=== PATIENT | female | born 1935 | race African-American/Black ===

== ENCOUNTER 2018-07-29 15:04 | Emergency (ER) | payer MEDICARE, OTHER ==
[~2018-07-29] VITALS: Ht 162.6 cm; Wt 72.6 kg
[2018-07-29 15:13] VITALS: BP 133/54
[2018-07-29] MEDS ORDERED: Sodium Chloride 500ML 500 ML IV ONE (15:40)
--- NOTE | 2018-07-29 17:04 | Diagnostic Imaging Report ---
Indication: Shortness of breath Technique: One view of the chest Comparison: none Findings: Right hemidiaphragm is elevated. The heart is borderline enlarged. There are degenerative changes of the thoracic spine. Impression: Border line cardiomegaly No acute process
[2018-07-29 17:05] LABS: BASOPHILS % (AUTO) 1.5 % (0.0-2.0); EOSINOPHILS % (AUTO) 2.5 % (0.0-3.0); HEMATOCRIT 42.1 % (37.0-47.0); HEMOGLOBIN 13.6 G/DL (12.0-16.0); LYMPHOCYTES % (AUTO) 21.3 % (20.0-45.0); MEAN CORPUSCULAR VOLUME 90 FL (80-99); MONOCYTES % (AUTO) 5.7 % (1.0-10.0); NEUTROPHILS % (AUTO) 69.1 % (45.0-75.0); PLATELET COUNT 237 K/UL (150-450); RED BLOOD COUNT 4.65 M/UL (4.20-5.40); RED CELL DISTRIBUTION WIDTH 14.7 % (11.6-14.8); WHITE BLOOD COUNT 5.2 K/UL (4.8-10.8)
[2018-07-29 17:25] LABS: ANION GAP 6 mmol/L (5-15); BLOOD UREA NITROGEN 21 mg/dL (7-18); CALCIUM 8.9 MG/DL (8.5-10.1); CARBON DIOXIDE 30 MMOL/L (21-32); CHLORIDE 107 MMOL/L (98-107); POTASSIUM 4.1 MMOL/L (3.5-5.1); SODIUM 143 MMOL/L (136-145)
[2018-07-29 17:32] LABS: ALANINE AMINOTRANSFERASE 27 U/L (12-78); ALBUMIN 2.9 G/DL (3.4-5.0); ALBUMIN/GLOBULIN RATIO 0.8 (1.0-2.7); ALKALINE PHOSPHATASE 65 U/L (46-116); ASPARTATE AMINO TRANSFERASE 21 U/L (15-37); BILIRUBIN,TOTAL 0.4 MG/DL (0.2-1.0); CKMB 0.5 NG/ML (0.0-3.6); CREATINE KINASE 50 U/L (26-308)
[2018-07-29 17:37] LABS: APPEARANCE,URINE CLEAR; BILIRUBIN, URINE NEGATIVE (NEGATIVE); GLUCOSE, URINE (UA) NEGATIVE (NEGATIVE); KETONES,URINE NEGATIVE (NEGATIVE); LEUKOCYTE ESTERASE ,URINE 1+ (NEGATIVE); NITRITE,URINE NEGATIVE (NEGATIVE); PH,URINE 6 (4.5-8.0); PROTEIN,URINE NEGATIVE (NEGATIVE); UROBILINOGEN,URINE 1 MG/DL (0.0-1.0)
[2018-07-29 17:39] LABS: COLOR,URINE YELLOW
--- NOTE | 2018-07-29 17:42 | Emergency Room Report ---
History of Present Illness General Chief Complaint: Syncope Source: Patient, Family Member Present Illness HPI 83-year-old female presents ED for evaluation. Patient brought in by EMS. grandson at bedside states that patient was at laundromat with him when she started to feel weak, became altered momentarily. Upon arrival patient is awake alert oriented 2 at baseline. History of dementia. Takes donepezil. Daughter states that patient has been having a slow mental decline over several months. States her PMD does not do anything for the patient. Upon arrival patient states she feels okay. Denies any dizziness or weakness. Denies chest pain or shortness of breath. Denies nausea or vomiting. No other aggravating relieving factors. Denies any other associated symptoms Allergies: Coded Allergies: ASPIRIN (Verified Allergy, Unknown, 07/29/18) Uncoded Allergies: PENICILLIN (Allergy, Unknown, 07/29/18) Patient History Past Medical History: DM, HTN Past Surgical History: none Pertinent Family History: none Social History: Denies: smoking, alcohol use, drug use Now: No Immunizations: UTD Reviewed Nursing Documentation: PMH: Agreed; PSxH: Agreed Nursing Documentation-PMH Past Medical History: No History, Except For Hx Hypertension: Yes Hx Diabetes: Yes Review of Systems All Other Systems: negative except mentioned in HPI Physical Exam Vital Signs Date Time Temp Pulse Resp B/P (MAP) Pulse Ox O2 Delivery O2 Flow Rate FiO2 07/29/18 15:07 98.1 75 14 121/59 99 Room Air 98.1 Sp02 EP Interpretation: reviewed, normal General Appearance: no apparent distress, alert, GCS 15, non-toxic Head: normocephalic, atraumatic Eyes: bilateral eye normal inspection, bilateral eye PERRL ENT: hearing grossly normal, normal pharynx, no angioedema, normal voice Neck: full range of motion, supple/symm/no masses Respiratory: chest non-tender, lungs clear, normal breath sounds, speaking full sentences Cardiovascular #1: regular rate, rhythm, no edema Cardiovascular #2: 2+ carotid (R), 2+ carotid (L), 2+ radial (R), 2+ radial (L) , 2+ dorsalis pedis (R), 2+ dorsalis pedis (L) Gastrointestinal: normal bowel sounds, non tender, soft, non-distended, no guarding, no rebound Rectal: deferred Genitourinary: normal inspection, no CVA tenderness Musculoskeletal: back normal, gait/station normal, normal range of motion, non- tender Neurologic: alert, oriented x3, responsive, motor strength/tone normal, sensory intact, speech normal Psychiatric: judgement/insight normal, memory normal, mood/affect normal, no suicidal/homicidal ideation Reflexes: 3+ bicep (R), 3+ bicep (L), 3+ tricep (R), 3+ tricep (L), 3+ knee (R) , 3+ knee (L) Skin: normal color, no rash, warm/dry, well hydrated Lymphatic: no adenopathy Medical Decision Making Diagnostic Impression: Primary Impression: Weakness ER Course Hospital Course 83 yo F presents with episode of weakness. no LOC Differential diagnoses include: arrythmia, dehydration, UTI Clinical course Patient placed on stretcher. on hospital monitor. After initial history and physical I ordered labs, EKG, chest Xray, IVFs labs reviewed- no leukocytosis, Hb/Hct stable, electrolytes ok, troponins negative, UA negative Chest x-ray- cardiomegaly EKG - NSR, no acute ischemic changes interpreted bym e Discussed findings with patient, family. Given negative workup and patient feeling better patient wishes to be discharged. Family agrees. I agree with assessment pending close outpatient follow-up. Family just moved here and is requesting PMD referral. I will provide PMD referrals I. I feel this is a highly complex case requiring extensive working including EKG/Rhythm strip, Xray/CT/US, Blood/urine lab work, repeat exams while in ED, and administration of strong opiates/narcotics for pain control, admission to hospital or close patient follow up. Diagnosis - weakness Stable and discharged to home. Followup with PMD. Return to ED if symptoms recur or worsen Labs Test 07/29/18 16:50 07/29/18 17:00 White Blood Count 5.2 K/UL (4.8-10.8) Red Blood Count 4.65 M/UL (4.20-5.40) Hemoglobin 13.6 G/DL (12.0-16.0) Hematocrit 42.1 % (37.0-47.0) Mean Corpuscular Volume 90 FL (80-99) Mean Corpuscular Hemoglobin 29.2 PG (27.0-31.0) Mean Corpuscular Hemoglobin Concent 32.3 G/DL (32.0-36.0) Red Cell Distribution Width 14.7 % (11.6-14.8) Platelet Count 237 K/UL (150-450) Mean Platelet Volume 5.6 FL (6.5-10.1) Neutrophils (%) (Auto) 69.1 % (45.0-75.0) Lymphocytes (%) (Auto) 21.3 % (20.0-45.0) Monocytes (%) (Auto) 5.7 % (1.0-10.0) Eosinophils (%) (Auto) 2.5 % (0.0-3.0) Basophils (%) (Auto) 1.5 % (0.0-2.0) Sodium Level 143 MMOL/L (136-145) Potassium Level 4.1 MMOL/L (3.5-5.1) Chloride Level 107 MMOL/L (98-107) Carbon Dioxide Level 30 MMOL/L (21-32) Anion Gap 6 mmol/L (5-15) Blood Urea Nitrogen 21 mg/dL (7-18) Creatinine 1.0 MG/DL (0.55-1.30) Estimat Glomerular Filtration Rate mL/min (>60) Glucose Level 103 MG/DL (74-106) Calcium Level 8.9 MG/DL (8.5-10.1) Total Bilirubin 0.4 MG/DL (0.2-1.0) Aspartate Amino Transf (AST/SGOT) 21 U/L (15-37) Alanine Aminotransferase (ALT/SGPT) 27 U/L (12-78) Alkaline Phosphatase 65 U/L (46-116) Total Creatine Kinase 50 U/L (26-308) Creatine Kinase MB 0.5 NG/ML (0.0-3.6) Creatine Kinase MB Relative Index 1.0 Troponin I 0.028 ng/mL (0.000-0.056) Pro-B-Type Natriuretic Peptide 689 pg/mL (0-125) Total Protein 6.5 G/DL (6.4-8.2) Albumin 2.9 G/DL (3.4-5.0) Globulin 3.6 g/dL Albumin/Globulin Ratio 0.8 (1.0-2.7) Urine Color Yellow Urine Appearance Clear Urine pH 6 (4.5-8.0) Urine Specific [place] 1.015 (1.005-1.035) Urine Protein Negative (NEGATIVE) Urine Glucose (UA) Negative (NEGATIVE) Urine Ketones Negative (NEGATIVE) Urine Blood Negative (NEGATIVE) Urine Nitrite Negative (NEGATIVE) Urine Bilirubin Negative (NEGATIVE) Urine Urobilinogen 1 MG/DL (0.0-1.0) Urine Leukocyte Esterase 1+ (NEGATIVE) Urine RBC 0-2 /HPF (0 - 2) Urine WBC 0-2 /HPF (0 - 2) Urine Squamous Epithelial Cells Few /LPF (NONE/OCC) Urine Bacteria Few /HPF (NONE) EKG Diagnostic Results Rate: normal Rhythm: NSR ST Segments: no acute changes ASA given to the pt in ED: No Rhythm Strip Diag. Results EP Interpretation: yes Rhythm: NSR, no PVC's, no ectopy Chest X-Ray Diagnostic Results Chest X-Ray Diagnostic Results : Chest X-Ray Ordered: Yes # of Views/Limited/Complete: 1 View Indication: Other - weakness EP Interpretation: Yes Interpretation: no consolidation, no effusion, no pneumothorax, no acute cardiopulmonary disease, other - cardiomegaly Impression: Other - cardiomegaly Electronically Signed by: Electronically signed by Ariel Lang MD Last Vital Signs Date Time Temp Pulse Resp B/P (MAP) Pulse Ox O2 Delivery O2 Flow Rate FiO2 07/29/18 15:13 98.1 68 14 133/54 99 Room Air 98.1 Status: improved Disposition: HOME, SELF-CARE Condition: Stable Ariel Lang MD Jul 29, 2018 17:42
[2018-07-29 18:44] VITALS: BP 130/50
--- NOTE | 2018-08-01 16:14 | Cardiology Report ---
APPROVED REPORT EKG Measurement Heart [id number] Atrial fibrillation Possible Anterior infarct, age undetermined Abnormal ECG
== END 2018-07-29 18:35 | disposition home or self-care (01) ==
LOC: EDBD 15:04 → EMR 17:25
DX: R53.1 Weakness (principal); R55 Syncope and collapse; E11.9 Type 2 diabetes mellitus without complications; I10 Essential (primary) hypertension; Z88.6 Allergy status to analgesic agent; Z88.0 Allergy status to penicillin
CPT/HCPCS: 36415; 71045; 80053; 81003; 82550; 82553; 83880; 84484; 85025; 93005; 99283

== ENCOUNTER 2018-10-16 02:26 | Inpatient (IN) | payer MEDICARE ==
[~2018-10-16] VITALS: Ht 160 cm; Wt 83.9 kg
[2018-10-16] MEDS ORDERED: MUCINEX COLD-F177 M1 PO (02:41)
[2018-10-16 02:45] VITALS: BP 123/61
[2018-10-16] MEDS ORDERED: Acetaminophen 500mg (ES) tab ORAL ONE (03:15)
[2018-10-16 03:19] LABS: EOSINOPHILS % (AUTO) 0.1 % (0.0-3.0); HEMATOCRIT 40.4 % (37.0-47.0); HEMOGLOBIN 12.9 G/DL (12.0-16.0); LYMPHOCYTES % (AUTO) 8.9 % (20.0-45.0); MEAN CORPUSCULAR VOLUME 89 FL (80-99); MONOCYTES % (AUTO) 7.4 % (1.0-10.0); NEUTROPHILS % (AUTO) 82.5 % (45.0-75.0); PLATELET COUNT 294 K/UL (150-450); RED BLOOD COUNT 4.56 M/UL (4.20-5.40); WHITE BLOOD COUNT 11.9 K/UL (4.8-10.8)
[2018-10-16 03:20] LABS: APPEARANCE,URINE SLIGHTLY CLOUDY; BILIRUBIN, URINE NEGATIVE (NEGATIVE); GLUCOSE, URINE (UA) NEGATIVE (NEGATIVE); KETONES,URINE NEGATIVE (NEGATIVE); LEUKOCYTE ESTERASE ,URINE 1+ (NEGATIVE); NITRITE,URINE NEGATIVE (NEGATIVE); PH,URINE 5 (4.5-8.0); PROTEIN,URINE 3+ (NEGATIVE); UROBILINOGEN,URINE 4 MG/DL (0.0-1.0)
[2018-10-16 03:23] LABS: COLOR,URINE YELLOW
[2018-10-16 03:31] LABS: ANION GAP 8 mmol/L (5-15); BLOOD UREA NITROGEN 13 mg/dL (7-18); CALCIUM 8.5 MG/DL (8.5-10.1); CARBON DIOXIDE 29 MMOL/L (21-32); CHLORIDE 102 MMOL/L (98-107); CREATININE 0.8 MG/DL (0.55-1.30); POTASSIUM 3.8 MMOL/L (3.5-5.1); SODIUM 139 MMOL/L (136-145)
[2018-10-16 03:35] LABS: ALANINE AMINOTRANSFERASE 24 U/L (12-78); ALBUMIN 2.6 G/DL (3.4-5.0); ALBUMIN/GLOBULIN RATIO 0.5 (1.0-2.7); ALKALINE PHOSPHATASE 80 U/L (46-116); ASPARTATE AMINO TRANSFERASE 17 U/L (15-37); BILIRUBIN,TOTAL 0.9 MG/DL (0.2-1.0)
[2018-10-16] MEDS ORDERED: Azithromycin 500 MG in NS 275 ML IV ONE (04:15)
[2018-10-16] MEDS ORDERED: Cefepime HCl 1 GM in D5W 55 ML IVPB ONE (04:15)
--- NOTE | 2018-10-16 04:46 | Diagnostic Imaging Report ---
EXAM: XR Chest, 1 View CLINICAL HISTORY: COUGH TECHNIQUE: Frontal view of the chest. COMPARISON: 07/29/18 FINDINGS: Lungs: Interval development of confluent opacity in the left perihilar region. Pleural space: Unremarkable. No pneumothorax. Heart: Enlarged cardiovascular silhouette accentuated by low lung volume. This appears unchanged. Mediastinum: Unremarkable. Bones/joints: Degenerative changes in the spine and both shoulders Vasculature: Mildly tortuous thoracic aorta, unchanged. Upper abdomen: Elevated right hemidiaphragm, unchanged. IMPRESSION: Developing infiltrate in the left perihilar region. Follow-up to clearing recommended to exclude underlying abnormality.
--- NOTE | 2018-10-16 05:29 | Emergency Room Report ---
History of Present Illness General Chief Complaint: Fever Source: Patient, Family Member Present Illness HPI 83-year-old female presents ED for evaluation. Patient brought in by daughter for fever, cough and lethargy for the past week. Temp 102 in triage. Complaining of productive cough. History of dementia but states that patient appears more confused than baseline. Patient states she feels okay. Denies chest pain or shortness of breath. Family states that patient does not have a PMD yet as they just moved here recently. No other aggravating relieving factors. Denies any other associated symptoms Allergies: Coded Allergies: ASPIRIN (Verified Allergy, Unknown, 07/29/18) Uncoded Allergies: PENICILLIN (Allergy, Unknown, 07/29/18) Patient History Past Medical History: DM, HTN Past Surgical History: none Pertinent Family History: none Social History: Denies: smoking, alcohol use, drug use Last Menstrual Period: 4 decades ago Now: No Immunizations: UTD Reviewed Nursing Documentation: PMH: Agreed; PSxH: Agreed Nursing Documentation-PMH Hx Hypertension: Yes Hx Diabetes: Yes Review of Systems All Other Systems: negative except mentioned in HPI Physical Exam Vital Signs Date Time Temp Pulse Resp B/P (MAP) Pulse Ox O2 Delivery O2 Flow Rate FiO2 10/16/18 02:36 102.0 90 18 125/58 97 Room Air Sp02 EP Interpretation: reviewed, normal General Appearance: no apparent distress, GCS 15, non-toxic, lethargic Head: normocephalic, atraumatic Eyes: bilateral eye normal inspection, bilateral eye PERRL ENT: hearing grossly normal, normal pharynx, no angioedema, normal voice Neck: full range of motion, supple/symm/no masses Respiratory: chest non-tender, decreased breath sounds, speaking full sentences Cardiovascular #1: regular rate, rhythm, no edema Cardiovascular #2: 2+ carotid (R), 2+ carotid (L), 2+ radial (R), 2+ radial (L) , 2+ dorsalis pedis (R), 2+ dorsalis pedis (L) Gastrointestinal: normal bowel sounds, non tender, soft, non-distended, no guarding, no rebound Rectal: deferred Genitourinary: normal inspection, no CVA tenderness Musculoskeletal: back normal, gait/station normal, normal range of motion, non- tender Neurologic: alert, responsive, motor strength/tone normal, sensory intact, speech normal Psychiatric: mood/affect normal, no suicidal/homicidal ideation, other - dementia Reflexes: 3+ bicep (R), 3+ bicep (L), 3+ tricep (R), 3+ tricep (L), 3+ knee (R) , 3+ knee (L) Skin: normal color, no rash, warm/dry, well hydrated Lymphatic: no adenopathy Medical Decision Making Diagnostic Impression: Primary Impression: Pneumonia Qualified Codes: J18.1 - Lobar pneumonia, unspecified organism Additional Impressions: UTI (urinary tract infection) Qualified Codes: N39.0 - Urinary tract infection, site not specified Weakness ER Course Hospital Course 83 yo F presents with cough, increased weakness, fever Differential diagnoses include: Pneumonia, CHF exacerbation, pneumothorax, fluid overload Clinical course Patient placed on stretcher. On senior ssis developer. After initial history and physical, I ordered labs, IV fluids, chest x-ray, blood cultures, UA. Labs - minimal leukocytosis noted, hemoglobin/hematocrit stable, electrolytes ok , lactate okay, UA + bacteria CXR - LLL infiltrate Given Tylenol for fever. Given IV fluids. Given broad-spectrum antibiotics. flu swab negative patient will be admitted to Dr Stoddard. I feel this is a highly complex case requiring extensive working including EKG/ Rhythm strip, Xray/CT/US, Blood/urine lab work, repeat exams while in ED, and administration of strong opiates/narcotics for pain control, admission to hospital or close patient follow up. Diagnosis - pneumonia, UTI, weakness transferred in serious condition Labs Test 10/16/18 02:50 10/16/18 03:00 Urine Color Yellow Urine Appearance Slightly cloudy Urine pH 5 (4.5-8.0) Urine Specific [place] 1.015 (1.005-1.035) Urine Protein 3+ (NEGATIVE) Urine Glucose (UA) Negative (NEGATIVE) Urine Ketones Negative (NEGATIVE) Urine Blood 5+ (NEGATIVE) Urine Nitrite Negative (NEGATIVE) Urine Bilirubin Negative (NEGATIVE) Urine Urobilinogen 4 MG/DL (0.0-1.0) Urine Leukocyte Esterase 1+ (NEGATIVE) Urine RBC 5-10 /HPF (0 - 2) Urine WBC 2-4 /HPF (0 - 2) Urine Squamous Epithelial Cells Few /LPF (NONE/OCC) Urine Bacteria Moderate /HPF (NONE) White Blood Count 11.9 K/UL (4.8-10.8) Red Blood Count 4.56 M/UL (4.20-5.40) Hemoglobin 12.9 G/DL (12.0-16.0) Hematocrit 40.4 % (37.0-47.0) Mean Corpuscular Volume 89 FL (80-99) Mean Corpuscular Hemoglobin 28.3 PG (27.0-31.0) Mean Corpuscular Hemoglobin Concent 31.9 G/DL (32.0-36.0) Red Cell Distribution Width 13.0 % (11.6-14.8) Platelet Count 294 K/UL (150-450) Mean Platelet Volume 6.3 FL (6.5-10.1) Neutrophils (%) (Auto) 82.5 % (45.0-75.0) Lymphocytes (%) (Auto) 8.9 % (20.0-45.0) Monocytes (%) (Auto) 7.4 % (1.0-10.0) Eosinophils (%) (Auto) 0.1 % (0.0-3.0) Basophils (%) (Auto) 1.0 % (0.0-2.0) Sodium Level 139 MMOL/L (136-145) Potassium Level 3.8 MMOL/L (3.5-5.1) Chloride Level 102 MMOL/L (98-107) Carbon Dioxide Level 29 MMOL/L (21-32) Anion Gap 8 mmol/L (5-15) Blood Urea Nitrogen 13 mg/dL (7-18) Creatinine 0.8 MG/DL (0.55-1.30) Estimat Glomerular Filtration Rate mL/min (>60) Glucose Level 190 MG/DL (74-106) Lactic Acid Level 1.60 mmol/L (0.4-2.0) Calcium Level 8.5 MG/DL (8.5-10.1) Total Bilirubin 0.9 MG/DL (0.2-1.0) Aspartate Amino Transf (AST/SGOT) 17 U/L (15-37) Alanine Aminotransferase (ALT/SGPT) 24 U/L (12-78) Alkaline Phosphatase 80 U/L (46-116) Total Protein 7.5 G/DL (6.4-8.2) Albumin 2.6 G/DL (3.4-5.0) Globulin 4.9 g/dL Albumin/Globulin Ratio 0.5 (1.0-2.7) Chest X-Ray Diagnostic Results Chest X-Ray Diagnostic Results : Chest X-Ray Ordered: Yes # of Views/Limited/Complete: 1 View Indication: Other - cough EP Interpretation: Yes Interpretation: no pneumothorax, other - LLL infiltrate Impression: Other - PNA Electronically Signed by: Electronically signed by Ariel Lang MD Last Vital Signs Date Time Temp Pulse Resp B/P (MAP) Pulse Ox O2 Delivery O2 Flow Rate FiO2 10/16/18 02:36 102.0 90 18 125/58 97 Room Air Status: improved Disposition: ADMITTED INPATIENT Condition: Serious Referrals: NOT CHOSEN IPA/,REFERRING (PCP) Ariel Lang MD Oct 16, 2018 05:29
[2018-10-16 06:49] VITALS: BP 123/45
[2018-10-16 08:00] VITALS: BP 142/57
[2018-10-16] MEDS ORDERED: METFORMIN HCL500 M1 ORAL (08:09)
[2018-10-16] MEDS ORDERED: MULTIVITAMINS1 EAC2 ORAL (08:09)
[2018-10-16] MEDS ORDERED: ASPIR 8181 MG ORAL (08:09)
[2018-10-16] MEDS ORDERED: NORVASC2.5 MG ORAL (08:09)
[2018-10-16] MEDS ORDERED: NEURONTIN300 MG ORAL (08:09)
[2018-10-16] MEDS ORDERED: TYLENOL EXTRA500 MG ORAL (08:09)
[2018-10-16] MEDS ORDERED: cefTRIAXone 1 GM in D5W 55 ML IVPB SCH (08:15)
[2018-10-16] MEDS ORDERED: Miralax 17gm pkt ORAL PRN ×2 (08:15→08:49)
[2018-10-16] MEDS ORDERED: metFORMIN 500mg tab ORAL SCH (09:00)
[2018-10-16] MEDS: Heparin 5000 units/ml inj SUBQ SCH ×2 (09:16→21:55)
[2018-10-16] MEDS ORDERED: ARICEPT5 MG ORAL (09:36)
[2018-10-16] MEDS ORDERED: LOVASTATIN40 MG ORAL (09:36)
[2018-10-16] MEDS ORDERED: LOSARTAN POTAS100 MG ORAL (09:36)
[2018-10-16] MEDS ORDERED: DITROPAN XL5 MG ORAL (09:36)
[2018-10-16] MEDS: Albuterol/Ipratropium 3ml neb HHN SCH ×4 (11:00→23:00)
[2018-10-16] MEDS ORDERED: Losartan 50mg tab ORAL SCH (11:00)
[2018-10-16] MEDS ORDERED: Donepezil 5mg Tab ORAL SCH (11:00)
[2018-10-16] MEDS ORDERED: Oxybutynin 5mg tab ORAL SCH (11:00)
--- NOTE | 2018-10-16 11:15 | History and Physical Report ---
DATE OF ADMISSION: 10/16/2018 CHIEF COMPLAINT AND REASON FOR HOSPITALIZATION: The patient is admitted with fever, pneumonia, possible UTI. HISTORY OF PRESENT ILLNESS: The patient is an 83-year-old lady who lives at home and has Alzheimer's dementia, hypertension, and diabetes. She presents with cough, weakness, fever, and possible UTI. She has generally been stable at home, walks with a cane, uses a wheelchair when she leaves the house. ALLERGIES: None known, but she has intolerance of GI with 325 of aspirin, can take 81 of aspirin. Allergy also includes penicillin for rash, not clear details. SURGERIES: Include appendectomy, hysterectomy, cataract of both eyes, left knee. HOME MEDICATIONS: Include the following. Tylenol, amlodipine, aspirin, donepezil, gabapentin, losartan, lovastatin, metformin, multivitamin, oxybutynin, and Mucinex for cough. HABITS: She was a smoker, quit about 30 years ago. No alcohol or drugs. SYSTEM REVIEW: HEAD, EYES, EARS, NOSE, THROAT: She has diminished hearing. I think she has had mild diminished vision. ENDOCRINE: History of diabetes. No known thyroid disease. PULMONARY: No chronic cough, asthma, or TB. CARDIAC: No angina, [place], or palpitations. There is history of hypertension and hyperlipidemia. GASTROINTESTINAL: No GI bleeding, ulcers, or abdominal pain. GENITOURINARY: She is on medications for urinary incontinence. Generally, she has had incontinence of urine recently. MUSCULOSKELETAL: History of osteoarthritis. She uses a cane. NEUROLOGIC: No CVA or syncope. There is history of memory impairment. PHYSICAL EXAMINATION: GENERAL: The patient is an alert lady, lying in bed. Family at the bedside. VITAL SIGNS: As follows. Temperature 98.1, pulse 79, respiratory rate 16, blood pressure 133/45. She had temperature of 102 in the emergency room. HEAD, EYES, EARS, NOSE, THROAT: Oral mucosa is moist. Sclerae are nonicteric. Ocular motions intact in all directions. NECK: No adenopathy. LUNGS: Few faint expiratory rhonchi. No distress. HEART: Regular rhythm. No murmur. ABDOMEN: Soft without organomegaly or masses. EXTREMITIES: No edema, cyanosis, or clubbing. There are degenerative changes in the knees. NEUROLOGIC: The patient is alert, disoriented, cannot give the month or the year. She seems to be talking to herself. Ocular motions intact in all directions. Smile symmetric. Tongue is midline. She moves all extremities. PERTINENT LABORATORY DATA: White count 11.9, hemoglobin 12.9. Electrolytes normal. Creatinine 0.8, glucose 190, lactic 1.6, albumin 2.6. Urinalysis shows 3+ protein, 5+ blood, 5-10 rbc, 2-4 white cells per high-powered field. A chest x-ray done in the emergency department shows developing infiltrate in the left perihilar . IMPRESSION: 1. Pneumonia. 2. Questionable UTI. 3. Proteinuria. 4. Diabetes. 5. Hypertension. 6. History of urinary incontinence. 7. History of Alzheimer's. PLAN: The patient will be placed on antibiotics for community-acquired pneumonia. We will give her supportive care and watch closely in view of her comorbidities. CODE STATUS: Full Code, but if she does not respond, the family would consider discontinuing life support per directives discussed before with the patient when she was mentally competent. Jed Stoddard M.D. DR: Josafat JOB#: [id number] CC:
[2018-10-16 11:56] VITALS: BP 134/50
[2018-10-16 12:01] VITALS: BP 132/50
[2018-10-16] MEDS: NovoLOG Insulin Flexpen SUBQ SCH ×3 (12:45→21:55)
[2018-10-16] MEDS: cefTRIAXone 1 GM in D5W 55 ML IVPB SCH (12:46)
[2018-10-16 16:15] VITALS: BP 133/95
[2018-10-16] MEDS: metFORMIN 500mg tab ORAL SCH (17:09)
[2018-10-16] MEDS: Atorvastatin 20mg tab ORAL SCH (21:54)
[2018-10-17] VITALS: BP 105/64
[2018-10-17] MEDS: Albuterol/Ipratropium 3ml neb HHN SCH ×6 (03:00→23:46)
[2018-10-17 04:00] VITALS: BP 123/55
[2018-10-17] MEDS: Azithromycin 250 MG in D5W 275 ML IV SCH (06:40)
[2018-10-17] MEDS: NovoLOG Insulin Flexpen SUBQ SCH ×4 (06:41→20:39)
[2018-10-17 07:29] LABS: ALANINE AMINOTRANSFERASE 66 U/L (12-78); ALBUMIN 2.1 G/DL (3.4-5.0); ALBUMIN/GLOBULIN RATIO 0.4 (1.0-2.7); ALKALINE PHOSPHATASE 97 U/L (46-116); ANION GAP 6 mmol/L (5-15); ASPARTATE AMINO TRANSFERASE 45 U/L (15-37); BILIRUBIN,TOTAL 0.6 MG/DL (0.2-1.0); BLOOD UREA NITROGEN 13 mg/dL (7-18); CALCIUM 8.5 MG/DL (8.5-10.1); CARBON DIOXIDE 32 MMOL/L (21-32); CHLORIDE 106 MMOL/L (98-107); CREATININE 0.8 MG/DL (0.55-1.30); POTASSIUM 3.7 MMOL/L (3.5-5.1); SODIUM 143 MMOL/L (136-145)
[2018-10-17 07:31] LABS: BASOPHILS % (AUTO) 1.2 % (0.0-2.0); HEMATOCRIT 34.9 % (37.0-47.0); LYMPHOCYTES % (AUTO) 10.4 % (20.0-45.0); MEAN CORPUSCULAR VOLUME 91 FL (80-99); MONOCYTES % (AUTO) 8.4 % (1.0-10.0); PLATELET COUNT 267 K/UL (150-450); RED BLOOD COUNT 3.85 M/UL (4.20-5.40); RED CELL DISTRIBUTION WIDTH 13.8 % (11.6-14.8); WHITE BLOOD COUNT 12.3 K/UL (4.8-10.8)
[2018-10-17 08:00] VITALS: BP 107/49
[2018-10-17] MEDS: Oxybutynin 5mg tab ORAL SCH (08:20)
[2018-10-17] MEDS: metFORMIN 500mg tab ORAL SCH ×2 (08:20→18:49)
[2018-10-17] MEDS: Donepezil 5mg Tab ORAL SCH (08:20)
[2018-10-17] MEDS: Heparin 5000 units/ml inj SUBQ SCH ×2 (08:21→20:35)
[2018-10-17] MEDS: Losartan 50mg tab ORAL SCH (08:22)
--- NOTE | 2018-10-17 11:44 | General Progress Note ---
Assessment/Plan Problem List: (1) Alzheimer disease ICD Codes: G30.9 - Alzheimer's disease, unspecified; F02.80 - Dementia in other diseases classified elsewhere without behavioral disturbance SNOMED: 60359543 (2) Diabetes ICD Codes: E11.9 - Type 2 diabetes mellitus without complications SNOMED: 92064704 (3) Pneumonia ICD Codes: J18.9 - Pneumonia, unspecified organism SNOMED: 776945596 Qualifiers: Qualified Codes: J18.1 - Lobar pneumonia, unspecified organism (4) Weakness ICD Codes: R53.1 - Weakness SNOMED: 25890707 Assessment/Plan continue antibiotics, hhn, mobilize Subjective Constitutional: Reports: weakness HEENT: Reports: no symptoms Cardiovascular: Reports: no symptoms Respiratory: Reports: cough Gastrointestinal/Abdominal: Reports: no symptoms Genitourinary: Reports: incontinence Neurologic/Psychiatric: Reports: pre-existing deficit Endocrine: Reports: no symptoms Hematologic/Lymphatic: Reports: no symptoms Allergies: Coded Allergies: ASPIRIN (Verified Allergy, Unknown, 07/29/18) HYDROMORPHONE (Verified Adverse Reaction, Severe, Hallucinations, 10/16/18) LORAZEPAM (Verified Adverse Reaction, Severe, Altered Mental Status, ) per Laureen matias, patient had afib MORPHINE (Verified Adverse Reaction, Severe, hallucinations, 10/16/18) Objective Last 24 Hour Vital Signs Date Time Temp Pulse Resp B/P (MAP) Pulse Ox O2 Delivery O2 Flow Rate FiO2 10/17/18 10:44 81 18 100 Nasal Cannula 1.0 10/17/18 10:44 28 10/17/18 10:36 87 18 98 Nasal Cannula 2.0 10/17/18 09:00 Nasal Cannula 2.0 10/17/18 08:22 107/49 10/17/18 08:22 80 107/49 10/17/18 08:00 97.8 80 20 107/49 (68) 100 10/17/18 07:37 86 18 100 Nasal Cannula 2.0 10/17/18 07:36 28 10/17/18 07:31 99 Nasal Cannula 2.0 10/17/18 07:30 Nasal Cannula 2.0 10/17/18 07:27 85 18 99 Nasal Cannula 2.0 10/17/18 04:00 97.2 87 18 123/55 (77) 96 10/17/18 03:31 Nasal Cannula 2.0 28 10/17/18 03:31 Nasal Cannula 2.0 28 10/17/18 00:00 96.5 65 16 105/64 (78) 98 10/16/18 23:40 Nasal Cannula 2.0 28 10/16/18 23:38 Nasal Cannula 2.0 28 10/16/18 21:00 Nasal Cannula 2.0 10/16/18 20:45 69 18 100 Nasal Cannula 2.0 28 10/16/18 20:38 Nasal Cannula 2.0 28 10/16/18 20:37 28 10/16/18 20:36 67 18 99 Nasal Cannula 2.0 28 10/16/18 18:46 98.4 10/16/18 16:45 100.8 10/16/18 16:15 101.6 10/16/18 16:15 100.0 91 20 133/95 (108) 97 10/16/18 14:48 81 18 99 Nasal Cannula 2.0 28 10/16/18 14:47 28 10/16/18 14:36 81 18 97 Nasal Cannula 2.0 28 10/16/18 13:00 Nasal Cannula 2.0 28 10/16/18 13:00 Nasal Cannula 2.0 28 10/16/18 12:14 126/56 10/16/18 12:01 99.7 90 20 132/50 (77) 100 10/16/18 11:56 99.7 90 20 134/50 (78) 90 Intake and Output 10/16/18 10/17/18 19:00 07:00 Intake Total 240 ml Balance 240 ml Intake Oral 240 ml # Voids 2 3 # Bowel Movements 1 Laboratory Tests 10/17/18 05:55: White Blood Count 12.3H, Red Blood Count 3.85L, Hemoglobin 11.0L, Hematocrit 34.9L, Mean Corpuscular Volume 91, Mean Corpuscular Hemoglobin 28.6, Mean Corpuscular Hemoglobin Concent 31.5L, Red Cell Distribution Width 13.8, Platelet Count 267, Mean Platelet Volume 5.8L, Neutrophils (%) (Auto) 79.0H, Lymphocytes (%) (Auto) 10.4L, Monocytes (%) (Auto) 8.4, Eosinophils (%) (Auto) 1.0, Basophils (%) (Auto) 1.2, Sodium Level 143, Potassium Level 3.7, Chloride Level 106, Carbon Dioxide Level 32, Anion Gap 6, Blood Urea Nitrogen 13, Creatinine 0.8, Estimat Glomerular Filtration Rate , Glucose Level 150H, Calcium Level 8.5, Total Bilirubin 0.6, Aspartate Amino Transf (AST/SGOT) 45H, Alanine Aminotransferase (ALT/SGPT) 66, Alkaline Phosphatase 97, Total Protein 6.8, Albumin 2.1L, Globulin 4.7, Albumin/Globulin Ratio 0.4L Height (Feet): 5 Height (Inches): 3.00 Weight (Pounds): 185 General Appearance: no apparent distress, alert EENT: PERRL/EOMI Neck: normal alignment Cardiovascular: normal rate, regular rhythm Respiratory/Chest: crackles/rales Neurologic: rail signal mechanic II-XII grossly normal, disoriented Jed Stoddard MD Oct 17, 2018 11:44
[2018-10-17] MEDS: cefTRIAXone 1 GM in D5W 55 ML IVPB SCH (12:02)
[2018-10-17 12:49] VITALS: BP 102/58
[2018-10-17 16:00] VITALS: BP 111/47
[2018-10-17 20:00] VITALS: BP 141/55
[2018-10-17] MEDS: Atorvastatin 20mg tab ORAL SCH (20:31)
[2018-10-18] VITALS: BP 125/53
[2018-10-18] MEDS: Albuterol/Ipratropium 3ml neb HHN SCH ×6 (03:33→23:08)
[2018-10-18 04:00] VITALS: BP 122/54
[2018-10-18] MEDS: Azithromycin 250 MG in D5W 275 ML IV SCH (05:31)
[2018-10-18] MEDS: NovoLOG Insulin Flexpen SUBQ SCH ×4 (05:38→20:42)
[2018-10-18 07:37] LABS: BASOPHILS % (AUTO) 1.5 % (0.0-2.0); EOSINOPHILS % (AUTO) 1.3 % (0.0-3.0); HEMATOCRIT 31.1 % (37.0-47.0); MEAN CORPUSCULAR VOLUME 91 FL (80-99); MONOCYTES % (AUTO) 9.4 % (1.0-10.0); NEUTROPHILS % (AUTO) 73.9 % (45.0-75.0); PLATELET COUNT 269 K/UL (150-450); RED BLOOD COUNT 3.43 M/UL (4.20-5.40); RED CELL DISTRIBUTION WIDTH 13.2 % (11.6-14.8); WHITE BLOOD COUNT 9.2 K/UL (4.8-10.8)
[2018-10-18 07:55] LABS: ANION GAP 6 mmol/L (5-15); BLOOD UREA NITROGEN 15 mg/dL (7-18); CALCIUM 8.2 MG/DL (8.5-10.1); CARBON DIOXIDE 30 MMOL/L (21-32); CHLORIDE 101 MMOL/L (98-107); CREATININE 0.9 MG/DL (0.55-1.30); POTASSIUM 3.7 MMOL/L (3.5-5.1); SODIUM 137 MMOL/L (136-145)
[2018-10-18 07:56] VITALS: BP 120/56
[2018-10-18] MEDS: Oxybutynin 5mg tab ORAL SCH ×2 (09:00→11:01)
[2018-10-18] MEDS: Donepezil 5mg Tab ORAL SCH (09:12)
[2018-10-18] MEDS: metFORMIN 500mg tab ORAL SCH ×2 (09:13→19:15)
[2018-10-18] MEDS: Losartan 50mg tab ORAL SCH (09:15)
[2018-10-18] MEDS: Heparin 5000 units/ml inj SUBQ SCH ×2 (09:17→20:41)
[2018-10-18] MEDS: cefTRIAXone 1 GM in D5W 55 ML IVPB SCH (12:18)
--- NOTE | 2018-10-18 14:42 | General Progress Note ---
Assessment/Plan Problem List: (1) Alzheimer disease ICD Codes: G30.9 - Alzheimer's disease, unspecified; F02.80 - Dementia in other diseases classified elsewhere without behavioral disturbance SNOMED: 79219243 (2) Diabetes ICD Codes: E11.9 - Type 2 diabetes mellitus without complications SNOMED: 61354839 (3) Pneumonia ICD Codes: J18.9 - Pneumonia, unspecified organism SNOMED: 753110758 Qualifiers: Qualified Codes: J18.1 - Lobar pneumonia, unspecified organism (4) Weakness ICD Codes: R53.1 - Weakness SNOMED: 02688896 Assessment/Plan continue antibiotics, hhn, mobilize, spiked to 101, repeat cxr Subjective Constitutional: Reports: weakness HEENT: Reports: no symptoms Cardiovascular: Reports: no symptoms Respiratory: Reports: cough Gastrointestinal/Abdominal: Reports: no symptoms Genitourinary: Reports: incontinence Neurologic/Psychiatric: Reports: pre-existing deficit Endocrine: Reports: no symptoms Allergies: Coded Allergies: ASPIRIN (Verified Allergy, Unknown, 07/29/18) HYDROMORPHONE (Verified Adverse Reaction, Severe, Hallucinations, 10/16/18) LORAZEPAM (Verified Adverse Reaction, Severe, Altered Mental Status, ) per Laureen matias, patient had afib MORPHINE (Verified Adverse Reaction, Severe, hallucinations, 10/16/18) Objective Last 24 Hour Vital Signs Date Time Temp Pulse Resp B/P (MAP) Pulse Ox O2 Delivery O2 Flow Rate FiO2 10/18/18 11:27 80 16 99 Nasal Cannula 2.0 10/18/18 11:14 75 14 97 Nasal Cannula 10/18/18 09:15 120/56 10/18/18 09:13 84 120/56 10/18/18 09:00 Room Air 10/18/18 08:05 84 16 99 Nasal Cannula 2.0 10/18/18 07:56 101.0 17 120/56 (77) 10/18/18 07:54 99 Nasal Cannula 2.0 10/18/18 07:54 86 16 99 Nasal Cannula 2.0 10/18/18 07:53 Nasal Cannula 2.0 10/18/18 04:00 99.5 93 20 122/54 (76) 99 10/18/18 03:45 95 18 99 Nasal Cannula 2.0 10/18/18 03:33 94 18 84 Room Air 21 10/18/18 00:04 99.5 10/18/18 00:00 85 18 98 Nasal Cannula 2.0 28 10/18/18 00:00 101.5 89 20 125/53 (77) 98 10/17/18 23:46 83 18 97 Nasal Cannula 2.0 28 10/17/18 21:00 Nasal Cannula 2.0 10/17/18 20:00 99.9 87 20 141/55 (83) 99 10/17/18 19:49 87 18 97 Nasal Cannula 2.0 28 10/17/18 19:39 Nasal Cannula 2.0 28 10/17/18 19:39 87 18 98 Nasal Cannula 2.0 28 10/17/18 19:39 98 Nasal Cannula 2.0 28 10/17/18 16:00 98.0 87 18 111/47 (68) 98 Intake and Output 10/17/18 10/18/18 19:00 07:00 Intake Total 960 ml 275 ml Balance 960 ml 275 ml Intake Oral 960 ml IV Total 275 ml # Voids 2 2 Laboratory Tests 10/18/18 06:51: White Blood Count 9.2, Red Blood Count 3.43L, Hemoglobin 10.0L, Hematocrit 31.1L , Mean Corpuscular Volume 91, Mean Corpuscular Hemoglobin 29.0, Mean Corpuscular Hemoglobin Concent 32.0, Red Cell Distribution Width 13.2, Platelet Count 269, Mean Platelet Volume 5.9L, Neutrophils (%) (Auto) 73.9, Lymphocytes ( %) (Auto) 14.0L, Monocytes (%) (Auto) 9.4, Eosinophils (%) (Auto) 1.3, Basophils (%) (Auto) 1.5, Sodium Level 137, Potassium Level 3.7, Chloride Level 101, Carbon Dioxide Level 30, Anion Gap 6, Blood Urea Nitrogen 15, Creatinine 0.9, Estimat Glomerular Filtration Rate , Glucose Level 240H, Calcium Level 8.2L Height (Feet): 5 Height (Inches): 3.00 Weight (Pounds): 185 General Appearance: no apparent distress, overweight EENT: normal ENT inspection Neck: normal alignment Cardiovascular: regular rhythm Respiratory/Chest: rhonchi - bilaterally Abdomen: non tender, soft Edema: no edema noted Arm (L), no edema noted Arm (R), no edema noted Leg (L), no edema noted Leg (R), no edema noted Pedal (L), no edema noted Pedal (R), no edema noted 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
--- NOTE | 2018-10-18 16:58 | Diagnostic Imaging Report ---
Indication: Cough, shortness of breath Technique: One view of the chest Comparison: 10/16/2018 Findings: Interim worsening of bilateral interstitial and airspace disease, left greater than right. There are probably small pleural effusions now present. There are degenerative changes of both shoulders. Impression: Over 2 days, interim worsening of bilateral left greater than right interstitial and airspace disease Suspect small pleural effusions, new or increased
[2018-10-18 20:20] VITALS: BP 127/69
[2018-10-18] MEDS: Atorvastatin 20mg tab ORAL SCH (20:37)
[2018-10-19] VITALS: BP 145/69
[2018-10-19] MEDS: Albuterol/Ipratropium 3ml neb HHN SCH ×6 (02:37→23:55)
[2018-10-19 04:00] VITALS: BP 113/52
[2018-10-19] MEDS: Azithromycin 250 MG in D5W 275 ML IV SCH (05:51)
[2018-10-19] MEDS: NovoLOG Insulin Flexpen SUBQ SCH ×5 (06:05→21:09)
[2018-10-19 08:00] VITALS: BP 121/54
[2018-10-19 08:30] LABS: EOSINOPHILS % (AUTO) 1.3 % (0.0-3.0); HEMATOCRIT 37.7 % (37.0-47.0); HEMOGLOBIN 12.1 G/DL (12.0-16.0); MEAN CORPUSCULAR VOLUME 90 FL (80-99); MONOCYTES % (AUTO) 9.4 % (1.0-10.0); NEUTROPHILS % (AUTO) 76.3 % (45.0-75.0); PLATELET COUNT 299 K/UL (150-450); RED BLOOD COUNT 4.17 M/UL (4.20-5.40); RED CELL DISTRIBUTION WIDTH 13.3 % (11.6-14.8); WHITE BLOOD COUNT 7.5 K/UL (4.8-10.8)
[2018-10-19 08:43] LABS: ANION GAP 6 mmol/L (5-15); BLOOD UREA NITROGEN 13 mg/dL (7-18); CALCIUM 8.7 MG/DL (8.5-10.1); CARBON DIOXIDE 25 MMOL/L (21-32); CHLORIDE 101 MMOL/L (98-107); CREATININE 0.7 MG/DL (0.55-1.30); POTASSIUM 4.2 MMOL/L (3.5-5.1); SODIUM 132 MMOL/L (136-145)
[2018-10-19] MEDS: Oxybutynin 5mg tab ORAL SCH (09:15)
[2018-10-19] MEDS: metFORMIN 500mg tab ORAL SCH ×2 (09:16→18:00)
[2018-10-19] MEDS: Losartan 50mg tab ORAL SCH (09:16)
[2018-10-19] MEDS: Donepezil 5mg Tab ORAL SCH (09:16)
[2018-10-19] MEDS: Heparin 5000 units/ml inj SUBQ SCH ×2 (09:18→20:58)
[2018-10-19 12:00] VITALS: BP 123/51
[2018-10-19] MEDS: cefTRIAXone 1 GM in D5W 55 ML IVPB SCH (13:10)
--- NOTE | 2018-10-19 13:14 | General Progress Note ---
Assessment/Plan Problem List: (1) Alzheimer disease ICD Codes: G30.9 - Alzheimer's disease, unspecified; F02.80 - Dementia in other diseases classified elsewhere without behavioral disturbance SNOMED: 94831396 (2) Diabetes ICD Codes: E11.9 - Type 2 diabetes mellitus without complications SNOMED: 90005080 (3) Pneumonia ICD Codes: J18.9 - Pneumonia, unspecified organism SNOMED: 985859180 Qualifiers: Qualified Codes: J18.1 - Lobar pneumonia, unspecified organism (4) Weakness ICD Codes: R53.1 - Weakness SNOMED: 88345568 Assessment/Plan continue antibiotics, hhn, mobilize, spiked to 101+100.1 , repeat cxr worse infiltrates Subjective Constitutional: Reports: weakness HEENT: Reports: no symptoms Cardiovascular: Reports: no symptoms Respiratory: Reports: cough Gastrointestinal/Abdominal: Reports: no symptoms Genitourinary: Reports: incontinence Neurologic/Psychiatric: Reports: pre-existing deficit Endocrine: Reports: no symptoms Allergies: Coded Allergies: ASPIRIN (Verified Allergy, Unknown, 07/29/18) HYDROMORPHONE (Verified Adverse Reaction, Severe, Hallucinations, 10/16/18) LORAZEPAM (Verified Adverse Reaction, Severe, Altered Mental Status, ) per Laureen matias, patient had afib MORPHINE (Verified Adverse Reaction, Severe, hallucinations, 10/16/18) Objective Last 24 Hour Vital Signs Date Time Temp Pulse Resp B/P (MAP) Pulse Ox O2 Delivery O2 Flow Rate FiO2 10/19/18 12:00 99.0 91 18 123/51 (75) 97 10/19/18 11:40 80 18 98 Nasal Cannula 2.0 28 10/19/18 11:33 77 20 95 Nasal Cannula 2.0 28 10/19/18 09:16 121/54 10/19/18 09:16 86 121/54 10/19/18 09:00 Nasal Cannula 2.0 10/19/18 08:00 100.1 86 18 121/54 (76) 100 10/19/18 07:58 78 20 98 Nasal Cannula 2.0 28 10/19/18 07:48 Nasal Cannula 2.0 10/19/18 07:48 90 Room Air 21 10/19/18 07:48 74 20 90 Room Air 21 10/19/18 04:00 97.7 95 18 113/52 (72) 96 10/19/18 02:45 92 20 99 Nasal Cannula 2.0 28 10/19/18 02:35 91 20 99 Nasal Cannula 2.0 10/19/18 00:00 100.3 95 19 145/69 (94) 97 10/18/18 23:21 97 20 99 Nasal Cannula 2.0 28 10/18/18 23:07 83 20 99 Nasal Cannula 2.0 10/18/18 21:00 Nasal Cannula 2.0 10/18/18 20:30 85 20 98 Nasal Cannula 2.0 28 10/18/18 20:20 99.4 86 18 127/69 (88) 95 10/18/18 20:16 85 20 97 Nasal Cannula 2.0 10/18/18 20:15 Nasal Cannula 2.0 28 10/18/18 20:15 97 Nasal Cannula 2.0 28 10/18/18 16:00 77 16 99 Nasal Cannula 2.0 28 10/18/18 15:50 79 16 98 Nasal Cannula 2.0 Intake and Output 10/18/18 10/19/18 19:00 07:00 Intake Total 375 ml 300 ml Balance 375 ml 300 ml Intake Oral 300 ml IV Total 55 ml Other 320 ml # Voids 2 # Bowel Movements 1 1 Laboratory Tests 10/19/18 08:13: White Blood Count 7.5, Red Blood Count 4.17L, Hemoglobin 12.1, Hematocrit 37.7, Mean Corpuscular Volume 90, Mean Corpuscular Hemoglobin 28.9, Mean Corpuscular Hemoglobin Concent 32.0, Red Cell Distribution Width 13.3, Platelet Count 299, Mean Platelet Volume 6.5, Neutrophils (%) (Auto) 76.3H, Lymphocytes (%) (Auto) 12.0L, Monocytes (%) (Auto) 9.4, Eosinophils (%) (Auto) 1.3, Basophils (%) (Auto ) 1.0, Sodium Level 132L, Potassium Level 4.2, Chloride Level 101, Carbon Dioxide Level 25, Anion Gap 6, Blood Urea Nitrogen 13, Creatinine 0.7, Estimat Glomerular Filtration Rate , Glucose Level 210H, Calcium Level 8.7 Height (Feet): 5 Height (Inches): 3.00 Weight (Pounds): 185 General Appearance: no apparent distress, obese EENT: normal ENT inspection Neck: normal alignment Cardiovascular: regular rhythm Respiratory/Chest: rhonchi - bilaterally Edema: no edema noted Arm (L), no edema noted Arm (R), no edema noted Leg (L), no edema noted Leg (R), no edema noted Pedal (L), no edema noted Pedal (R), no edema noted 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
[2018-10-19 15:57] VITALS: BP 123/58
[2018-10-19 20:00] VITALS: BP 123/52
[2018-10-19] MEDS: Atorvastatin 20mg tab ORAL SCH (20:57)
[2018-10-19] MEDS ORDERED: NS 275ml ONE (22:44)
[2018-10-20] VITALS: BP 125/60
[2018-10-20 04:00] VITALS: BP 140/60
[2018-10-20] MEDS: Albuterol/Ipratropium 3ml neb HHN SCH ×6 (04:04→23:11)
[2018-10-20] MEDS: Azithromycin 250 MG in D5W 275 ML IV SCH (06:16)
[2018-10-20] MEDS: NovoLOG Insulin Flexpen SUBQ SCH ×4 (06:31→20:52)
[2018-10-20 08:00] VITALS: BP 119/56
[2018-10-20] MEDS: Heparin 5000 units/ml inj SUBQ SCH ×2 (08:33→20:52)
[2018-10-20] MEDS: metFORMIN 500mg tab ORAL SCH ×2 (08:33→17:30)
[2018-10-20] MEDS: Oxybutynin 5mg tab ORAL SCH (08:33)
[2018-10-20] MEDS: Donepezil 5mg Tab ORAL SCH (08:33)
[2018-10-20] MEDS: Losartan 50mg tab ORAL SCH (08:34)
[2018-10-20] MEDS: cefTRIAXone 1 GM in D5W 55 ML IVPB SCH (11:44)
[2018-10-20 12:00] VITALS: BP 117/66
[2018-10-20 16:00] VITALS: BP 113/46
[2018-10-20] MEDS ORDERED: DOXYCYCLINE HY100 M2 PO (17:23)
--- NOTE | 2018-10-20 17:29 | General Progress Note ---
Assessment/Plan Problem List: (1) Alzheimer disease ICD Codes: G30.9 - Alzheimer's disease, unspecified; F02.80 - Dementia in other diseases classified elsewhere without behavioral disturbance SNOMED: 21984050 (2) Diabetes ICD Codes: E11.9 - Type 2 diabetes mellitus without complications SNOMED: 67767827 (3) Pneumonia ICD Codes: J18.9 - Pneumonia, unspecified organism SNOMED: 033478670 Qualifiers: Qualified Codes: J18.1 - Lobar pneumonia, unspecified organism (4) Weakness ICD Codes: R53.1 - Weakness SNOMED: 83550895 Assessment/Plan continue antibiotics, hhn, mobilize, spiked to 101+100.1 , repeat cxr worse infiltrates, desat to 88 off O2, family requests home oxygen Subjective Constitutional: Reports: weakness HEENT: Reports: no symptoms Cardiovascular: Reports: no symptoms Respiratory: Reports: cough, shortness of breath Gastrointestinal/Abdominal: Reports: no symptoms Genitourinary: Reports: incontinence Neurologic/Psychiatric: Reports: pre-existing deficit Endocrine: Reports: no symptoms Hematologic/Lymphatic: Reports: no symptoms Allergies: Coded Allergies: ASPIRIN (Verified Allergy, Unknown, 07/29/18) HYDROMORPHONE (Verified Adverse Reaction, Severe, Hallucinations, 10/16/18) LORAZEPAM (Verified Adverse Reaction, Severe, Altered Mental Status, ) per Laureen matias, patient had afib MORPHINE (Verified Adverse Reaction, Severe, hallucinations, 10/16/18) Objective Last 24 Hour Vital Signs Date Time Temp Pulse Resp B/P (MAP) Pulse Ox O2 Delivery O2 Flow Rate FiO2 10/20/18 16:40 88 14 99 Nasal Cannula 2.0 28 10/20/18 16:30 85 14 89 Nasal Cannula 2.0 28 10/20/18 16:00 98.5 86 17 113/46 (68) 100 10/20/18 12:00 98.1 85 16 117/66 (83) 100 10/20/18 11:08 88 12 100 Nasal Cannula 2.0 28 10/20/18 10:55 83 12 98 Nasal Cannula 2.0 28 10/20/18 09:00 Nasal Cannula 2.0 10/20/18 08:34 128/60 10/20/18 08:33 80 128/60 10/20/18 08:00 97.7 83 18 119/56 (77) 98 10/20/18 07:31 82 12 100 Nasal Cannula 2.0 28 10/20/18 07:22 82 12 97 Nasal Cannula 2.0 28 10/20/18 07:22 Nasal Cannula 2.0 28 10/20/18 07:22 97 Nasal Cannula 2.0 28 10/20/18 04:05 77 18 97 Nasal Cannula 2.0 28 10/20/18 04:00 99.4 94 18 140/60 (86) 98 10/20/18 03:55 76 18 96 Nasal Cannula 2.0 28 10/20/18 00:00 98.0 80 18 125/60 (81) 98 10/19/18 23:55 78 18 98 Nasal Cannula 2.0 28 10/19/18 23:45 74 18 95 Nasal Cannula 2.0 28 10/19/18 21:00 Nasal Cannula 2.0 10/19/18 20:00 98.2 86 18 123/52 (75) 97 10/19/18 20:00 80 18 97 Nasal Cannula 2.0 28 10/19/18 19:50 Nasal Cannula 2.0 28 10/19/18 19:50 96 Nasal Cannula 2.0 28 10/19/18 19:50 78 18 93 Nasal Cannula 2.0 28 Intake and Output 10/19/18 10/20/18 19:00 07:00 Intake Total 495 ml 400 ml Balance 495 ml 400 ml Intake Oral 440 ml 400 ml IV Total 55 ml # Voids 2 3 Height (Feet): 5 Height (Inches): 3.00 Weight (Pounds): 185 General Appearance: no apparent distress EENT: normal ENT inspection Neck: normal alignment Cardiovascular: normal rate, regular rhythm Respiratory/Chest: rhonchi - bilaterally Abdomen: soft, no organomegaly Edema: no edema noted Arm (L), no edema noted Arm (R), no edema noted Leg (L), no edema noted Leg (R), no edema noted Pedal (L), no edema noted Pedal (R), no edema noted Generalized Jed Stoddard MD Oct 20, 2018 17:29
[2018-10-20 20:00] VITALS: BP 127/71
[2018-10-20] MEDS: Atorvastatin 20mg tab ORAL SCH (20:48)
[2018-10-21 00:07] VITALS: BP 133/68
[2018-10-21] MEDS: Albuterol/Ipratropium 3ml neb HHN SCH ×2 (03:17→08:46)
[2018-10-21 04:40] VITALS: BP 134/78
[2018-10-21] MEDS: Azithromycin 250 MG in D5W 275 ML IV SCH (06:24)
[2018-10-21] MEDS: NovoLOG Insulin Flexpen SUBQ SCH ×4 (06:31→20:59)
[2018-10-21 08:00] VITALS: BP 135/82
[2018-10-21] MEDS: Heparin 5000 units/ml inj SUBQ SCH ×2 (09:00→20:53)
[2018-10-21] MEDS ORDERED: NS 275ml ONE (10:48)
[2018-10-21] MEDS: Losartan 50mg tab ORAL SCH (10:48)
[2018-10-21] MEDS: Oxybutynin 5mg tab ORAL SCH (10:49)
[2018-10-21] MEDS: metFORMIN 500mg tab ORAL SCH ×2 (10:49→18:00)
[2018-10-21] MEDS: Donepezil 5mg Tab ORAL SCH (10:49)
[2018-10-21 12:00] VITALS: BP 123/59
[2018-10-21] MEDS: cefTRIAXone 1 GM in D5W 55 ML IVPB SCH (13:58)
[2018-10-21 16:00] VITALS: BP 123/56
[2018-10-21 20:00] VITALS: BP 105/50
[2018-10-21] MEDS: Atorvastatin 20mg tab ORAL SCH (20:52)
--- NOTE | 2018-10-22 04:00 | Discharge Summary ---
DATE OF ADMISSION: 10/16/2018 DATE OF DISCHARGE: 10/21/2018 PERTINENT HISTORY: The patient is an 83-year-old lady has Alzheimer's, hypertension, and diabetes. She presents with cough, weakness, fever, and abnormal urinalysis. PERTINENT PHYSICAL FINDINGS: LUNGS: A few faint rhonchi. HEART: Regular rhythm. ABDOMEN: Soft without organomegaly. EXTREMITIES: No edema. NEUROLOGIC: She is alert and disoriented. No focal findings. COURSE IN THE HOSPITAL: The patient had pulmonary infiltrates consistent with community-acquired pneumonia and she was given Rocephin and azithromycin. Urine culture showed mixed gram positive organisms likely contaminant. The patient had mild bronchospasm, received HHN. She has fever spikes intermittently. Blood cultures were negative. Influenza was negative. She did desaturate off oxygen and family requested home oxygen. On the day of discharge, her vital signs are stable. Lungs showed faint rhonchi. Heart, regular rhythm. Abdomen, soft. Extremities, no edema and she was discharged home in improved condition. FINAL DIAGNOSES: 1. Community-acquired pneumonia. 2. Alzheimer's. 3. Adult onset diabetes. 4. Hypertension. 5. Urinary incontinence. 6. Abnormal UA with negative urine culture. 7. COPD with a history of prior cigarette smoking. 8. Gait disorder. DISCHARGE DISPOSITION: Home on a regular diet. MEDICATIONS: Per the discharge medication list which include her home medications plus doxycycline 100 mg b.i.d. for 10 days and hand-held nebulizer with albuterol 2.5 mg q.4 h. p.r.n. FOLLOWUP: Follow up with her primary doctor who is not on staff in this hospital. Jed Stoddard M.D. DR: EBONY JOB#: [id number] CC:
[2018-10-22] MEDS: NovoLOG Insulin Flexpen SUBQ SCH ×3 (06:00→16:42)
[2018-10-22] MEDS: Azithromycin 250 MG in D5W 275 ML IV SCH (06:13)
[2018-10-22 08:00] VITALS: BP 111/55
--- NOTE | 2018-10-22 08:05 | General Progress Note ---
Assessment/Plan Problem List: (1) Alzheimer disease ICD Codes: G30.9 - Alzheimer's disease, unspecified; F02.80 - Dementia in other diseases classified elsewhere without behavioral disturbance SNOMED: 84437597 (2) Diabetes ICD Codes: E11.9 - Type 2 diabetes mellitus without complications SNOMED: 21565858 (3) Pneumonia ICD Codes: J18.9 - Pneumonia, unspecified organism SNOMED: 491169814 Qualifiers: Qualified Codes: J18.1 - Lobar pneumonia, unspecified organism (4) Weakness ICD Codes: R53.1 - Weakness SNOMED: 30944665 Assessment/Plan continue antibiotics, hhn, mobilize, spiked to 101+100.1 , repeat cxr worse infiltrates, desat to 88 off O2, family requests home oxygen--seen 10/21 and dc delayed awaiting oxygen, cm to see plan dc 10/22 overall improved cough, afebrile Subjective Constitutional: Reports: weakness HEENT: Reports: no symptoms Cardiovascular: Reports: no symptoms Respiratory: Reports: cough Gastrointestinal/Abdominal: Reports: no symptoms, diarrhea Genitourinary: Reports: incontinence Neurologic/Psychiatric: Reports: pre-existing deficit Endocrine: Reports: no symptoms Hematologic/Lymphatic: Reports: no symptoms Allergies: Coded Allergies: ASPIRIN (Verified Allergy, Unknown, 07/29/18) HYDROMORPHONE (Verified Adverse Reaction, Severe, Hallucinations, 10/16/18) LORAZEPAM (Verified Adverse Reaction, Severe, Altered Mental Status, ) per Laureen matias, patient had afib MORPHINE (Verified Adverse Reaction, Severe, hallucinations, 10/16/18) Objective Last 24 Hour Vital Signs Date Time Temp Pulse Resp B/P (MAP) Pulse Ox O2 Delivery O2 Flow Rate FiO2 10/21/18 21:00 Nasal Cannula 2.0 10/21/18 20:00 97.7 83 19 105/50 (68) 99 10/21/18 16:00 98.2 74 18 123/56 (78) 10/21/18 12:00 98.4 94 20 123/59 (80) 99 10/21/18 11:43 Nasal Cannula 2.0 28 10/21/18 11:42 Nasal Cannula 2.0 28 10/21/18 10:50 82 131/72 10/21/18 10:48 131/72 10/21/18 09:00 Nasal Cannula 2.0 10/21/18 08:57 78 18 98 Nasal Cannula 2.0 28 10/21/18 08:45 98 Nasal Cannula 2.0 28 10/21/18 08:45 Nasal Cannula 2.0 28 10/21/18 08:45 78 16 97 Nasal Cannula 2.0 28 Intake and Output 10/21/18 10/22/18 19:00 07:00 Intake Total 905 ml 220 ml Output Total 551 ml Balance 905 ml -331 ml Intake Oral 905 ml 220 ml Output Urine Total 551 ml # Voids 2 1 # Bowel Movements 2 2 Height (Feet): 5 Height (Inches): 3.00 Weight (Pounds): 185 General Appearance: no apparent distress, alert EENT: normal ENT inspection Neck: normal alignment Cardiovascular: normal rate Respiratory/Chest: lungs clear Abdomen: non tender, soft Edema: no edema noted Arm (L), no edema noted Arm (R), no edema noted Leg (L), no edema noted Leg (R), no edema noted Pedal (L), no edema noted Pedal (R), no edema noted 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
[2018-10-22] MEDS: Oxybutynin 5mg tab ORAL SCH (09:09)
[2018-10-22] MEDS: Donepezil 5mg Tab ORAL SCH (09:09)
[2018-10-22] MEDS: metFORMIN 500mg tab ORAL SCH (09:10)
[2018-10-22] MEDS: Losartan 50mg tab ORAL SCH (09:10)
[2018-10-22] MEDS: Heparin 5000 units/ml inj SUBQ SCH (09:12)
[2018-10-22 11:59] VITALS: BP 128/81
[2018-10-22] MEDS: cefTRIAXone 1 GM in D5W 55 ML IVPB SCH (12:00)
[2018-10-22 16:13] VITALS: BP 106/55
[2018-10-22] MEDS ORDERED: Tubing IV Secondary IV ONE (16:59)
[2018-10-22] MEDS ORDERED: NS 500ML ONE (16:59)
== END 2018-10-22 17:00 | disposition home health service (06) | DRG 195 ==
LOC: EMR 02:50 → 4E 05:30 → EDBEDREQ 05:48 → 3E 10-17 16:49
DX: J18.9 Pneumonia, unspecified organism (principal); I10 Essential (primary) hypertension; E11.9 Type 2 diabetes mellitus without complications; G30.9 Alzheimer's disease, unspecified; F02.80 Dementia in other diseases classified elsewhere, unspecified severity, without behavioral disturbance, psychotic disturbance, mood disturbance, and anxiety; R32 Unspecified urinary incontinence; J44.9 Chronic obstructive pulmonary disease, unspecified; Z87.891 Personal history of nicotine dependence; R26.9 Unspecified abnormalities of gait and mobility; Z88.6 Allergy status to analgesic agent; Z88.8 Allergy status to other drugs, medicaments and biological substances; R53.1 Weakness
CPT/HCPCS: 36415; 71045; 80048; 80053; 81003; 82962; 83605; 85025; 86710; 87040; 87086; 87324; 94640; 94760; 96361; 96365; 96366; 96367; 99285; J1815; J7620

== ENCOUNTER 2020-09-11 16:49 | Inpatient (IN) | payer MEDICARE, OTHER ==
[~2020-09-11] VITALS: Ht 162.6 cm; Wt 81.6 kg
[~2020-09-11 16:49] MED LIST: ARICEPT5 MG ORAL; ASPIR 8181 MG ORAL; DITROPAN XL5 MG ORAL; DOXYCYCLINE HY100 M2 PO; LOSARTAN POTAS100 MG ORAL; LOVASTATIN40 MG ORAL; METFORMIN HCL500 M1 ORAL; MUCINEX COLD-F177 M1 PO; MULTIVITAMINS1 EAC2 ORAL; NEURONTIN300 MG ORAL; NORVASC2.5 MG ORAL; TYLENOL EXTRA500 MG ORAL
[2020-09-11 17:00] VITALS: BP 89/54
[2020-09-11] MEDS ORDERED: Omnipaque-300 100ml vial INJ PRN (18:15)
[2020-09-11 18:16] LABS: BASOPHILS % (AUTO) 1.5 % (0.0-2.0); HEMATOCRIT 41.2 % (37.0-47.0); HEMOGLOBIN 12.8 G/DL (12.0-16.0); LYMPHOCYTES % (AUTO) 24.7 % (20.0-45.0); MEAN CORPUSCULAR VOLUME 98 FL (80-99); MONOCYTES % (AUTO) 12.7 % (1.0-10.0); NEUTROPHILS % (AUTO) 59.1 % (45.0-75.0); PLATELET COUNT 266 K/UL (150-450); RED CELL DISTRIBUTION WIDTH 15.3 % (11.6-14.8); WHITE BLOOD COUNT 7.9 K/UL (4.8-10.8)
[2020-09-11 18:27] LABS: INR 1.1 (0.9-1.1)
[2020-09-11 18:39] LABS: ALBUMIN 2.7 G/DL (3.4-5.0); ALBUMIN/GLOBULIN RATIO 0.9 (1.0-2.7); BILIRUBIN,TOTAL 0.3 MG/DL (0.2-1.0); CREATININE 1.1 MG/DL (0.55-1.30); POTASSIUM 3.7 MMOL/L (3.5-5.1)
--- NOTE | 2020-09-11 18:51 | Diagnostic Imaging Report ---
EXAM: CT Head Without Intravenous Contrast CLINICAL HISTORY: DIZZY TECHNIQUE: Axial computed tomography images of the head/brain without intravenous contrast. CTDI is 53.4 mGy and DLP is 882.4 mGy-cm. One or more of the following dose reduction techniques were used: automated exposure control, adjustment of the mA and/or kV according to patient size, use of iterative reconstruction technique. COMPARISON: No relevant prior studies available. FINDINGS: Brain: No acute infarct, hemorrhage, mass or edema. Chronic small vessel ischemic disease and senescent changes. Ventricles: Unremarkable. No ventriculomegaly. Bones/joints: Unremarkable. No acute calvarial fracture. Soft tissues: Unremarkable. Sinuses: Minimal mucosal thickening of the paranasal sinuses. Mastoid air cells: Unremarkable as visualized. IMPRESSION: No acute infarct, hemorrhage, mass or edema.
[2020-09-11 19:00] VITALS: BP 96/46
--- NOTE | 2020-09-11 19:25 | Diagnostic Imaging Report ---
EXAM: CT Abdomen and Pelvis With Intravenous Contrast CLINICAL HISTORY: DIZZY TECHNIQUE: Axial computed tomography images of the abdomen and pelvis with intravenous contrast. CTDI is 11.60 mGy and DLP is 628.60 mGy-cm. One or more of the following dose reduction techniques were used: automated exposure control, adjustment of the mA and/or kV according to patient size, use of iterative reconstruction technique. COMPARISON: No relevant prior studies available. FINDINGS: Lung bases: Reticular and groundglass opacities within the lingula and bilateral lower lobes which may represent atelectasis versus an infectious process. Pleural space: Trace left pleural effusion with pleural calcification. ABDOMEN: Liver: Unremarkable. Gallbladder and bile ducts: Gallbladder is distended. Pancreas: Unremarkable. Spleen: Unremarkable. Adrenals: Unremarkable. Kidneys and ureters: Cyst within both kidneys. Stomach and bowel: Mild wall thickening of the descending colon and sigmoid colon which may resent nonspecific colitis. PELVIS: Appendix: Appendix is nonvisualized. Bladder: Unremarkable. Reproductive: Uterus is surgically absent. ABDOMEN and PELVIS: Intraperitoneal space: Unremarkable. Bones/joints: No acute fracture. No dislocation. Soft tissues: Unremarkable. Vasculature: Vascular calcifications. Lymph nodes: Unremarkable. IMPRESSION: 1. Reticular and groundglass opacities within the lingula and bilateral lower lobes which may represent atelectasis versus an infectious process. 2. Trace left pleural effusion with pleural calcification. 3. Mild wall thickening of the descending colon and sigmoid colon which may resent nonspecific colitis.
[2020-09-11] MEDS ORDERED: Piperacillin/Tazobactam 3.375 GM in NS 110 ML IVPB ONE (19:30)
[2020-09-11 19:37] VITALS: BP 101/43
[2020-09-11 19:37] LABS: APPEARANCE,URINE CLEAR; BILIRUBIN, URINE NEGATIVE (NEGATIVE); COLOR,URINE AMBER; GLUCOSE, URINE (UA) NEGATIVE (NEGATIVE); KETONES,URINE NEGATIVE (NEGATIVE); LEUKOCYTE ESTERASE ,URINE 1+ (NEGATIVE); NITRITE,URINE NEGATIVE (NEGATIVE); PH,URINE 5 (4.5-8.0); PROTEIN,URINE 2+ (NEGATIVE); UROBILINOGEN,URINE 1 MG/DL (0.0-1.0)
--- NOTE | 2020-09-11 19:46 | Emergency Room Report ---
History of Present Illness General Chief Complaint: Diarrhea Source: Patient, Medical Record Present Illness HPI Patient is an 85-year-old female who presents for increased diarrhea and generalized weakness. Prior history of CHF. Has been noted to have alternating episodes of constipation and diarrhea. Reportedly had never had a colonoscopy in the past. Prior history of atrial fibrillation. Patient had been started on Eliquis as well as diuretic. Patient had been cared for by her daughter and lives at home. Allergies: Coded Allergies: ASPIRIN (Verified Allergy, Unknown, 07/29/18) HYDROMORPHONE (Verified Adverse Reaction, Severe, Hallucinations, 10/16/18) LORAZEPAM (Verified Adverse Reaction, Severe, Altered Mental Status, 10/16/18) per Laureen matias, patient had afib MORPHINE (Verified Adverse Reaction, Severe, hallucinations, 10/16/18) COVID-19 Screening Contact w/high risk pt: No Experienced COVID-19 symptoms?: Yes COVID-19 Testing performed CELEBRITY MANAGER: No Patient History Past Medical History: see triage record, CHF, AFib, dementia Reviewed Nursing Documentation: PMH: Agreed; PSxH: Agreed Nursing Documentation-PMH Past Medical History: No History, Except For Hx Cardiac Problems: Yes Hx Hypertension: Yes Hx Diabetes: Yes Hx Cancer: No Hx Gastrointestinal Problems: No Hx Neurological Problems: Yes - Dementia Review of Systems All Other Systems: limited - Limited by poor historian. Physical Exam Vital Signs Date Time Temp Pulse Resp B/P (MAP) Pulse Ox O2 Delivery O2 Flow Rate FiO2 09/11/20 17:00 89 18 89/54 100 Room Air 09/11/20 17:14 98.2 09/11/20 19:37 2.0 General Appearance: alert, Chronically Ill Respiratory: chest non-tender, lungs clear Cardiovascular #1: irregularly irregular Gastrointestinal: soft, distended Musculoskeletal: decreased range of motion Neurologic: alert Skin: no rash Medical Decision Making Diagnostic Impression: Primary Impression: Alzheimer disease Additional Impressions: Colitis Suspected 2018-nCoV infection Pleural effusion Elevated troponin ER Course Patient presented for increased weakness and diarrhea. Differential diagnosis include was not limited to bowel obstruction, colitis, ischemic bowel among others. Because of complexity of patient's case laboratory tests and imaging studies were ordered. Patient is noted to have some progressive dementia. Had no recent trauma. Per patient's daughter she been having increased diarrhea recently. CT imaging read by radiology showed mild wall thickening of the descending colon which represents a nonspecific colitis laboratory testing was notable for elevated lactic acid level as well as a mildly elevated troponin. Patient was noted on IV fluids as well as IV antibiotics. Per discussion with the patient's daughter patient is not to be resuscitated but is okay to have IV fluids as well as medications and minor procedures. Patient was discussed with physician from [facility] who authorized admission to the hospital for further work-up. Dr. Rodney Bowman was contacted for inpatient management due to capitated physician Labs Test 09/11/20 17:45 09/11/20 19:08 09/11/20 19:21 White Blood Count 7.9 K/UL (4.8-10.8) Red Blood Count 4.20 M/UL (4.20-5.40) Hemoglobin 12.8 G/DL (12.0-16.0) Hematocrit 41.2 % (37.0-47.0) Mean Corpuscular Volume 98 FL (80-99) Mean Corpuscular Hemoglobin 30.5 PG (27.0-31.0) Mean Corpuscular Hemoglobin Concent 31.1 G/DL (32.0-36.0) Red Cell Distribution Width 15.3 % (11.6-14.8) Platelet Count 266 K/UL (150-450) Mean Platelet Volume 7.2 FL (6.5-10.1) Neutrophils (%) (Auto) 59.1 % (45.0-75.0) Lymphocytes (%) (Auto) 24.7 % (20.0-45.0) Monocytes (%) (Auto) 12.7 % (1.0-10.0) Eosinophils (%) (Auto) 2.0 % (0.0-3.0) Basophils (%) (Auto) 1.5 % (0.0-2.0) Prothrombin Time 11.6 SEC (9.30-11.50) Prothromb Time International Ratio 1.1 (0.9-1.1) Activated Partial Thromboplast Time 32 SEC (23-33) D-Dimer 0.86 mg/L FEU (0.00-0.49) Sodium Level 142 MMOL/L (136-145) Potassium Level 3.7 MMOL/L (3.5-5.1) Chloride Level 106 MMOL/L (98-107) Carbon Dioxide Level 31 MMOL/L (21-32) Anion Gap 5 mmol/L (5-15) Blood Urea Nitrogen 19 mg/dL (7-18) Creatinine 1.1 MG/DL (0.55-1.30) Estimat Glomerular Filtration Rate 57.1 mL/min (>60) Glucose Level 112 MG/DL (74-106) Calcium Level 8.0 MG/DL (8.5-10.1) Ferritin 93 NG/ML (8-388) Total Bilirubin 0.3 MG/DL (0.2-1.0) Aspartate Amino Transf (AST/SGOT) 22 U/L (15-37) Alanine Aminotransferase (ALT/SGPT) 15 U/L (12-78) Alkaline Phosphatase 68 U/L (46-116) Lactate Dehydrogenase 195 U/L (81-234) Total Creatine Kinase 98 U/L (26-308) Creatine Kinase MB 1.0 NG/ML (0.0-3.6) Creatine Kinase MB Relative Index 1.0 Troponin I 0.173 ng/mL (0.000-0.056) C-Reactive Protein, Quantitative 25.8 mg/dL (0.00-0.90) Total Protein 5.6 G/DL (6.4-8.2) Albumin 2.7 G/DL (3.4-5.0) Globulin 2.9 g/dL Albumin/Globulin Ratio 0.9 (1.0-2.7) Urine Color July Urine Appearance Clear Urine pH 5 (4.5-8.0) Urine Specific [place] 1.010 (1.005-1.035) Urine Protein 2+ (NEGATIVE) Urine Glucose (UA) Negative (NEGATIVE) Urine Ketones Negative (NEGATIVE) Urine Blood 3+ (NEGATIVE) Urine Nitrite Negative (NEGATIVE) Urine Bilirubin Negative (NEGATIVE) Urine Urobilinogen 1 MG/DL (0.0-1.0) Urine Leukocyte Esterase 1+ (NEGATIVE) EKG Diagnostic Results Rate: other - Nonspecific ST changes atrial fibrillation rate of 61 ST Segments: no acute changes ASA given to the pt in ED: No - Aspirin allergy patient took her Eliquis this morning Last Vital Signs Date Time Temp Pulse Resp B/P (MAP) Pulse Ox O2 Delivery O2 Flow Rate FiO2 09/11/20 19:37 64 101/43 96 Nasal Cannula 2.0 09/11/20 19:00 17 09/11/20 17:14 98.2 Status: improved Disposition: ADMITTED INPATIENT Condition: Stable Referrals: [facility],REFERRING (PCP) Doroteo Small MD Sep 11, 2020 19:46
[2020-09-11] MEDS ORDERED: ELIQUIS2.5 MG ORAL (20:20)
[2020-09-11 20:45] VITALS: BP 108/51
[2020-09-12] VITALS: BP 127/59
[2020-09-12] MEDS ORDERED: Acetaminophen 500mg (ES) tab ORAL PRN (01:00)
[2020-09-12] MEDS: Piperacillin/Tazobactam 3.375 GM in NS 110 ML IVPB SCH ×3 (02:43→17:51)
[2020-09-12 04:00] VITALS: BP 109/74
[2020-09-12] MEDS: NovoLOG Insulin Flexpen SUBQ SCH ×4 (05:56→20:42)
[2020-09-12] MEDS ORDERED: Vancomycin 1gm/D5W 275ml IVPB ONE ×2 (06:00)
[2020-09-12 08:02] VITALS: BP 130/51
[2020-09-12] MEDS: Donepezil 5mg Tab ORAL SCH (09:35)
[2020-09-12] MEDS: Losartan 50mg tab ORAL SCH (09:36)
[2020-09-12] MEDS: Eliquis 2.5mg tablet ORAL SCH ×2 (09:36→17:46)
[2020-09-12] MEDS: Oxybutynin 5mg tab ORAL SCH (09:36)
[2020-09-12 12:10] VITALS: BP 134/48
[2020-09-12] MEDS ORDERED: Tubing IV Secondary IV ONE (13:46)
[2020-09-12 15:46] VITALS: BP 140/44
--- NOTE | 2020-09-12 16:33 | Diagnostic Imaging Report ---
Indication: Chest pain Technique: One view of the chest Comparison: 10/18/2018 Findings: There are bilateral left greater than right infiltrates, mostly peripheral. The heart is upper limits normal in size. Infiltrates are less extensive than those demonstrated previously. Impression: Bilateral infiltrates. Suspicious for bilateral pneumonia, could also indicate pulmonary edema
[2020-09-12 20:00] VITALS: BP 106/36
[2020-09-13] VITALS: BP 115/50
--- NOTE | 2020-09-13 00:15 | History and Physical Report ---
DATE OF ADMISSION: 09/11/2020 HISTORY OF PRESENT ILLNESS: This is an 85-year-old female, who presented to the emergency room. The patient is noted to be with generalized weakness and noted diarrhea. The patient with a history of CHF, noted to have constipation and diarrhea. X-rays with possible infiltrates. The patient is on Eliquis at home. She is admitted and placed on oxygen. The patient is unable to give much in the way of history. The patient's chart reviewed. The patient is Full Code. PAST MEDICAL HISTORY: Notable for congestive heart failure, atrial fibrillation, likely underlying dementia, hypertension, and diabetes. MEDICATIONS: Reviewed. ALLERGIES: Reviewed. SOCIAL HISTORY: The patient is currently retired. Nonsmoker and nondrinker. PHYSICAL EXAMINATION: GENERAL: The patient is currently on isolation and full exam is deferred. VITAL SIGNS: Blood pressure 144/96, pulse 63, respirations 18, saturation 99% on 2 liters. HEENT: Overall negative. NECK: Supple. No adenopathy. LUNGS: Moderate breath sounds. Some rhonchi. The patient otherwise appears to be nonfocal. LABORATORY DATA: Reviewed. DIAGNOSTIC DATA: CT scan with particular ground-glass changes, mild wall thickening in the descending colon. The CT of the head reviewed without any acute changes. Other laboratory data reviewed with elevated troponin. BUN 19. Lactic acid 2.1. Albumin is only 2.7. CBC fairly negative. IMPRESSION: 1. Abnormal x-ray, possibly due to underlying pulmonary edema versus atypical pneumonia. 2. History of diarrhea and constipation. 3. Possible sepsis. 4. Elevated troponin. 5. Possible non-STEMI. 6. Hypercholesterolemia. RECOMMENDATIONS: 1. Empiric antibiotics. 2. Hold any fluids for now. 3. ID and Cardiology to see. 4. Monitor clinically in telemetry. 5. Follow up for further changes. 6. Optimize care and recommend further and we will attempt to taper antibiotics as able. Rodney Bowman M.D. DR: ELIOT JOB#: [id number] CC:
[2020-09-13] MEDS: Piperacillin/Tazobactam 3.375 GM in NS 110 ML IVPB SCH ×3 (01:52→17:52)
[2020-09-13 04:00] VITALS: BP 125/36
[2020-09-13 04:38] LABS: BASOPHILS % (AUTO) 1.2 % (0.0-2.0); EOSINOPHILS % (AUTO) 1.5 % (0.0-3.0); HEMATOCRIT 34.3 % (37.0-47.0); MEAN CORPUSCULAR VOLUME 97 FL (80-99); MONOCYTES % (AUTO) 15.5 % (1.0-10.0); NEUTROPHILS % (AUTO) 54.8 % (45.0-75.0); PLATELET COUNT 246 K/UL (150-450); RED BLOOD COUNT 3.52 M/UL (4.20-5.40); RED CELL DISTRIBUTION WIDTH 15.4 % (11.6-14.8); WHITE BLOOD COUNT 6.4 K/UL (4.8-10.8)
[2020-09-13 04:58] LABS: ANION GAP 7 mmol/L (5-15); BLOOD UREA NITROGEN 12 mg/dL (7-18); CALCIUM 8.4 MG/DL (8.5-10.1); CARBON DIOXIDE 30 MMOL/L (21-32); CHLORIDE 110 MMOL/L (98-107); POTASSIUM 3.8 MMOL/L (3.5-5.1); SODIUM 146 MMOL/L (136-145)
[2020-09-13] MEDS ORDERED: Vancomycin 1gm/D5W 275ml IVPB SCH ×2 (06:00)
[2020-09-13] MEDS: metFORMIN 500mg tab ORAL SCH (06:27)
[2020-09-13] MEDS: NovoLOG Insulin Flexpen SUBQ SCH ×5 (06:30→21:00)
[2020-09-13 08:00] VITALS: BP 122/43
--- NOTE | 2020-09-13 08:57 | General Progress Note ---
Subjective Allergies: Coded Allergies: ASPIRIN (Verified Allergy, Unknown, 07/29/18) HYDROMORPHONE (Verified Adverse Reaction, Severe, Hallucinations, 10/16/18) LORAZEPAM (Verified Adverse Reaction, Severe, Altered Mental Status, 10/16/18) per Laureen matias, patient had afib MORPHINE (Verified Adverse Reaction, Severe, hallucinations, 10/16/18) Subjective care noted still on isolation Objective Last 24 Hour Vital Signs Date Time Temp Pulse Resp B/P (MAP) Pulse Ox O2 Delivery O2 Flow Rate FiO2 09/13/20 04:00 Nasal Cannula 2.0 09/13/20 04:00 98.6 65 18 125/36 (65) 98 09/13/20 04:00 71 09/13/20 04:00 2.0 09/13/20 00:00 Nasal Cannula 2.0 09/13/20 00:00 98.7 61 18 115/50 (71) 99 09/13/20 00:00 2.0 09/13/20 00:00 64 09/12/20 20:00 98.4 60 18 106/36 (59) 99 09/12/20 20:00 63 09/12/20 20:00 2.0 09/12/20 20:00 Nasal Cannula 2.0 09/12/20 16:00 2.0 09/12/20 16:00 Nasal Cannula 2.0 09/12/20 15:46 98.6 63 18 140/44 (76) 99 09/12/20 15:40 67 09/12/20 12:10 98.9 70 17 134/48 (76) 17 09/12/20 12:00 74 09/12/20 12:00 2.0 09/12/20 12:00 Nasal Cannula 2.0 09/12/20 09:37 76 130/51 09/12/20 09:36 130/51 Intake and Output 09/12/20 09/13/20 19:00 07:00 Intake Total 697.5 ml 196.1 ml Balance 697.5 ml 196.1 ml Intake Oral 360 ml IV Total 337.5 ml 196.1 ml # Voids 4 # Bowel Movements 4 6 Laboratory Tests 09/12/20 10:14: Troponin I 0.161H 09/12/20 12:11: POC Whole Blood Glucose 114H 09/12/20 17:28: POC Whole Blood Glucose 141H 09/12/20 18:00: Troponin I 0.214H 09/12/20 20:40: POC Whole Blood Glucose 123H 09/13/20 02:00: Troponin I 0.220H 09/13/20 03:55: White Blood Count 6.4, Red Blood Count 3.52L, Hemoglobin 11.0L, Hematocrit 34.3L , Mean Corpuscular Volume 97, Mean Corpuscular Hemoglobin 31.3H, Mean Cor puscular Hemoglobin Concent 32.1, Red Cell Distribution Width 15.4H, Platelet Count 246, Mean Platelet Volume 6.2L, Neutrophils (%) (Auto) 54.8, Lymphocytes (%) (Auto) 27.0, Monocytes (%) (Auto) 15.5H, Eosinophils (%) (Auto) 1.5, Basophils (%) (Auto) 1.2, Sodium Level 146H, Potassium Level 3.8, Chloride Level 110H, Carbon Dioxide Level 30, Anion Gap 7, Blood Urea Nitrogen 12, Creatinine 1.0, Estimat Glomerular Filtration Rate > 60, Glucose Level 140H, Calcium Level 8.4L, Random Vancomycin Level 3.1 09/13/20 06:33: POC Whole Blood Glucose [Pending] Height (Feet): 5 Height (Inches): 4.00 Weight (Pounds): 130 Objective deferred due to COVID pending Assessment/Plan Assessment/Plan: IMPRESSION: 1. Abnormal x-ray, possibly due to underlying pulmonary edema versus atypical pneumonia. 2. History of diarrhea and constipation. 3. Possible sepsis. 4. Elevated troponin. 5. Possible non-STEMI. 6. Hypercholesterolemia. RECOMMENDATIONS: 1. Empiric antibiotics and ID called 2. monitor troponins 3. ID and Cardiology to see. 4. Monitor clinically in telemetry. 5. Follow up for further changes. 6. Optimize care full code impression, plan, and exam edited and reviewed in detail care discussed with Rodney Liang MD Sep 13, 2020 08:56
[2020-09-13] MEDS: Donepezil 5mg Tab ORAL SCH (10:04)
[2020-09-13] MEDS: Losartan 50mg tab ORAL SCH (10:04)
[2020-09-13] MEDS: Eliquis 2.5mg tablet ORAL SCH (10:05)
[2020-09-13] MEDS: Oxybutynin 5mg tab ORAL SCH (10:05)
--- NOTE | 2020-09-13 11:54 | Consultation ---
Consult Note Consult Note Cardiology for Dr. Carballo/ Cardiac EP Pt seen, examined and chart reviewed. Full note to follow. Pt is an 85 yo woman with htn, dm, dementia, chf and persistent AF. Also, recent covid infection - covid neg x1 this adm. She was adm w/ dyspnea, hypoxia and AF. Trop mildly elevated. ECHO w/o WMA, but severe pulm HTN Rec: serial troponins, EKGs - clinical presentation c/w demand ischemia. Diuresis w lasix. Ventricular rate control and a-c for AF. Divya Snell MD Sep 13, 2020 11:54
[2020-09-13 12:00] VITALS: BP 123/44
--- NOTE | 2020-09-13 13:14 | Diagnostic Imaging Report ---
Indication: Shortness of breath Technique: One view of the chest Comparison: 09/11/2020 Findings: Interim increase in bilateral streaky infiltrates. The heart size is borderline enlarged. The heart size is upper limits normal. The pleural spaces are grossly clear. Impression: Increased infiltrates, likely pneumonia, versus edema bilaterally
[2020-09-13 16:00] VITALS: BP 101/34
--- NOTE | 2020-09-13 16:00 | Consultation ---
DATE OF CONSULTATION: 09/13/2020 This is a cardiology consultation done as a coverage for Dr. Carballo. REASON FOR CONSULT: Elevated troponin level and dyspnea. HISTORY OF PRESENT ILLNESS: History is mainly obtained from the chart and treating providers. The patient is a limited historian due to dementia. The patient is an 85-year-old woman with history of persistent atrial fibrillation, congestive heart failure, and dementia. She was brought to the emergency room on 09/11/2020 with abdominal complaints, alternating constipation and diarrhea. She was felt to have a colitis. Lactic acid was elevated. She has not started on intravenous antibiotics and received intravenous fluids. She was noted to have a mildly elevated troponin level of 0.173 and was in atrial fibrillation with ventricular rate of 80 to 100 beats per minute. Cardiology evaluation was requested. The patient is a very limited historian; however, she denies palpitations, chest pain, or dyspnea. Her cardiac workup so far has included an echo, which showed normal left ventricular systolic function and wall motion, ejection fraction was 65%. There was moderate tricuspid regurgitation and peak RV systolic pressure of 75 mmHg consistent with severe pulmonary hypertension. MEDICATIONS: Currently: 1. Vancomycin 750 mg IV q.24h. 2. Apixaban 5 mg p.o. b.i.d. 3. Metformin 500 mg at breakfast. 4. Atorvastatin 10 mg at bedtime. 5. Gabapentin 300 mg 4 times daily. 6. Oxybutynin 5 mg daily. 7. Protonix 40 mg daily. 8. Multivitamin 1 daily. 9. Losartan 100 mg daily. 10. Aricept 5 mg daily. 11. Amlodipine 2.5 mg daily. 12. Insulin sliding scale. 13. Zosyn 3.375 g IV q.8h 14. Tylenol p.r.n. 15. Imodium 2 mg 4 times a day p.r.n. 16. Mylanta p.r.n. ALLERGIES: Aspirin, Dilaudid, lorazepam, and morphine. PAST MEDICAL HISTORY: As noted above. SOCIAL HISTORY AND REVIEW OF SYSTEMS: Not reliably obtainable from the patient. Not obtainable from chart. PHYSICAL EXAMINATION: VITAL SIGNS: Blood pressure is 123/44, pulse 83, irregularly irregular. Respiration 19, afebrile, oxygen saturation 99% on 2 L nasal cannula oxygen. GENERAL: An alert, elderly-appearing woman, in no acute distress. HEENT: Normocephalic and atraumatic. Pupils are equal, round, and reactive to light. Oral mucosa moist. NECK: Supple. There is no jugular venous distention. Carotid pulses 2+ bilaterally. LUNGS: Breath sounds are diminished bilaterally. Good air movement. HEART: Irregularly irregular S1, S2 with no murmur or S3. ABDOMEN: Soft, nontender, and nondistended. EXTREMITIES: No cyanosis, clubbing, or edema. SKIN: No rashes or lesions. NEUROLOGIC: No gross focal motor deficits. Alert, oriented to person only, does not know the location, hospital, day, month, or year. LABORATORY AND DIAGNOSTIC DATA: Troponin 0.173 on admission, repeat 0.137. Sodium 142, potassium 3.7, chloride 106, bicarbonate 31, BUN 19, creatinine 1.1. Glucose 112. Hemoglobin 11, hematocrit 34, white blood count 6400, platelets 246,000. Urinalysis 2+ protein, 1+ leukocyte esterase, 5-10 white blood cells, and moderate bacteria. Cultures, urine negative, blood negative (24 hours). COVID rapid negative, repeat pending. Chest x-ray shows borderline cardiomegaly and increased bilateral perihilar infiltrates consistent with edema versus infiltrate. EKG shows atrial fibrillation with ventricular rate of 86 beats per minute, low voltage QRS, axis +60 degrees. Poor R-wave progression V1 to V3. Echo as noted above shows normal left ventricular systolic function and wall motion, but severe pulmonary hypertension, a technically difficult study. ASSESSMENT AND RECOMMENDATIONS: The patient is an 85-year-old woman with multiple chronic medical issues as noted above, who was admitted with abdominal complaints. She is being treated for colitis. She is noted to have a mildly elevated troponin without symptoms or EKG changes to suggest ischemia. I believe her mild troponin elevation may be a type 2 myocardial infarction, demand ischemia. She also has severe pulmonary hypertension and may have mild to moderate pulmonary vascular congestion. I would favor checking serial troponins, would also favor gentle diuresis with low-dose intravenous Lasix and close monitoring of intake and output, weights, renal function, and electrolytes. With regard to her atrial fibrillation, she is on appropriate therapy with anticoagulation (apixaban). She does not require rate-control medication at this point as ventricular rates are less than 100 beats per minute. We would continue statin for hyperlipidemia, losartan and amlodipine for hypertension. Would give low-dose beta-blockers. We will continue to follow for cardiac issues. Thank you for allowing me to participate in her care. Divya Snell M.D. DR: TRISHA JOB#: [id number] CC:
[2020-09-13] MEDS: Eliquis 5mg tablet ORAL SCH (18:10)
[2020-09-13 20:00] VITALS: BP 123/51
[2020-09-14] VITALS: BP 117/53
[2020-09-14] MEDS: Piperacillin/Tazobactam 3.375 GM in NS 110 ML IVPB SCH ×3 (01:37→18:09)
[2020-09-14 04:00] VITALS: BP 138/49
[2020-09-14] MEDS: NovoLOG Insulin Flexpen SUBQ SCH ×4 (05:51→21:00)
[2020-09-14] MEDS: metFORMIN 500mg tab ORAL SCH (05:55)
[2020-09-14] MEDS: Vancomycin 750 MG in NS 275 ML IVPB SCH (06:04)
[2020-09-14 08:00] VITALS: BP 133/44
[2020-09-14] MEDS: Losartan 50mg tab ORAL SCH (10:03)
[2020-09-14] MEDS: Donepezil 5mg Tab ORAL SCH (10:04)
[2020-09-14] MEDS: Oxybutynin 5mg tab ORAL SCH (10:07)
[2020-09-14] MEDS: Eliquis 5mg tablet ORAL SCH ×2 (10:07→17:29)
--- NOTE | 2020-09-14 10:07 | General Progress Note ---
Subjective Allergies: Coded Allergies: ASPIRIN (Verified Allergy, Unknown, 07/29/18) HYDROMORPHONE (Verified Adverse Reaction, Severe, Hallucinations, 10/16/18) LORAZEPAM (Verified Adverse Reaction, Severe, Altered Mental Status, 10/16/18) per Laureen matias, patient had afib MORPHINE (Verified Adverse Reaction, Severe, hallucinations, 10/16/18) Subjective care noted off isolation Objective Last 24 Hour Vital Signs Date Time Temp Pulse Resp B/P (MAP) Pulse Ox O2 Delivery O2 Flow Rate FiO2 09/14/20 08:00 2.0 09/14/20 08:00 Nasal Cannula 2.0 09/14/20 08:00 98.4 64 12 133/44 (73) 100 09/14/20 04:00 62 09/14/20 04:00 Nasal Cannula 2.0 09/14/20 04:00 98.1 63 15 138/49 (78) 99 09/14/20 04:00 2.0 09/14/20 00:00 63 09/14/20 00:00 98.4 65 15 117/53 (74) 98 09/14/20 00:00 Nasal Cannula 2.0 09/14/20 00:00 2.0 09/13/20 20:00 Nasal Cannula 2.0 09/13/20 20:00 98.7 64 15 123/51 (75) 99 09/13/20 20:00 2.0 09/13/20 20:00 63 09/13/20 16:00 Nasal Cannula 2.0 09/13/20 16:00 62 09/13/20 16:00 2.0 09/13/20 16:00 98.9 71 15 101/34 (56) 99 09/13/20 12:00 78 09/13/20 12:00 Nasal Cannula 2.0 09/13/20 12:00 98.5 83 19 123/44 (70) 99 09/13/20 12:00 2.0 09/13/20 10:06 81 122/43 Intake and Output 09/13/20 09/14/20 19:00 07:00 Intake Total 420 ml 295.0 ml Output Total 5 ml Balance 415 ml 295.0 ml Intake Oral 420 ml 240 ml IV Total 55.0 ml Output Urine Total 5 ml # Voids 3 # Bowel Movements 1 Laboratory Tests 09/13/20 10:08: Troponin I 0.187H 09/13/20 11:06: POC Whole Blood Glucose [Pending] 09/13/20 16:36: POC Whole Blood Glucose 137H 09/13/20 18:15: Troponin I 0.262H 09/13/20 20:59: POC Whole Blood Glucose [Pending] 09/14/20 02:10: Troponin I 0.195H, Pro-B-Type Natriuretic Peptide 7467H 09/14/20 05:50: POC Whole Blood Glucose 124H Height (Feet): 5 Height (Inches): 4.00 Weight (Pounds): 130 Objective WDWN NAD reduced breath sounds bilaterally without rhonchi or wheeze [id number] without MRG NABS nontender no HSM no CC mild nonfocal confused on oxygen Assessment/Plan Assessment/Plan: IMPRESSION: 1. Abnormal x-ray, possibly due to underlying pulmonary edema versus atypical pneumonia. 2. History of diarrhea and constipation. 3. Possible sepsis. 4. Elevated troponin. 5. Possible non-STEMI. 6. Hypercholesterolemia. 7. possible colitis RECOMMENDATIONS: 1. Empiric antibiotics and ID called and awaiting eval 2. monitor troponins- cards noted 3. Lasix with elevated BNP 4. Monitor clinically in telemetry. 5. GI evaluation called 6. Optimize care and per daughter, would like SNF placement full code impression, plan, and exam edited and reviewed in detail care discussed with Rodney Liang MD Sep 14, 2020 10:07
[2020-09-14] MEDS ORDERED: ELIQUIS5 MG ORAL (11:08)
[2020-09-14] MEDS ORDERED: VITAMIN D325 MC1 PO (11:25)
[2020-09-14] MEDS ORDERED: K-DUR10 ME1 ORAL (11:27)
[2020-09-14] MEDS ORDERED: CRANBERRY500 M4 PO (11:31)
[2020-09-14] MEDS ORDERED: MELATONIN 5 MG1 EAC1 ORAL (11:31)
[2020-09-14] MEDS ORDERED: FAMOTIDINE20 MG ORAL (11:31)
[2020-09-14] MEDS ORDERED: FUROSEMIDE20 M1 ORAL (11:31)
[2020-09-14 12:00] VITALS: BP 109/41
--- NOTE | 2020-09-14 15:30 | Consultation ---
DATE OF CONSULTATION: 09/14/2020 INFECTIOUS DISEASE CONSULTATION CONSULTING PHYSICIAN: Jazmyn Mcrae MD. REFERRING PHYSICIAN: Rodney Bowman MD. REASON FOR CONSULTATION: Pneumonia. HISTORY OF PRESENTING ILLNESS: This is an 85-year-old lady with history of congestive heart failure, diabetes, hypertension, dementia, and atrial fibrillation, who comes in with shortness of breath along with diarrhea. Chest x-ray showed some pneumonia and an Infectious Diseases consultation has been obtained for antibiotics. PAST MEDICAL HISTORY: 1. History of diabetes. 2. Hypertension. 3. Congestive heart failure. 4. Atrial fibrillation. 5. Dementia. SOCIAL HISTORY: She does not smoke, drink, or use drugs. FAMILY HISTORY: Unknown. REVIEW OF SYSTEMS: Unable to obtain currently. MEDICATIONS: As an inpatient, she is on furosemide, vancomycin, Eliquis, metformin, atorvastatin, gabapentin, oxybutynin, Protonix, multivitamin, losartan, donepezil, amlodipine, insulin Zosyn, Tylenol, loperamide, Mylanta. ALLERGIES: 1. Aspirin. 2. Hydromorphone. 3. Lorazepam. 4. Morphine. PHYSICAL EXAMINATION: VITAL SIGNS: Temperature 98.4, T-max of 98.9, pulse 64, respiratory rate 12, blood pressure 133/44, O2 saturation of 100% on 2 liters of nasal cannula. HEENT: Pupils are equally reactive to light and accommodation. Mouth appears clean without thrush. NECK: Supple. No adenopathy. No JVD. CARDIOVASCULAR: Regular rate and rhythm. No murmurs. LUNGS: Clear to auscultation bilaterally. No crackles. No wheezes. ABDOMEN: Soft, nontender. No organomegaly. EXTREMITIES: No cyanosis, no clubbing, no edema. LABORATORY AND DIAGNOSTIC DATA: White count 6.4, hemoglobin 11, hematocrit 34.3, MCV 97, platelet count of 246,000 with neutrophils of 54%. Sodium 146, potassium 3.8, chloride 110, bicarb 30, BUN 12, creatinine 1. Glucose 140. Calcium of 8.4. Total bilirubin 0.3, AST 22, ALT 15, alkaline phosphatase 68. CK of , CK-MB 0 1. Troponin 0.173. Total protein 5.6, albumin 2.7. UA showing 5 to 10 white cells. Blood cultures are negative. 09/11/2020, COVID-19 test is negative. 09/11/2020 urine cultures are negative. 09/12/2020, COVID-19 test is negative. Chest x-ray on September 11 showing bilateral infiltrates, could be pulmonary edema. CT abdomen and pelvis showing reticular and ground-glass opacities within the lingula and bilateral lower lobe, may represent atelectasis. Trace left-sided pleural effusion. Nonspecific colitis noted. CT head showing no acute infarct, hemorrhage, mass, or edema. ASSESSMENT: This is an 85-year-old lady with history of diabetes, hypertension, atrial fibrillation, dementia, and congestive heart failure, who comes in with shortness of breath and is found to have, 1. Possible pneumonia. COVID-19 test is negative x2. 2. Congestive heart failure. 3. Diabetes. 4. Hypertension. PLAN: 1. Continue IV vancomycin and Zosyn. 2. We will follow up cultures and adjust antibiotics accordingly. 3. We will order sputum for Gram stain and culture. I would like to thank Dr. Bowman for this consultation. Jazmyn Mcrae M.D. DR: JAGDISH JOB#: [id number] CC:
[2020-09-14 16:00] VITALS: BP 98/31
--- NOTE | 2020-09-14 16:56 | General Progress Note ---
Subjective Allergies: Coded Allergies: ASPIRIN (Verified Allergy, Unknown, 07/29/18) HYDROMORPHONE (Verified Adverse Reaction, Severe, Hallucinations, 10/16/18) LORAZEPAM (Verified Adverse Reaction, Severe, Altered Mental Status, 10/16/18) per Laureen matias, patient had afib MORPHINE (Verified Adverse Reaction, Severe, hallucinations, 10/16/18) Objective Last 24 Hour Vital Signs Date Time Temp Pulse Resp B/P (MAP) Pulse Ox O2 Delivery O2 Flow Rate FiO2 09/14/20 16:07 Nasal Cannula 2.0 09/14/20 16:00 63 09/14/20 16:00 2.0 09/14/20 12:00 Nasal Cannula 2.0 09/14/20 12:00 2.0 09/14/20 12:00 97.9 66 23 109/41 (63) 100 09/14/20 12:00 66 09/14/20 10:05 64 133/44 09/14/20 10:03 133/44 09/14/20 08:00 2.0 09/14/20 08:00 Nasal Cannula 2.0 09/14/20 08:00 63 09/14/20 08:00 98.4 64 12 133/44 (73) 100 09/14/20 04:00 62 09/14/20 04:00 Nasal Cannula 2.0 09/14/20 04:00 98.1 63 15 138/49 (78) 99 09/14/20 04:00 2.0 09/14/20 00:00 63 09/14/20 00:00 98.4 65 15 117/53 (74) 98 09/14/20 00:00 Nasal Cannula 2.0 09/14/20 00:00 2.0 09/13/20 20:00 Nasal Cannula 2.0 09/13/20 20:00 98.7 64 15 123/51 (75) 99 09/13/20 20:00 2.0 09/13/20 20:00 63 Intake and Output 09/13/20 09/14/20 19:00 07:00 Intake Total 420 ml 295.0 ml Output Total 5 ml Balance 415 ml 295.0 ml Intake Oral 420 ml 240 ml IV Total 55.0 ml Output Urine Total 5 ml # Voids 3 # Bowel Movements 1 Laboratory Tests 09/13/20 18:15: Troponin I 0.262H 09/13/20 20:59: POC Whole Blood Glucose [Pending] 09/14/20 02:10: Troponin I 0.195H, Pro-B-Type Natriuretic Peptide 7467H 09/14/20 05:50: POC Whole Blood Glucose 124H 09/14/20 10:00: Troponin I 0.194H 09/14/20 12:25: POC Whole Blood Glucose 166H Height (Feet): 5 Height (Inches): 4.00 Weight (Pounds): 130 Assessment/Plan Assessment/Plan: Assessment - Diarrhea - Thickened (L) colon, r/o C diff - PNA - OBS - CHF - Atrial fibrillatin - Pulmonary HTN Recommendations - await stool for C diff (discussed with RN) - Begin PO vancomycin until results of stool obtained - Push po - [facility] Will follow Thank you MD Joseph Bailey Payman MD Sep 14, 2020 16:56
[2020-09-14] MEDS: Vancomycin oral 125mg/2.5ml ORAL SCH ×2 (17:34→21:16)
[2020-09-14 20:00] VITALS: BP 99/33
--- NOTE | 2020-09-14 23:00 | Consultation ---
DATE OF CONSULTATION: 09/13/2020 GASTROENTEROLOGY CONSULTATION REPORT CONSULTING PHYSICIAN: Cooper Ruiz MD CHIEF COMPLAINT: I was asked to see this patient by Dr. Rodney Bowman for evaluation of diarrhea. HISTORY OF PRESENT ILLNESS: The patient is an 85-year-old woman who was admitted to the hospital due to weakness and diarrhea. She is a poor historian and not much information is available from her. She has some cardiac issues including congestive heart failure and atrial fibrillation and she is on anticoagulation. During the hospital stay, she has been noted to have some diarrhea, but a successful stool collection has not been yet possible. Patient has been seen by multiple consultants. PAST MEDICAL HISTORY: History of congestive heart failure, atrial fibrillation, dementia, hypertension, diabetes. MEDICATIONS: Noted. ALLERGIES: Reviewed. FAMILY HISTORY: Noncontributory. SOCIAL HISTORY: Patient does not smoke or drink alcohol. Her daughter looks after her affairs. REVIEW OF SYSTEMS: Otherwise negative and unobtainable. PHYSICAL EXAMINATION: GENERAL: Debilitated elderly woman, seen in her room. HEENT: Normocephalic and atraumatic. Sclerae anicteric. Oropharynx clear. NECK: Supple. CHEST: Clear to auscultation. CARDIOVASCULAR: Revealed a regular rate. ABDOMEN: Soft and nontender. EXTREMITIES: Revealed no edema. LABORATORY DATA: Noted. ASSESSMENT: This patient presents with diarrheal complaint as well as CT scan, which showed some thickening in the left colon consistent with possible colitis. Under these circumstances, the Clostridium difficile will be high in the differential. The patient also has a pneumonitis and she has been treated with antibiotics. At the same time, the stool was not been obtainable due to collection issues and therefore I will start the patient on vancomycin orally until the stool collection is possible. The patient's oral diet should be encouraged and head of bed should be elevated to prevent aspiration. RECOMMENDATIONS: Per above discussion and per orders written in the chart. Thank you for asking me to participate in the care of this patient. Cooper Ruiz M.D. DR: GIOVANNA JOB#: [id number] CC:
[2020-09-15] VITALS: BP 100/40
[2020-09-15] MEDS: Piperacillin/Tazobactam 3.375 GM in NS 110 ML IVPB SCH ×3 (02:08→17:16)
[2020-09-15 02:42] LABS: BLOOD UREA NITROGEN 11 mg/dL (7-18); CALCIUM 7.9 MG/DL (8.5-10.1); CHLORIDE 107 MMOL/L (98-107); CREATININE 0.9 MG/DL (0.55-1.30); POTASSIUM 3.4 MMOL/L (3.5-5.1); SODIUM 142 MMOL/L (136-145)
[2020-09-15 02:55] LABS: CARBON DIOXIDE 32 MMOL/L (21-32)
[2020-09-15 04:00] VITALS: BP 116/36
[2020-09-15] MEDS: Vancomycin 750 MG in NS 275 ML IVPB SCH (06:09)
[2020-09-15] MEDS: NovoLOG Insulin Flexpen SUBQ SCH ×4 (06:30→21:00)
[2020-09-15] MEDS: metFORMIN 500mg tab ORAL SCH (06:52)
[2020-09-15] MEDS ORDERED: Tubing IV Secondary IV ONE ×3 (07:01→17:46)
[2020-09-15] MEDS ORDERED: D5W 275ml ONE (07:01)
[2020-09-15] MEDS ORDERED: NS 275ml ONE ×2 (07:02→07:04)
[2020-09-15 08:00] VITALS: BP 97/35
[2020-09-15] MEDS: Eliquis 5mg tablet ORAL SCH ×2 (08:25→17:16)
[2020-09-15] MEDS: Donepezil 5mg Tab ORAL SCH (08:25)
[2020-09-15] MEDS: Oxybutynin 5mg tab ORAL SCH (08:25)
[2020-09-15] MEDS: Vancomycin oral 125mg/2.5ml ORAL SCH ×4 (08:25→21:29)
--- NOTE | 2020-09-15 08:54 | General Progress Note ---
Subjective ROS Limited/Unobtainable: No Allergies: Coded Allergies: ASPIRIN (Verified Allergy, Unknown, 07/29/18) HYDROMORPHONE (Verified Adverse Reaction, Severe, Hallucinations, 10/16/18) LORAZEPAM (Verified Adverse Reaction, Severe, Altered Mental Status, 10/16/18) per Laureen matias, patient had afib MORPHINE (Verified Adverse Reaction, Severe, hallucinations, 10/16/18) Objective Last 24 Hour Vital Signs Date Time Temp Pulse Resp B/P (MAP) Pulse Ox O2 Delivery O2 Flow Rate FiO2 09/15/20 08:00 97.6 62 18 97/35 (55) 97 09/15/20 04:00 64 09/15/20 04:00 97.9 63 18 116/36 (62) 97 09/15/20 04:00 2.0 09/15/20 00:00 60 09/15/20 00:00 98.3 68 20 100/40 (60) 99 09/14/20 20:00 2.0 09/14/20 20:00 Nasal Cannula 2.0 09/14/20 20:00 61 09/14/20 20:00 97.7 63 16 99/33 (55) 99 09/14/20 16:07 Nasal Cannula 2.0 09/14/20 16:00 99.0 65 15 98/31 (53) 100 09/14/20 16:00 63 09/14/20 16:00 2.0 09/14/20 12:00 Nasal Cannula 2.0 09/14/20 12:00 2.0 09/14/20 12:00 97.9 66 23 109/41 (63) 100 09/14/20 12:00 66 09/14/20 10:05 64 133/44 09/14/20 10:03 133/44 Intake and Output 09/14/20 09/15/20 19:00 07:00 Intake Total 300 ml 360 ml Output Total 802 ml Balance -502 ml 360 ml Intake Oral 300 ml 360 ml Output Urine Total 800 ml Stool Total 2 ml # Voids 1 # Bowel Movements 2 Laboratory Tests 09/14/20 10:00: Troponin I 0.194H 09/14/20 12:25: POC Whole Blood Glucose 166H 09/14/20 17:26: POC Whole Blood Glucose [Pending] 09/14/20 18:25: Troponin I 0.183H 09/14/20 21:26: POC Whole Blood Glucose 85 09/15/20 02:10: Sodium Level 142, Potassium Level 3.4L, Chloride Level 107, Carbon Dioxide Level 32, Blood Urea Nitrogen 11, Creatinine 0.9, Estimat Glomerular Filtration Rate > 60, Glucose Level 111H, Calcium Level 7.9L, Troponin I 0.170H, Pro-B-Type Natriuretic Peptide 4939H 09/15/20 06:30: POC Whole Blood Glucose 97 Height (Feet): 5 Height (Inches): 4.00 Weight (Pounds): 130 General Appearance: no apparent distress EENT: PERRL/EOMI Neck: supple Cardiovascular: normal rate Respiratory/Chest: decreased breath sounds Abdomen: hypoactive bowel sounds Extremities: non-tender Assessment/Plan Problem List: (1) CHF exacerbation ICD Codes: I50.9 - Heart failure, unspecified SNOMED: 651369122, [id number] (2) Pleural effusion ICD Codes: J90 - Pleural effusion, not elsewhere classified SNOMED: 21457316 (3) Alzheimer disease ICD Codes: G30.9 - Alzheimer's disease, unspecified; F02.80 - Dementia in other diseases classified elsewhere without behavioral disturbance SNOMED: 73941120 (4) Colitis ICD Codes: K52.9 - Noninfective gastroenteritis and colitis, unspecified SNOMED: 62282014 (5) Diabetes ICD Codes: E11.9 - Type 2 diabetes mellitus without complications SNOMED: 00430041 Assessment/Plan: no recurrent diarrhea on po Vanco on ppi diabetic control will fu Justin Kaiser MD Sep 15, 2020 08:54
[2020-09-15] MEDS: Losartan 50mg tab ORAL SCH (09:00)
[2020-09-15 12:00] VITALS: BP 122/47
--- NOTE | 2020-09-15 13:47 | Pulmonology Progress Note ---
Subjective ROS Limited/Unobtainable: No Allergies: Coded Allergies: ASPIRIN (Verified Allergy, Unknown, 07/29/18) HYDROMORPHONE (Verified Adverse Reaction, Severe, Hallucinations, 10/16/18) LORAZEPAM (Verified Adverse Reaction, Severe, Altered Mental Status, 10/16/18) per Laureen matias, patient had afib MORPHINE (Verified Adverse Reaction, Severe, hallucinations, 10/16/18) Objective Last 24 Hour Vital Signs Date Time Temp Pulse Resp B/P (MAP) Pulse Ox O2 Delivery O2 Flow Rate FiO2 09/15/20 12:00 98.0 61 18 122/47 (72) 98 09/15/20 12:00 2.0 09/15/20 12:00 61 09/15/20 09:00 97/35 09/15/20 09:00 62 97/35 09/15/20 08:00 64 09/15/20 08:00 97.6 62 18 97/35 (55) 97 09/15/20 08:00 2.0 09/15/20 04:00 64 09/15/20 04:00 97.9 63 18 116/36 (62) 97 09/15/20 04:00 2.0 09/15/20 00:00 60 09/15/20 00:00 98.3 68 20 100/40 (60) 99 09/14/20 20:00 2.0 09/14/20 20:00 Nasal Cannula 2.0 09/14/20 20:00 61 09/14/20 20:00 97.7 63 16 99/33 (55) 99 09/14/20 16:07 Nasal Cannula 2.0 09/14/20 16:00 99.0 65 15 98/31 (53) 100 09/14/20 16:00 63 09/14/20 16:00 2.0 Intake and Output 09/14/20 09/15/20 19:00 07:00 Intake Total 300 ml 360 ml Output Total 802 ml Balance -502 ml 360 ml Intake Oral 300 ml 360 ml Output Urine Total 800 ml Stool Total 2 ml # Voids 1 # Bowel Movements 2 Laboratory Tests 09/14/20 17:26: POC Whole Blood Glucose [Pending] 09/14/20 18:25: Troponin I 0.183H 09/14/20 21:26: POC Whole Blood Glucose 85 09/15/20 02:10: Troponin I 0.170H, Sodium Level 142, Potassium Level 3.4L, Chloride Level 107, Carbon Dioxide Level 32, Blood Urea Nitrogen 11, Creatinine 0.9, Estimat Glomerular Filtration Rate > 60, Glucose Level 111H, Calcium Level 7.9L, Pro-B-Type Natriuretic Peptide 4939H 09/15/20 06:30: POC Whole Blood Glucose 97 09/15/20 09:55: Troponin I 0.114H 09/15/20 11:34: POC Whole Blood Glucose 103 Current Medications Medications (Trade) Dose Ordered Sig/Arielle Route PRN Reason Start Time Stop Time Status Last Admin Dose Admin Acetaminophen (Tylenol) 650 mg Q4H PRN ORAL MILD/TEMP 09/12/20 01:30 10/12/20 01:29 Al Hydroxide/Mg Hydroxide (Mylanta) 30 ml Q4H PRN ORAL Per rx protocol 09/12/20 01:00 10/12/20 00:59 Amlodipine Besylate (Norvasc) 2.5 mg DAILY ORAL 09/12/20 09:00 10/12/20 08:59 09/14/20 10:05 Apixaban (Eliquis) 5 mg BID ORAL 09/13/20 18:00 12/12/20 17:59 09/15/20 08:25 Atorvastatin Calcium (Lipitor) 10 mg BEDTIME ORAL 09/12/20 21:00 12/11/20 20:59 09/14/20 21:16 Dextrose (Dextrose 50%) 25 ml Q30M PRN IV Hypoglycemia 09/12/20 01:00 12/11/20 00:59 Dextrose (Dextrose 50%) 50 ml Q30M PRN IV Hypoglycemia 09/12/20 01:00 12/11/20 00:59 Donepezil HCl (Aricept) 5 mg DAILY ORAL 09/12/20 09:00 10/12/20 08:59 09/15/20 08:25 Gabapentin (Neurontin) 300 mg FOUR TIMES A DAY ORAL 09/12/20 13:00 10/12/20 12:59 09/15/20 13:31 Insulin Aspart (NovoLOG) BEFORE MEALS AND HS SUBQ 09/12/20 06:30 12/11/20 06:29 09/14/20 12:32 Losartan Potassium (Cozaar) 100 mg DAILY ORAL 09/12/20 09:00 10/12/20 08:59 09/14/20 10:03 Metformin HCl (Glucophage) 500 mg ACBREAKFAST ORAL 09/13/20 06:30 10/13/20 06:29 09/15/20 06:52 Multivitamins (Multivitamins) 1 tab DAILY ORAL 09/12/20 09:00 10/12/20 08:59 09/15/20 08:24 Oxybutynin Chloride (Ditropan) 5 mg DAILY ORAL 09/12/20 09:00 10/12/20 08:59 09/15/20 08:25 Pantoprazole (Protonix) 40 mg DAILY ORAL 09/12/20 09:00 10/12/20 08:59 09/15/20 08:25 Piperacillin Sod/ Tazobactam Sod 3.375 gm/Sodium Chloride 110 ml @ 27.5 mls/hr Q8H IVPB 09/12/20 02:00 09/19/20 01:59 09/15/20 11:21 Vancomycin HCl (Firvanq) 125 mg FOUR TIMES A DAY ORAL 09/14/20 18:00 09/21/20 17:59 09/15/20 13:31 Vancomycin HCl (Vanco pharmacy to dose) 1 ea DAILY PRN MISC Per rx protocol 09/12/20 01:00 10/12/20 00:59 Vancomycin HCl 750 mg/Sodium Chloride 275 ml @ 183.333 mls/hr Q24H IVPB 09/14/20 06:00 09/19/20 05:59 09/15/20 06:09 Assessment/Plan Assessment/Plan Pulmonary Progress Note Subjective Allergies: Coded Allergies: ASPIRIN (Verified Allergy, Unknown, 07/29/18) HYDROMORPHONE (Verified Adverse Reaction, Severe, Hallucinations, 10/16/18) LORAZEPAM (Verified Adverse Reaction, Severe, Altered Mental Status, 10/16/18) per Laureen matias, patient had afib MORPHINE (Verified Adverse Reaction, Severe, hallucinations, 10/16/18) Subjective care noted off isolation Objective Vital Signs noted Laboratory Tests noted Height (Feet): 5 Height (Inches): 4.00 Weight (Pounds): 130 Objective WDWN NAD reduced breath sounds bilaterally without rhonchi or wheeze [id number] without MRG NABS nontender no HSM no CC mild nonfocal confused on oxygen Assessment/Plan Assessment/Plan: IMPRESSION: 1. Abnormal x-ray, possibly due to underlying pulmonary edema versus atypical pneumonia. 2. History of diarrhea and constipation. 3. Possible sepsis. 4. Elevated troponin. 5. Possible non-STEMI. 6. Hypercholesterolemia. 7. possible colitis - GI following RECOMMENDATIONS: 1. Empiric antibiotics per ID 2. monitor troponins- cards noted 3. Lasix with elevated BNP 4. Monitor clinically in telemetry. 5. GI evaluation called 6. Optimize care and per daughter, would like SNF placement 7. Monitor labs full code impression, plan, and exam edited and reviewed in detail care discussed with Iftikhar Michaud MD Sep 15, 2020 13:47
[2020-09-15] MEDS ORDERED: Sodium Chloride for KCL Premix X 1hr IV SCH (14:00)
--- NOTE | 2020-09-15 14:30 | Infectious Diseases Prog Note ---
Assessment/Plan Assessment/Plan A: 1. Possible pneumonia. COVID-19 test is negative x2. 2. Congestive heart failure. 3. Diabetes. 4. Hypertension. 5. Diarrhea improving 6. Alzheimer disease PLAN: 1. Continue IV & PO vancomycin and Zosyn. 2. We will follow up cultures and adjust antibiotics accordingly. Subjective ROS Limited/Unobtainable: Yes Constitutional: Denies: fever Psychiatric: Reports: other - restrained by mittens Allergies: Coded Allergies: ASPIRIN (Verified Allergy, Unknown, 07/29/18) HYDROMORPHONE (Verified Adverse Reaction, Severe, Hallucinations, 10/16/18) LORAZEPAM (Verified Adverse Reaction, Severe, Altered Mental Status, 10/16/18) per Laureen matias, patient had afib MORPHINE (Verified Adverse Reaction, Severe, hallucinations, 10/16/18) Objective Last 24 Hour Vital Signs Date Time Temp Pulse Resp B/P (MAP) Pulse Ox O2 Delivery O2 Flow Rate FiO2 09/15/20 12:00 98.0 61 18 122/47 (72) 98 09/15/20 12:00 2.0 09/15/20 12:00 61 09/15/20 09:00 97/35 09/15/20 09:00 62 97/35 09/15/20 08:00 64 09/15/20 08:00 97.6 62 18 97/35 (55) 97 09/15/20 08:00 2.0 09/15/20 04:00 64 09/15/20 04:00 97.9 63 18 116/36 (62) 97 09/15/20 04:00 2.0 09/15/20 00:00 60 09/15/20 00:00 98.3 68 20 100/40 (60) 99 09/14/20 20:00 2.0 09/14/20 20:00 Nasal Cannula 2.0 09/14/20 20:00 61 09/14/20 20:00 97.7 63 16 99/33 (55) 99 09/14/20 16:07 Nasal Cannula 2.0 09/14/20 16:00 99.0 65 15 98/31 (53) 100 09/14/20 16:00 63 09/14/20 16:00 2.0 Height (Feet): 5 Height (Inches): 4.00 Weight (Pounds): 130 General Appearance: no acute distress HEENT: other - hair loss, Respiratory/Chest: lungs clear Cardiovascular: normal rate Abdomen: soft, non tender Extremities: no edema Neurologic/Psychiatric: other - sleeping Laboratory Tests Test 09/14/20 17:26 09/14/20 18:25 09/14/20 21:26 09/15/20 02:10 POC Whole Blood Glucose Pending 85 MG/DL (74-106) Troponin I 0.183 ng/mL (0.000-0.056) 0.170 ng/mL (0.000-0.056) Sodium Level 142 MMOL/L (136-145) Potassium Level 3.4 MMOL/L (3.5-5.1) L Chloride Level 107 MMOL/L (98-107) Carbon Dioxide Level 32 MMOL/L (21-32) Blood Urea Nitrogen 11 mg/dL (7-18) Creatinine 0.9 MG/DL (0.55-1.30) Estimat Glomerular Filtration Rate > 60 mL/min (>60) Glucose Level 111 MG/DL (74-106) H Calcium Level 7.9 MG/DL (8.5-10.1) L Pro-B-Type Natriuretic Peptide 4939 pg/mL (0-125) H Test 09/15/20 06:30 09/15/20 09:55 09/15/20 11:34 POC Whole Blood Glucose 97 MG/DL (74-106) 103 MG/DL (74-106) Troponin I 0.114 ng/mL (0.000-0.056) Current Medications Medications (Trade) Dose Ordered Sig/Arielle Route PRN Reason Start Time Stop Time Status Last Admin Dose Admin Acetaminophen (Tylenol) 650 mg Q4H PRN ORAL MILD/TEMP 09/12/20 01:30 10/12/20 01:29 Al Hydroxide/Mg Hydroxide (Mylanta) 30 ml Q4H PRN ORAL Per rx protocol 09/12/20 01:00 10/12/20 00:59 Amlodipine Besylate (Norvasc) 2.5 mg DAILY ORAL 09/12/20 09:00 10/12/20 08:59 09/14/20 10:05 Apixaban (Eliquis) 5 mg BID ORAL 09/13/20 18:00 12/12/20 17:59 09/15/20 08:25 Atorvastatin Calcium (Lipitor) 10 mg BEDTIME ORAL 09/12/20 21:00 12/11/20 20:59 09/14/20 21:16 Dextrose (Dextrose 50%) 25 ml Q30M PRN IV Hypoglycemia 09/12/20 01:00 12/11/20 00:59 Dextrose (Dextrose 50%) 50 ml Q30M PRN IV Hypoglycemia 09/12/20 01:00 12/11/20 00:59 Donepezil HCl (Aricept) 5 mg DAILY ORAL 09/12/20 09:00 10/12/20 08:59 09/15/20 08:25 Gabapentin (Neurontin) 300 mg FOUR TIMES A DAY ORAL 09/12/20 13:00 10/12/20 12:59 09/15/20 13:31 Insulin Aspart (NovoLOG) BEFORE MEALS AND HS SUBQ 09/12/20 06:30 12/11/20 06:29 09/14/20 12:32 Losartan Potassium (Cozaar) 100 mg DAILY ORAL 09/12/20 09:00 10/12/20 08:59 09/14/20 10:03 Metformin HCl (Glucophage) 500 mg ACBREAKFAST ORAL 09/13/20 06:30 10/13/20 06:29 09/15/20 06:52 Multivitamins (Multivitamins) 1 tab DAILY ORAL 09/12/20 09:00 10/12/20 08:59 09/15/20 08:24 Oxybutynin Chloride (Ditropan) 5 mg DAILY ORAL 09/12/20 09:00 10/12/20 08:59 09/15/20 08:25 Pantoprazole (Protonix) 40 mg DAILY ORAL 09/12/20 09:00 10/12/20 08:59 09/15/20 08:25 Piperacillin Sod/ Tazobactam Sod 3.375 gm/Sodium Chloride 110 ml @ 27.5 mls/hr Q8H IVPB 09/12/20 02:00 09/19/20 01:59 09/15/20 11:21 Potassium Chloride 100 ml @ 100 mls/hr Q1H IVPB 09/15/20 14:00 09/15/20 14:59 09/15/20 14:12 Sodium Chloride 100 ml @ 100 mls/hr Q1H IV 09/15/20 14:00 09/15/20 14:59 09/15/20 14:12 Vancomycin HCl (Firvanq) 125 mg FOUR TIMES A DAY ORAL 09/14/20 18:00 09/21/20 17:59 09/15/20 13:31 Vancomycin HCl (Vanco pharmacy to dose) 1 ea DAILY PRN MISC Per rx protocol 09/12/20 01:00 10/12/20 00:59 Vancomycin HCl 750 mg/Sodium Chloride 275 ml @ 183.333 mls/hr Q24H IVPB 09/14/20 06:00 09/19/20 05:59 09/15/20 06:09 Santos Amezcua MD Sep 15, 2020 14:30
[2020-09-15 16:00] VITALS: BP 134/49
--- NOTE | 2020-09-15 17:27 | Cardiology Progress Note ---
Assessment/Plan Problem List: (1) Atrial fibrillation (2) Pulmonary hypertension (3) Elevated troponin (4) Alzheimer disease (5) Diabetes (6) Diarrhea Status: stable, unchanged Status Narrative Mrs. Fountain is stable from a cardiac standpoint. Troponin levels are downtrending - inc on admission c/w demand ischemia / type 2 MN. She is in AF, likely permanent, with controlled ventricular rates. She has severe pulm hypertension, possible chf on adm ( based on xr and elevated bnp). Overall improved w/ diuretics Assessment/Plan Recommend lasix diuresis w/ K supplement. Accurate i/os, daily wts, and followup labs, including bnp. Followup cxr Continue apixaban for cva prevention in af. Ventricular rates are controlled. Med management for CAD - asa, statin Subjective ROS Limited/Unobtainable: Yes Subjective Cardiology for Dr. Carballo Pt alert/ confused Denies pain, dyspnea Events noted. Objective Last 24 Hour Vital Signs Date Time Temp Pulse Resp B/P (MAP) Pulse Ox O2 Delivery O2 Flow Rate FiO2 09/15/20 16:00 62 09/15/20 16:00 2.0 09/15/20 16:00 97.5 62 18 134/49 (77) 97 09/15/20 12:00 98.0 61 18 122/47 (72) 98 09/15/20 12:00 2.0 09/15/20 12:00 61 09/15/20 09:00 97/35 09/15/20 09:00 62 97/35 09/15/20 09:00 Nasal Cannula 2.0 09/15/20 08:00 64 09/15/20 08:00 97.6 62 18 97/35 (55) 97 09/15/20 08:00 2.0 09/15/20 04:00 64 09/15/20 04:00 97.9 63 18 116/36 (62) 97 09/15/20 04:00 2.0 09/15/20 00:00 60 09/15/20 00:00 98.3 68 20 100/40 (60) 99 09/14/20 20:00 2.0 09/14/20 20:00 Nasal Cannula 2.0 09/14/20 20:00 61 09/14/20 20:00 97.7 63 16 99/33 (55) 99 General Appearance: WD/WN, alert EENT: PERRL/EOMI Neck: non-tender, no JVD Rhythm: Afib Cardiovascular: normal rate, irregularly irregular Respiratory/Chest: lungs clear, no respiratory distress, no accessory muscle use, other - clear anteriorly Abdomen: normal bowel sounds, non tender, soft Extremities: no swelling Intake and Output 09/14/20 09/15/20 19:00 07:00 Intake Total 300 ml 360 ml Output Total 802 ml Balance -502 ml 360 ml Intake Oral 300 ml 360 ml Output Urine Total 800 ml Stool Total 2 ml # Voids 1 # Bowel Movements 2 Laboratory Tests Test 09/14/20 17:26 09/14/20 18:25 09/14/20 21:26 09/15/20 02:10 POC Whole Blood Glucose Pending 85 MG/DL (74-106) Troponin I 0.183 ng/mL (0.000-0.056) 0.170 ng/mL (0.000-0.056) Sodium Level 142 MMOL/L (136-145) Potassium Level 3.4 MMOL/L (3.5-5.1) L Chloride Level 107 MMOL/L (98-107) Carbon Dioxide Level 32 MMOL/L (21-32) Blood Urea Nitrogen 11 mg/dL (7-18) Creatinine 0.9 MG/DL (0.55-1.30) Estimat Glomerular Filtration Rate > 60 mL/min (>60) Glucose Level 111 MG/DL (74-106) H Calcium Level 7.9 MG/DL (8.5-10.1) L Pro-B-Type Natriuretic Peptide 4939 pg/mL (0-125) H Test 09/15/20 06:30 09/15/20 09:55 09/15/20 11:34 09/15/20 15:55 POC Whole Blood Glucose 97 MG/DL (74-106) 103 MG/DL (74-106) Pending Troponin I 0.114 ng/mL (0.000-0.056) Divya Snell MD Sep 15, 2020 17:27
[2020-09-15 20:00] VITALS: BP 120/45
[2020-09-16] VITALS (8 sets, daily range): BP systolic 109–142; BP diastolic 42–67
[2020-09-16] MEDS: Piperacillin/Tazobactam 3.375 GM in NS 110 ML IVPB SCH ×4 (02:27→20:30)
[2020-09-16] MEDS: Vancomycin 750 MG in NS 275 ML IVPB SCH (06:00)
[2020-09-16 06:02] LABS: BASOPHILS % (AUTO) 1.5 % (0.0-2.0); EOSINOPHILS % (AUTO) 2.3 % (0.0-3.0); HEMATOCRIT 31.8 % (37.0-47.0); LYMPHOCYTES % (AUTO) 14.2 % (20.0-45.0); MEAN CORPUSCULAR VOLUME 98 FL (80-99); MONOCYTES % (AUTO) 7.5 % (1.0-10.0); NEUTROPHILS % (AUTO) 74.4 % (45.0-75.0); PLATELET COUNT 286 K/UL (150-450); RED BLOOD COUNT 3.25 M/UL (4.20-5.40); RED CELL DISTRIBUTION WIDTH 14.8 % (11.6-14.8); WHITE BLOOD COUNT 7.7 K/UL (4.8-10.8)
[2020-09-16] MEDS: metFORMIN 500mg tab ORAL SCH (06:30)
[2020-09-16] MEDS: NovoLOG Insulin Flexpen SUBQ SCH ×4 (06:30→20:31)
[2020-09-16 06:39] LABS: ALANINE AMINOTRANSFERASE 18 U/L (12-78); ALBUMIN/GLOBULIN RATIO 0.5 (1.0-2.7); ALKALINE PHOSPHATASE 61 U/L (46-116); ANION GAP 5 mmol/L (5-15); ASPARTATE AMINO TRANSFERASE 19 U/L (15-37); BILIRUBIN,TOTAL 0.5 MG/DL (0.2-1.0); BLOOD UREA NITROGEN 8 mg/dL (7-18); CALCIUM 7.8 MG/DL (8.5-10.1); CARBON DIOXIDE 34 MMOL/L (21-32); CHLORIDE 108 MMOL/L (98-107); CREATININE 0.7 MG/DL (0.55-1.30); POTASSIUM 3.4 MMOL/L (3.5-5.1); SODIUM 147 MMOL/L (136-145)
--- NOTE | 2020-09-16 07:33 | General Progress Note ---
Subjective ROS Limited/Unobtainable: No Allergies: Coded Allergies: ASPIRIN (Verified Allergy, Unknown, 07/29/18) HYDROMORPHONE (Verified Adverse Reaction, Severe, Hallucinations, 10/16/18) LORAZEPAM (Verified Adverse Reaction, Severe, Altered Mental Status, 10/16/18) per Laureen matias, patient had afib MORPHINE (Verified Adverse Reaction, Severe, hallucinations, 10/16/18) Objective Last 24 Hour Vital Signs Date Time Temp Pulse Resp B/P (MAP) Pulse Ox O2 Delivery O2 Flow Rate FiO2 09/16/20 04:00 2.0 09/16/20 04:00 97.9 64 18 122/42 (68) 98 09/16/20 04:00 63 09/16/20 00:00 63 09/16/20 00:00 2.0 09/16/20 00:00 97.9 64 16 117/43 (67) 94 09/15/20 21:00 Nasal Cannula 2.0 09/15/20 20:00 64 09/15/20 20:00 98.3 65 18 120/45 (70) 98 09/15/20 16:00 62 09/15/20 16:00 2.0 09/15/20 16:00 97.5 62 18 134/49 (77) 97 09/15/20 12:00 98.0 61 18 122/47 (72) 98 09/15/20 12:00 2.0 09/15/20 12:00 61 09/15/20 09:00 97/35 09/15/20 09:00 62 97/35 09/15/20 09:00 Nasal Cannula 2.0 09/15/20 08:00 64 09/15/20 08:00 97.6 62 18 97/35 (55) 97 09/15/20 08:00 2.0 Intake and Output 09/15/20 09/16/20 19:00 07:00 Intake Total 420 ml 180 ml Output Total 400 ml Balance 20 ml 180 ml Intake Oral 420 ml 180 ml Output Urine Total 400 ml # Voids 3 # Bowel Movements 2 3 Laboratory Tests 09/15/20 09:55: Troponin I 0.114H 09/15/20 11:34: POC Whole Blood Glucose 103 09/15/20 15:55: POC Whole Blood Glucose [Pending] 09/15/20 18:00: Troponin I 0.129H 09/15/20 21:26: POC Whole Blood Glucose 148H 09/16/20 05:00: White Blood Count 7.7, Red Blood Count 3.25L, Hemoglobin 10.0L, Hematocrit 31.8L , Mean Corpuscular Volume 98, Mean Corpuscular Hemoglobin 30.9, Mean Corpuscular Hemoglobin Concent 31.6L, Red Cell Distribution Width 14.8, Platelet Count 286, Mean Platelet Volume 5.9L, Neutrophils (%) (Auto) 74.4, Lymphocytes (%) (Auto) 14.2L, Monocytes (%) (Auto) 7.5, Eosinophils (%) (Auto) 2.3, Basophils (%) (Auto) 1.5, Sodium Level 147H, Potassium Level 3.4L, Chloride Level 108H, Carbon Dioxide Level 34H, Anion Gap 5, Blood Urea Nitrogen 8, Creatinine 0.7, Estimat Glomerular Filtration Rate > 60, Glucose Level 106, Calcium Level 7.8L, Total Bilirubin 0.5, Aspartate Amino Transf (AST/SGOT) 19, Alanine Aminotransferase (ALT/SGPT) 18, Alkaline Phosphatase 61, Pro-B-Type Natriuretic Peptide 4772H, Total Protein 5.9L, Albumin 2.0L, Globulin 3.9, Albumin/Globulin Ratio 0.5L, Vancomycin Level Trough 5.5 09/16/20 06:19: POC Whole Blood Glucose 95 Height (Feet): 5 Height (Inches): 4.00 Weight (Pounds): 130 General Appearance: alert EENT: normal ENT inspection Neck: supple Cardiovascular: normal rate Respiratory/Chest: lungs clear Abdomen: normal bowel sounds, non tender, soft Extremities: non-tender Assessment/Plan Problem List: (1) CHF exacerbation ICD Codes: I50.9 - Heart failure, unspecified SNOMED: 020418908, [id number] (2) Pleural effusion ICD Codes: J90 - Pleural effusion, not elsewhere classified SNOMED: 84789143 (3) Alzheimer disease ICD Codes: G30.9 - Alzheimer's disease, unspecified; F02.80 - Dementia in other diseases classified elsewhere without behavioral disturbance SNOMED: 38247254 (4) Colitis ICD Codes: K52.9 - Noninfective gastroenteritis and colitis, unspecified SNOMED: 55341778 (5) Diabetes ICD Codes: E11.9 - Type 2 diabetes mellitus without complications SNOMED: 44506182 Status: stable, unchanged Assessment/Plan: no recurrent diarrhea on po Vanco on ppi diabetic control neg stool C.diff drop in H&H>>> check stool ob iron panel' cbc in am will fu Justin Kaiser MD Sep 16, 2020 07:33
[2020-09-16] MEDS: Losartan 50mg tab ORAL SCH (09:00)
[2020-09-16] MEDS: Donepezil 5mg Tab ORAL SCH (09:24)
[2020-09-16] MEDS: Vancomycin oral 125mg/2.5ml ORAL SCH ×4 (09:25→22:44)
[2020-09-16] MEDS: Eliquis 5mg tablet ORAL SCH ×2 (09:25→17:21)
[2020-09-16] MEDS: Oxybutynin 5mg tab ORAL SCH (09:25)
--- NOTE | 2020-09-16 17:16 | Cardiology Progress Note ---
Assessment/Plan Problem List: (1) Atrial fibrillation Assessment & Plan: permanent AF (2) Pulmonary hypertension Assessment & Plan: severe PH by ECHO this adm (3) Elevated troponin (4) Alzheimer disease (5) Diabetes (6) Diarrhea Status: stable, unchanged Status Narrative Mrs. Fountain is stable from a cardiac standpoint. Troponin levels are downtrending - inc on admission c/w demand ischemia / type 2 GA. She is in AF, likely permanent, with controlled ventricular rates. She has severe pulm hypertension, w/ diastolic HF Assessment/Plan Recommend lasix diuresis w/ K supplement. Will give iv lasix 20 mg in am Accurate i/os, daily wts, and followup labs, including bnp. Continue apixaban for cva prevention in af. Ventricular rates are controlled, off meds. Med management for CAD - asa, statin - not a candidate for invasive int ervention due to age and comorbidities Subjective ROS Limited/Unobtainable: Yes Subjective Cardiology for Dr. Carballo Pt alert/ very confused. Denies dyspnea or pain Objective Last 24 Hour Vital Signs Date Time Temp Pulse Resp B/P (MAP) Pulse Ox O2 Delivery O2 Flow Rate FiO2 09/16/20 16:07 99.3 60 18 110/52 (71) 97 09/16/20 16:00 96.6 65 18 142/67 (92) 96 09/16/20 12:00 68 09/16/20 12:00 2.0 09/16/20 12:00 97.5 66 18 109/45 (66) 99 09/16/20 09:00 117/46 09/16/20 09:00 69 117/46 09/16/20 09:00 2.0 09/16/20 09:00 Nasal Cannula 2.0 09/16/20 08:55 97.9 69 18 117/46 (69) 97 09/16/20 08:00 97.9 69 18 117/46 (69) 99 09/16/20 08:00 54 09/16/20 04:00 2.0 09/16/20 04:00 97.9 64 18 122/42 (68) 98 09/16/20 04:00 63 09/16/20 00:00 63 09/16/20 00:00 2.0 09/16/20 00:00 97.9 64 16 117/43 (67) 94 09/15/20 21:00 Nasal Cannula 2.0 09/15/20 20:00 64 09/15/20 20:00 98.3 65 18 120/45 (70) 98 General Appearance: WD/WN, no apparent distress, alert EENT: PERRL/EOMI Neck: supple, no JVD Rhythm: Afib Cardiovascular: normal rate, no gallop/murmur, irregularly irregular Respiratory/Chest: lungs clear Abdomen: non tender, soft Extremities: no swelling Intake and Output 09/15/20 09/16/20 19:00 07:00 Intake Total 420 ml 180 ml Output Total 400 ml Balance 20 ml 180 ml Intake Oral 420 ml 180 ml Output Urine Total 400 ml # Voids 3 # Bowel Movements 2 3 Laboratory Tests Test 09/15/20 18:00 09/15/20 21:26 09/16/20 05:00 09/16/20 06:19 Troponin I 0.129 ng/mL (0.000-0.056) POC Whole Blood Glucose 148 MG/DL (74-106) H 95 MG/DL (74-106) White Blood Count 7.7 K/UL (4.8-10.8) Red Blood Count 3.25 M/UL (4.20-5.40) L Hemoglobin 10.0 G/DL (12.0-16.0) L Hematocrit 31.8 % (37.0-47.0) L Mean Corpuscular Volume 98 FL (80-99) Mean Corpuscular Hemoglobin 30.9 PG (27.0-31.0) Mean Corpuscular Hemoglobin Concent 31.6 G/DL (32.0-36.0) L Red Cell Distribution Width 14.8 % (11.6-14.8) Platelet Count 286 K/UL (150-450) Mean Platelet Volume 5.9 FL (6.5-10.1) L Neutrophils (%) (Auto) 74.4 % (45.0-75.0) Lymphocytes (%) (Auto) 14.2 % (20.0-45.0) L Monocytes (%) (Auto) 7.5 % (1.0-10.0) Eosinophils (%) (Auto) 2.3 % (0.0-3.0) Basophils (%) (Auto) 1.5 % (0.0-2.0) Sodium Level 147 MMOL/L (136-145) H Potassium Level 3.4 MMOL/L (3.5-5.1) L Chloride Level 108 MMOL/L (98-107) H Carbon Dioxide Level 34 MMOL/L (21-32) H Anion Gap 5 mmol/L (5-15) Blood Urea Nitrogen 8 mg/dL (7-18) Creatinine 0.7 MG/DL (0.55-1.30) Estimat Glomerular Filtration Rate > 60 mL/min (>60) Glucose Level 106 MG/DL (74-106) Calcium Level 7.8 MG/DL (8.5-10.1) L Total Bilirubin 0.5 MG/DL (0.2-1.0) Aspartate Amino Transf (AST/SGOT) 19 U/L (15-37) Alanine Aminotransferase (ALT/SGPT) 18 U/L (12-78) Alkaline Phosphatase 61 U/L (46-116) Pro-B-Type Natriuretic Peptide 4772 pg/mL (0-125) H Total Protein 5.9 G/DL (6.4-8.2) L Albumin 2.0 G/DL (3.4-5.0) L Globulin 3.9 g/dL Albumin/Globulin Ratio 0.5 (1.0-2.7) L Vancomycin Level Trough 5.5 ug/mL (5.0-12.0) Test 09/16/20 11:44 09/16/20 13:00 09/16/20 16:54 POC Whole Blood Glucose 139 MG/DL (74-106) H 176 MG/DL (74-106) H Stool Occult Blood Pending Microbiology Date/Time Source Procedure Growth Status 09/15/20 11:10 Stool Clostridium difficile Toxin Assay - Final Complete Divya Snell MD Sep 16, 2020 17:16
[2020-09-16] MEDS ORDERED: Vancomycin 750 MG in NS 275 ML IVPB SCH ×5 (18:00→22:00)
--- NOTE | 2020-09-16 20:35 | Pulmonology Progress Note ---
Subjective ROS Limited/Unobtainable: Yes Constitutional: Denies: fever Psychiatric: Reports: other - restrained by mittens Allergies: Coded Allergies: ASPIRIN (Verified Allergy, Unknown, 07/29/18) HYDROMORPHONE (Verified Adverse Reaction, Severe, Hallucinations, 10/16/18) LORAZEPAM (Verified Adverse Reaction, Severe, Altered Mental Status, 10/16/18) per Laureen matias, patient had afib MORPHINE (Verified Adverse Reaction, Severe, hallucinations, 10/16/18) Objective Last 24 Hour Vital Signs Date Time Temp Pulse Resp B/P (MAP) Pulse Ox O2 Delivery O2 Flow Rate FiO2 09/16/20 20:00 99.1 59 18 119/46 (70) 96 09/16/20 16:07 99.3 60 18 110/52 (71) 97 09/16/20 16:00 96.6 65 18 142/67 (92) 96 09/16/20 16:00 2.0 09/16/20 16:00 68 09/16/20 12:00 68 09/16/20 12:00 2.0 09/16/20 12:00 97.5 66 18 109/45 (66) 99 09/16/20 09:00 117/46 09/16/20 09:00 69 117/46 09/16/20 09:00 2.0 09/16/20 09:00 Nasal Cannula 2.0 09/16/20 08:55 97.9 69 18 117/46 (69) 97 09/16/20 08:00 97.9 69 18 117/46 (69) 99 09/16/20 08:00 54 09/16/20 04:00 2.0 09/16/20 04:00 97.9 64 18 122/42 (68) 98 09/16/20 04:00 63 09/16/20 00:00 63 09/16/20 00:00 2.0 09/16/20 00:00 97.9 64 16 117/43 (67) 94 09/15/20 21:00 Nasal Cannula 2.0 Intake and Output 09/15/20 09/16/20 19:00 07:00 Intake Total 420 ml 180 ml Output Total 400 ml Balance 20 ml 180 ml Intake Oral 420 ml 180 ml Output Urine Total 400 ml # Voids 3 # Bowel Movements 2 3 Microbiology Date/Time Source Procedure Growth Status 09/15/20 11:10 Stool Clostridium difficile Toxin Assay - Final Complete Laboratory Tests 09/15/20 21:26: POC Whole Blood Glucose 148H 09/16/20 05:00: White Blood Count 7.7, Red Blood Count 3.25L, Hemoglobin 10.0L, Hematocrit 31.8L , Mean Corpuscular Volume 98, Mean Corpuscular Hemoglobin 30.9, Mean Corpuscular Hemoglobin Concent 31.6L, Red Cell Distribution Width 14.8, Platelet Count 286, Mean Platelet Volume 5.9L, Neutrophils (%) (Auto) 74.4, Lymphocytes (%) (Auto) 14.2L, Monocytes (%) (Auto) 7.5, Eosinophils (%) (Auto) 2.3, Basophils (%) (Auto) 1.5, Sodium Level 147H, Potassium Level 3.4L, Chloride Level 108H, Carbon Dioxide Level 34H, Anion Gap 5, Blood Urea Nitrogen 8, Creatinine 0.7, Estimat Glomerular Filtration Rate > 60, Glucose Level 106, Calcium Level 7.8L, Total Bilirubin 0.5, Aspartate Amino Transf (AST/SGOT) 19, Alanine Aminotransferase (ALT/SGPT) 18, Alkaline Phosphatase 61, Pro-B-Type Natriuretic Peptide 4772H, Total Protein 5.9L, Albumin 2.0L, Globulin 3.9, Albumin/Globulin Ratio 0.5L, Vancomycin Level Trough 5.5 09/16/20 06:19: POC Whole Blood Glucose 95 09/16/20 11:44: POC Whole Blood Glucose 139H 09/16/20 13:00: Stool Occult Blood [Pending] 09/16/20 16:54: POC Whole Blood Glucose 176H Current Medications Medications (Trade) Dose Ordered Sig/Arielle Route PRN Reason Start Time Stop Time Status Last Admin Dose Admin Acetaminophen (Tylenol) 650 mg Q4H PRN ORAL MILD/TEMP 09/12/20 01:30 10/12/20 01:29 Amlodipine Besylate (Norvasc) 2.5 mg DAILY ORAL 09/12/20 09:00 10/12/20 08:59 09/14/20 10:05 Apixaban (Eliquis) 5 mg BID ORAL 09/13/20 18:00 12/12/20 17:59 09/16/20 17:21 Atorvastatin Calcium (Lipitor) 10 mg BEDTIME ORAL 09/12/20 21:00 12/11/20 20:59 09/16/20 20:30 Dextrose (Dextrose 50%) 25 ml Q30M PRN IV Hypoglycemia 09/12/20 01:00 12/11/20 00:59 Dextrose (Dextrose 50%) 50 ml Q30M PRN IV Hypoglycemia 09/12/20 01:00 12/11/20 00:59 Donepezil HCl (Aricept) 5 mg DAILY ORAL 09/12/20 09:00 10/12/20 08:59 09/16/20 09:24 Furosemide (Lasix) 20 mg ONCE IV 09/17/20 08:00 09/17/20 10:00 Gabapentin (Neurontin) 300 mg FOUR TIMES A DAY ORAL 09/12/20 13:00 10/12/20 12:59 09/16/20 20:30 Insulin Aspart (NovoLOG) BEFORE MEALS AND HS SUBQ 09/12/20 06:30 12/11/20 06:29 09/16/20 20:31 Losartan Potassium (Cozaar) 100 mg DAILY ORAL 09/12/20 09:00 10/12/20 08:59 09/14/20 10:03 Metformin HCl (Glucophage) 500 mg ACBREAKFAST ORAL 09/13/20 06:30 10/13/20 06:29 09/16/20 06:30 Multivitamins (Multivitamins) 1 tab DAILY ORAL 09/12/20 09:00 10/12/20 08:59 09/16/20 09:25 Oxybutynin Chloride (Ditropan) 5 mg DAILY ORAL 09/12/20 09:00 10/12/20 08:59 09/16/20 09:25 Pantoprazole (Protonix) 40 mg DAILY ORAL 09/12/20 09:00 10/12/20 08:59 09/16/20 09:25 Piperacillin Sod/ Tazobactam Sod 3.375 gm/Sodium Chloride 110 ml @ 27.5 mls/hr Q8H IVPB 09/16/20 20:00 09/23/20 19:59 09/16/20 20:30 Vancomycin HCl (Firvanq) 125 mg FOUR TIMES A DAY ORAL 09/14/20 18:00 09/21/20 17:59 09/16/20 17:21 Vancomycin HCl (Vanco pharmacy to dose) 1 ea DAILY PRN MISC Per rx protocol 09/12/20 01:00 10/12/20 00:59 Vancomycin HCl 750 mg/Sodium Chloride 275 ml @ 183.333 mls/hr Q12H IVPB 09/16/20 18:00 09/21/20 17:59 Assessment/Plan Assessment/Plan Pulmonary Progress Note Subjective Allergies: Coded Allergies: ASPIRIN (Verified Allergy, Unknown, 07/29/18) HYDROMORPHONE (Verified Adverse Reaction, Severe, Hallucinations, 10/16/18) LORAZEPAM (Verified Adverse Reaction, Severe, Altered Mental Status, 10/16/18) per Laureen matias, patient had afib MORPHINE (Verified Adverse Reaction, Severe, hallucinations, 10/16/18) Subjective care noted off isolation remains in afib Objective Vital Signs noted Laboratory Tests noted Height (Feet): 5 Height (Inches): 4.00 Weight (Pounds): 130 Objective WDWN NAD reduced breath sounds bilaterally without rhonchi or wheeze [id number] without MRG NABS nontender no HSM no CC mild nonfocal confused on oxygen Assessment/Plan Assessment/Plan: IMPRESSION: 1. Abnormal x-ray, possibly due to underlying pulmonary edema versus atypical pneumonia. 2. History of diarrhea and constipation. 3. Possible sepsis. 4. Elevated troponin. 5. Possible non-STEMI. 6. Afib 7. Hypercholesterolemia. 8. possible colitis - GI following RECOMMENDATIONS: 1. Empiric antibiotics per ID 2. monitor troponins- cards noted 3. Lasix with elevated BNP 4. Monitor clinically in telemetry. 5. GI evaluation called 6. Optimize care and per daughter, would like SNF placement 7. Monitor labs full code impression, plan, and exam edited and reviewed in detail care discussed with Iftikhar Michaud MD Sep 16, 2020 20:34
[2020-09-17] VITALS (8 sets, daily range): BP systolic 120–151; BP diastolic 38–62
[2020-09-17] MEDS: Piperacillin/Tazobactam 3.375 GM in NS 110 ML IVPB SCH ×3 (03:30→21:49)
[2020-09-17] MEDS: metFORMIN 500mg tab ORAL SCH (05:59)
[2020-09-17] MEDS: NovoLOG Insulin Flexpen SUBQ SCH ×4 (06:00→21:59)
[2020-09-17] MEDS: Losartan 50mg tab ORAL SCH (08:34)
[2020-09-17] MEDS: Donepezil 5mg Tab ORAL SCH (08:34)
[2020-09-17] MEDS: Eliquis 5mg tablet ORAL SCH ×2 (08:35→18:09)
[2020-09-17] MEDS: Oxybutynin 5mg tab ORAL SCH (08:35)
[2020-09-17] MEDS ORDERED: Vancomycin 750 MG in NS 275 ML IVPB SCH (09:00)
[2020-09-17 09:08] LABS: HEMATOCRIT 33.8 % (37.0-47.0); HEMOGLOBIN 10.6 G/DL (12.0-16.0); MEAN CORPUSCULAR VOLUME 100 FL (80-99); PLATELET COUNT 323 K/UL (150-450); RED CELL DISTRIBUTION WIDTH 14.8 % (11.6-14.8); WHITE BLOOD COUNT 12.9 K/UL (4.8-10.8)
[2020-09-17] MEDS: Vancomycin oral 125mg/2.5ml ORAL SCH (09:25)
[2020-09-17 09:49] LABS: % IRON SATURATION 10 % (15-50); IRON 16 ug/dL (50-175); TOTAL IRON BINDING CAPACITY 167 ug/dL (250-450)
[2020-09-17] MEDS ORDERED: Albuterol ud Inhalation HHN PRN (10:45)
--- NOTE | 2020-09-17 11:01 | Infectious Diseases Prog Note ---
Assessment/Plan Assessment/Plan A: 1. Possible pneumonia. COVID-19 test is negative x2. 2. Congestive heart failure. 3. Diabetes. 4. Hypertension. 5. Diarrhea, C.difficile negative 6. Alzheimer disease PLAN: 1. Discontinue IV & PO vancomycin 2. Continue Zosyn. 3. We will follow up cultures and adjust antibiotics accordingly. Subjective ROS Limited/Unobtainable: Yes Respiratory: Reports: shortness of breath Cardiovascular: Reports: no symptoms Allergies: Coded Allergies: ASPIRIN (Verified Allergy, Unknown, 07/29/18) HYDROMORPHONE (Verified Adverse Reaction, Severe, Hallucinations, 10/16/18) LORAZEPAM (Verified Adverse Reaction, Severe, Altered Mental Status, 10/16/18) per Laureen matias, patient had afib MORPHINE (Verified Adverse Reaction, Severe, hallucinations, 10/16/18) Objective Last 24 Hour Vital Signs Date Time Temp Pulse Resp B/P (MAP) Pulse Ox O2 Delivery O2 Flow Rate FiO2 09/17/20 09:00 Nasal Cannula 2.0 09/17/20 08:35 72 134/45 09/17/20 08:34 134/45 09/17/20 08:05 98.2 72 18 134/45 (74) 95 09/17/20 08:00 69 09/17/20 08:00 2.0 09/17/20 04:00 73 09/17/20 04:00 98.1 78 20 151/62 (91) 96 09/17/20 04:00 2.0 09/17/20 00:00 99.1 70 18 128/51 (76) 96 09/17/20 00:00 67 09/16/20 21:00 Nasal Cannula 2.0 09/16/20 20:00 2.0 09/16/20 20:00 99.1 59 18 119/46 (70) 96 09/16/20 20:00 68 09/16/20 16:07 99.3 60 18 110/52 (71) 97 09/16/20 16:00 96.6 65 18 142/67 (92) 96 09/16/20 16:00 2.0 09/16/20 16:00 68 09/16/20 12:00 68 09/16/20 12:00 2.0 09/16/20 12:00 97.5 66 18 109/45 (66) 99 Height (Feet): 5 Height (Inches): 4.00 Weight (Pounds): 130 HEENT: mucous membranes moist Respiratory/Chest: lungs clear Cardiovascular: normal rate Abdomen: soft, non tender Extremities: no edema Neurologic/Psychiatric: alert, responsive Microbiology Date/Time Source Procedure Growth Status 09/15/20 11:10 Stool Clostridium difficile Toxin Assay - Final Complete Laboratory Tests Test 09/16/20 11:44 09/16/20 13:00 09/16/20 16:54 09/17/20 05:41 POC Whole Blood Glucose 139 MG/DL (74-106) H 176 MG/DL (74-106) H 163 MG/DL (74-106) H Stool Occult Blood Pending Test 09/17/20 08:45 White Blood Count 12.9 K/UL (4.8-10.8) #H Red Blood Count 3.40 M/UL (4.20-5.40) L Hemoglobin 10.6 G/DL (12.0-16.0) L Hematocrit 33.8 % (37.0-47.0) L Mean Corpuscular Volume 100 FL (80-99) H Mean Corpuscular Hemoglobin 31.1 PG (27.0-31.0) H Mean Corpuscular Hemoglobin Concent 31.2 G/DL (32.0-36.0) L Red Cell Distribution Width 14.8 % (11.6-14.8) Platelet Count 323 K/UL (150-450) Mean Platelet Volume 6.0 FL (6.5-10.1) L Neutrophils (%) (Auto) % (45.0-75.0) Lymphocytes (%) (Auto) % (20.0-45.0) Monocytes (%) (Auto) % (1.0-10.0) Eosinophils (%) (Auto) % (0.0-3.0) Basophils (%) (Auto) % (0.0-2.0) Differential Total Cells Counted 100 Neutrophils % (Manual) 73 % (45-75) Lymphocytes % (Manual) 17 % (20-45) L Monocytes % (Manual) 10 % (1-10) Eosinophils % (Manual) 0 % (0-3) Basophils % (Manual) 0 % (0-2) Band Neutrophils 0 % (0-8) Platelet Estimate Adequate Platelet Morphology Normal Hypochromasia 1+ Anisocytosis 1+ Macrocytosis 1+ Iron Level 16 ug/dL (50-175) L Total Iron Binding Capacity 167 ug/dL (250-450) L Percent Iron Saturation 10 % (15-50) L Unsaturated Iron Binding 151 ug/dL (112-346) Current Medications Medications (Trade) Dose Ordered Sig/Arielle Route PRN Reason Start Time Stop Time Status Last Admin Dose Admin Acetaminophen (Tylenol) 650 mg Q4H PRN ORAL MILD/TEMP 09/12/20 01:30 10/12/20 01:29 Albuterol Sulfate (Proventil) 2.5 mg Q4HRT PRN HHN Shortness of breath 09/17/20 10:45 09/22/20 10:44 UNV Amlodipine Besylate (Norvasc) 2.5 mg DAILY ORAL 09/12/20 09:00 10/12/20 08:59 09/17/20 08:35 Apixaban (Eliquis) 5 mg BID ORAL 09/13/20 18:00 12/12/20 17:59 09/17/20 08:35 Atorvastatin Calcium (Lipitor) 10 mg BEDTIME ORAL 09/12/20 21:00 12/11/20 20:59 09/16/20 20:30 Dextrose (Dextrose 50%) 25 ml Q30M PRN IV Hypoglycemia 09/12/20 01:00 12/11/20 00:59 Dextrose (Dextrose 50%) 50 ml Q30M PRN IV Hypoglycemia 09/12/20 01:00 12/11/20 00:59 Donepezil HCl (Aricept) 5 mg DAILY ORAL 09/12/20 09:00 10/12/20 08:59 09/17/20 08:34 Gabapentin (Neurontin) 300 mg FOUR TIMES A DAY ORAL 09/12/20 13:00 10/12/20 12:59 09/17/20 08:35 Insulin Aspart (NovoLOG) BEFORE MEALS AND HS SUBQ 09/12/20 06:30 12/11/20 06:29 09/17/20 06:00 Loperamide HCl (Imodium) 2 mg Q12HR PRN ORAL Diarrhea 09/17/20 10:30 10/17/20 10:29 Losartan Potassium (Cozaar) 100 mg DAILY ORAL 09/12/20 09:00 10/12/20 08:59 09/17/20 08:34 Metformin HCl (Glucophage) 500 mg ACBREAKFAST ORAL 09/13/20 06:30 10/13/20 06:29 09/17/20 05:59 Multivitamins (Multivitamins) 1 tab DAILY ORAL 09/12/20 09:00 10/12/20 08:59 09/17/20 08:35 Oxybutynin Chloride (Ditropan) 5 mg DAILY ORAL 09/12/20 09:00 10/12/20 08:59 09/17/20 08:35 Pantoprazole (Protonix) 40 mg DAILY ORAL 09/12/20 09:00 10/12/20 08:59 09/17/20 08:35 Piperacillin Sod/ Tazobactam Sod 3.375 gm/Sodium Chloride 110 ml @ 27.5 mls/hr Q8H IVPB 09/16/20 20:00 09/23/20 19:59 09/17/20 03:30 Vancomycin HCl (Firvanq) 125 mg FOUR TIMES A DAY ORAL 09/14/20 18:00 09/21/20 17:59 09/17/20 09:25 Vancomycin HCl (Vanco pharmacy to dose) 1 ea DAILY PRN MISC Per rx protocol 09/12/20 01:00 10/12/20 00:59 Vancomycin HCl 750 mg/Sodium Chloride 275 ml @ 183.333 mls/hr Q12H IVPB 09/17/20 09:00 09/22/20 08:59 09/17/20 09:25 Santos Amezcua MD Sep 17, 2020 11:01
--- NOTE | 2020-09-17 15:54 | Diagnostic Imaging Report ---
Indication: Shortness of breath Technique: One view of the chest Comparison: 09/13/2020 Findings: Bilateral infiltrates are unchanged. The heart is upper limits normal in size. Impression: Unchanged, over 4 days, findings as above.
--- NOTE | 2020-09-17 16:07 | General Progress Note ---
Subjective ROS Limited/Unobtainable: Yes Allergies: Coded Allergies: ASPIRIN (Verified Allergy, Unknown, 07/29/18) HYDROMORPHONE (Verified Adverse Reaction, Severe, Hallucinations, 10/16/18) LORAZEPAM (Verified Adverse Reaction, Severe, Altered Mental Status, 10/16/18) per Laureen matias, patient had afib MORPHINE (Verified Adverse Reaction, Severe, hallucinations, 10/16/18) Subjective care noted off isolation comfortable Objective Last 24 Hour Vital Signs Date Time Temp Pulse Resp B/P (MAP) Pulse Ox O2 Delivery O2 Flow Rate FiO2 09/17/20 15:57 98.2 60 18 125/44 (71) 96 09/17/20 15:35 2.0 09/17/20 15:33 98.2 60 18 125/44 (71) 96 09/17/20 12:00 2.0 09/17/20 12:00 69 09/17/20 12:00 97.7 82 18 127/49 (75) 99 09/17/20 11:21 94 Nasal Cannula 2.0 28 09/17/20 11:21 76 18 98 Nasal Cannula 2.0 28 73 18 94 09/17/20 09:00 Nasal Cannula 2.0 09/17/20 08:35 72 134/45 09/17/20 08:34 134/45 09/17/20 08:05 98.2 72 18 134/45 (74) 95 09/17/20 08:00 69 09/17/20 08:00 2.0 09/17/20 04:00 73 09/17/20 04:00 98.1 78 20 151/62 (91) 96 09/17/20 04:00 2.0 09/17/20 00:00 99.1 70 18 128/51 (76) 96 09/17/20 00:00 67 09/16/20 21:00 Nasal Cannula 2.0 09/16/20 20:00 2.0 09/16/20 20:00 99.1 59 18 119/46 (70) 96 09/16/20 20:00 68 09/16/20 16:07 99.3 60 18 110/52 (71) 97 Intake and Output 09/16/20 09/17/20 18:59 06:59 Intake Total 800 ml 300 ml Balance 800 ml 300 ml Intake Oral 800 ml 300 ml # Voids 6 3 # Bowel Movements 5 Laboratory Tests 09/16/20 16:54: POC Whole Blood Glucose 176H 09/17/20 05:41: POC Whole Blood Glucose 163H 09/17/20 08:45: White Blood Count 12.9#H, Red Blood Count 3.40L, Hemoglobin 10.6L, Hematocrit 3 3.8L, Mean Corpuscular Volume 100H, Mean Corpuscular Hemoglobin 31.1H, Mean Corpuscular Hemoglobin Concent 31.2L, Red Cell Distribution Width 14.8, Platelet Count 323, Mean Platelet Volume 6.0L, Neutrophils (%) (Auto) , Lymphocytes (%) (Auto) , Monocytes (%) (Auto) , Eosinophils (%) (Auto) , Basophils (%) (Auto) , Differential Total Cells Counted 100, Neutrophils % (Manual) 73, Lymphocytes % (Manual) 17L, Monocytes % (Manual) 10, Eosinophils % (Manual) 0, Basophils % (Manual) 0, Band Neutrophils 0, Platelet Estimate Adequate, Platelet Morphology Normal, Hypochromasia 1+, Anisocytosis 1+, Macrocytosis 1+, Iron Level 16L, Total Iron Binding Capacity 167L, Percent Iron Saturation 10L, Unsaturated Iron Binding 151 09/17/20 11:42: POC Whole Blood Glucose [Pending] Height (Feet): 5 Height (Inches): 4.00 Weight (Pounds): 130 Objective WDWN NAD reduced breath sounds bilaterally without rhonchi or wheeze [id number] without MRG NABS nontender no HSM no CC mild nonfocal confused on oxygen Assessment/Plan Status: stable, unchanged Assessment/Plan: IMPRESSION: 1. Abnormal x-ray, possibly due to underlying pulmonary edema versus atypical pneumonia. 2. History of diarrhea and constipation. 3. Possible sepsis. 4. Elevated troponin. 5. Possible non-STEMI. 6. Hypercholesterolemia. 7. possible colitis RECOMMENDATIONS: 1. Empiric antibiotics and ID followup 2. monitor troponins- cards noted 3. Lasix with elevated BNP 4. Monitor clinically in telemetry. 5. GI evaluation discussed 6. Optimize and plan to dc to snf when able full code impression, plan, and exam edited and reviewed in detail care discussed with Rodney Liang MD Sep 17, 2020 16:07
[2020-09-17] MEDS ORDERED: Tubing IV Secondary IV ONE (17:31)
[2020-09-17] MEDS ORDERED: NS 275ml ONE (17:31)
--- NOTE | 2020-09-17 20:54 | General Progress Note ---
Subjective Allergies: Coded Allergies: ASPIRIN (Verified Allergy, Unknown, 07/29/18) HYDROMORPHONE (Verified Adverse Reaction, Severe, Hallucinations, 10/16/18) LORAZEPAM (Verified Adverse Reaction, Severe, Altered Mental Status, 10/16/18) per Laureen matias, patient had afib MORPHINE (Verified Adverse Reaction, Severe, hallucinations, 10/16/18) Subjective d/w RN still with episodes of diarrhea C Dff (-) low dose antidiarrheal may needs flex sig with Bx check stool Cx O&P Objective Last 24 Hour Vital Signs Date Time Temp Pulse Resp B/P (MAP) Pulse Ox O2 Delivery O2 Flow Rate FiO2 09/17/20 16:11 98.2 63 19 120/54 (76) 93 09/17/20 16:00 51 09/17/20 15:57 98.2 60 18 125/44 (71) 96 09/17/20 15:35 2.0 09/17/20 15:33 98.2 60 18 125/44 (71) 96 09/17/20 12:00 2.0 09/17/20 12:00 69 09/17/20 12:00 97.7 82 18 127/49 (75) 99 09/17/20 11:21 94 Nasal Cannula 2.0 28 09/17/20 11:21 76 18 98 Nasal Cannula 2.0 28 73 18 94 09/17/20 09:00 Nasal Cannula 2.0 09/17/20 08:35 72 134/45 09/17/20 08:34 134/45 09/17/20 08:05 98.2 72 18 134/45 (74) 95 09/17/20 08:00 69 09/17/20 08:00 2.0 09/17/20 04:00 73 09/17/20 04:00 98.1 78 20 151/62 (91) 96 09/17/20 04:00 2.0 09/17/20 00:00 99.1 70 18 128/51 (76) 96 09/17/20 00:00 67 09/16/20 21:00 Nasal Cannula 2.0 Intake and Output 09/16/20 09/17/20 19:00 07:00 Intake Total 800 ml 300 ml Balance 800 ml 300 ml Intake Oral 800 ml 300 ml # Voids 6 3 # Bowel Movements 5 Laboratory Tests 09/17/20 05:41: POC Whole Blood Glucose 163H 09/17/20 08:45: White Blood Count 12.9#H, Red Blood Count 3.40L, Hemoglobin 10.6L, Hematocrit 33.8L, Mean Corpuscular Volume 100H, Mean Corpuscular Hemoglobin 31.1H, Mean Corpuscular Hemoglobin Concent 31.2L, Red Cell Distribution Width 14.8, Platelet Count 323, Mean Platelet Volume 6.0L, Neutrophils (%) (Auto) , Lymphocytes (%) (Auto) , Monocytes (%) (Auto) , Eosinophils (%) (Auto) , Basophils (%) (Auto) , Differential Total Cells Counted 100, Neutrophils % (Manual) 73, Lymphocytes % (Manual) 17L, Monocytes % (Manual) 10, Eosinophils % (Manual) 0, Basophils % (Manual) 0, Band Neutrophils 0, Platelet Estimate Adequate, Platelet Morphology Normal, Hypochromasia 1+, Anisocytosis 1+, Macrocytosis 1+, Iron Level 16L, Total Iron Binding Capacity 167L, Percent Iron Saturation 10L, Unsaturated Iron Binding 151 09/17/20 11:42: POC Whole Blood Glucose [Pending] 09/17/20 16:31: POC Whole Blood Glucose 176H Height (Feet): 5 Height (Inches): 4.00 Weight (Pounds): 130 Assessment/Plan Status: stable, unchanged Assessment/Plan: Assessment - Diarrhea - Thickened (L) colon, r/o C diff - PNA - OBS - CHF - Atrial fibrillatin - Pulmonary HTN Recommendations - await stool for C diff (discussed with RN) - Begin PO vancomycin until results of stool obtained - Push po - Elevate HOB Will follow Thank you MD Joseph Bailey Payman MD Sep 17, 2020 20:54
[2020-09-18 00:54] VITALS: BP 119/46
--- NOTE | 2020-09-18 01:25 | Cardiology Progress Note ---
Subjective DATE OF SERVICE: Sep 17, 2020 No pain. Still with SOB. Monitor: Atrial fibrillation - rate controlled. 2D Echo: LVEF normal, Severe pulmonary hypertension, Mod TR, Mild MR. Objective Last 24 Hour Vital Signs Date Time Temp Pulse Resp B/P (MAP) Pulse Ox O2 Delivery O2 Flow Rate FiO2 09/18/20 00:54 98.1 58 20 119/46 (70) 99 09/18/20 00:24 Nasal Cannula 2.0 09/17/20 21:00 Nasal Cannula 2.0 09/17/20 20:41 96 Nasal Cannula 2.0 28 09/17/20 20:00 98.1 59 20 121/38 (65) 93 09/17/20 20:00 52 09/17/20 16:11 98.2 63 19 120/54 (76) 93 09/17/20 16:00 51 09/17/20 15:57 98.2 60 18 125/44 (71) 96 09/17/20 15:35 2.0 09/17/20 15:33 98.2 60 18 125/44 (71) 96 09/17/20 12:00 2.0 09/17/20 12:00 69 09/17/20 12:00 97.7 82 18 127/49 (75) 99 09/17/20 11:21 94 Nasal Cannula 2.0 28 09/17/20 11:21 76 18 98 Nasal Cannula 2.0 28 73 18 94 09/17/20 09:00 Nasal Cannula 2.0 09/17/20 08:35 72 134/45 09/17/20 08:34 134/45 09/17/20 08:05 98.2 72 18 134/45 (74) 95 09/17/20 08:00 69 09/17/20 08:00 2.0 09/17/20 04:00 73 09/17/20 04:00 98.1 78 20 151/62 (91) 96 09/17/20 04:00 2.0 HEENT: normal ENT inspection RHYTHM: Afib LUNGS: diminished breath sounds, bilateral rhonchi CARDIAC: normal S1 and S2, irregularly irregular, bradycardia ABDOMEN: normal bowel sounds, non tender, soft EXTREMITIES: non-tender, normal inspection, trace edema Laboratory Tests Test 09/17/20 05:41 09/17/20 08:45 09/17/20 11:42 09/17/20 16:31 POC Whole Blood Glucose 163 MG/DL (74-106) H Pending 176 MG/DL (74-106) H White Blood Count 12.9 K/UL (4.8-10.8) #H Red Blood Count 3.40 M/UL (4.20-5.40) L Hemoglobin 10.6 G/DL (12.0-16.0) L Hematocrit 33.8 % (37.0-47.0) L Mean Corpuscular Volume 100 FL (80-99) H Mean Corpuscular Hemoglobin 31.1 PG (27.0-31.0) H Mean Corpuscular Hemoglobin Concent 31.2 G/DL (32.0-36.0) L Red Cell Distribution Width 14.8 % (11.6-14.8) Platelet Count 323 K/UL (150-450) Mean Platelet Volume 6.0 FL (6.5-10.1) L Neutrophils (%) (Auto) % (45.0-75.0) Lymphocytes (%) (Auto) % (20.0-45.0) Monocytes (%) (Auto) % (1.0-10.0) Eosinophils (%) (Auto) % (0.0-3.0) Basophils (%) (Auto) % (0.0-2.0) Differential Total Cells Counted 100 Neutrophils % (Manual) 73 % (45-75) Lymphocytes % (Manual) 17 % (20-45) L Monocytes % (Manual) 10 % (1-10) Eosinophils % (Manual) 0 % (0-3) Basophils % (Manual) 0 % (0-2) Band Neutrophils 0 % (0-8) Platelet Estimate Adequate Platelet Morphology Normal Hypochromasia 1+ Anisocytosis 1+ Macrocytosis 1+ Iron Level 16 ug/dL (50-175) L Total Iron Binding Capacity 167 ug/dL (250-450) L Percent Iron Saturation 10 % (15-50) L Unsaturated Iron Binding 151 ug/dL (112-346) Test 09/17/20 21:45 POC Whole Blood Glucose 142 MG/DL (74-106) H Microbiology Date/Time Source Procedure Growth Status 09/15/20 11:10 Stool Clostridium difficile Toxin Assay - Final Complete Assessment/Plan Assessment/Plan Chronic atrial fibrillation - rate controlled, trending slow-normal range Ac/chronic diastolic CHF Severe pulmonary hypertension NSTE myocardial infarction precipitated by severe respiratory distress COPD exacerbation with hypoxia NIDDM Hypertension - now with low-normal BP range. Dehydration/hypernatremia DC amlodipine due to low-normal BP range; monitor BP parameters Full anticoagulation with apixaban Diuresis based on clinical parameters Monitor acid-base parameters Steroid taper per pulmonary Continue cardiac monitoring Follow up lytes Free water replacement Iftikhar Carballo MD Sep 18, 2020 01:25
[2020-09-18 04:00] VITALS: BP 143/55
[2020-09-18] MEDS: Piperacillin/Tazobactam 3.375 GM in NS 110 ML IVPB SCH (04:00)
[2020-09-18] MEDS: NovoLOG Insulin Flexpen SUBQ SCH ×4 (05:49→22:08)
[2020-09-18] MEDS: metFORMIN 500mg tab ORAL SCH (06:29)
--- NOTE | 2020-09-18 07:56 | General Progress Note ---
Subjective ROS Limited/Unobtainable: Yes Allergies: Coded Allergies: ASPIRIN (Verified Allergy, Unknown, 07/29/18) HYDROMORPHONE (Verified Adverse Reaction, Severe, Hallucinations, 10/16/18) LORAZEPAM (Verified Adverse Reaction, Severe, Altered Mental Status, 10/16/18) per Laureen matias, patient had afib MORPHINE (Verified Adverse Reaction, Severe, hallucinations, 10/16/18) Subjective care noted off isolation comfortable Objective Last 24 Hour Vital Signs Date Time Temp Pulse Resp B/P (MAP) Pulse Ox O2 Delivery O2 Flow Rate FiO2 09/18/20 04:00 62 09/18/20 04:00 98.4 83 20 143/55 (84) 99 09/18/20 00:54 98.1 58 20 119/46 (70) 99 09/18/20 00:24 Nasal Cannula 2.0 09/17/20 21:00 Nasal Cannula 2.0 09/17/20 20:41 96 Nasal Cannula 2.0 28 09/17/20 20:00 98.1 59 20 121/38 (65) 93 09/17/20 20:00 52 09/17/20 16:11 98.2 63 19 120/54 (76) 93 09/17/20 16:00 51 09/17/20 15:57 98.2 60 18 125/44 (71) 96 09/17/20 15:35 2.0 09/17/20 15:33 98.2 60 18 125/44 (71) 96 09/17/20 12:00 2.0 09/17/20 12:00 69 09/17/20 12:00 97.7 82 18 127/49 (75) 99 09/17/20 11:21 94 Nasal Cannula 2.0 28 09/17/20 11:21 76 18 98 Nasal Cannula 2.0 28 73 18 94 09/17/20 09:00 Nasal Cannula 2.0 09/17/20 08:35 72 134/45 09/17/20 08:34 134/45 09/17/20 08:05 98.2 72 18 134/45 (74) 95 09/17/20 08:00 69 09/17/20 08:00 2.0 Intake and Output 09/17/20 09/18/20 19:00 07:00 Intake Total 360 ml Balance 360 ml Intake Oral 360 ml # Voids 3 2 # Bowel Movements 3 Laboratory Tests 09/17/20 08:45: White Blood Count 12.9#H, Red Blood Count 3.40L, Hemoglobin 10.6L, Hematocrit 33.8L, Mean Corpuscular Volume 100H, Mean Corpuscular Hemoglobin 31.1H, Mean Corpuscular Hemoglobin Concent 31.2L, Red Cell Distribution Width 14.8, Platelet Count 323, Mean Platelet Volume 6.0L, Neutrophils (%) (Auto) , Lymphocytes (%) (Auto) , Monocytes (%) (Auto) , Eosinophils (%) (Auto) , Basophils (%) (Auto) , Differential Total Cells Counted 100, Neutrophils % (Manual) 73, Lymphocytes % (Manual) 17L, Monocytes % (Manual) 10, Eosinophils % (Manual) 0, Basophils % ( Manual) 0, Band Neutrophils 0, Platelet Estimate Adequate, Platelet Morphology Normal, Hypochromasia 1+, Anisocytosis 1+, Macrocytosis 1+, Iron Level 16L, Total Iron Binding Capacity 167L, Percent Iron Saturation 10L, Unsaturated Iron Binding 151 09/17/20 11:42: POC Whole Blood Glucose [Pending] 09/17/20 16:31: POC Whole Blood Glucose 176H 09/17/20 21:45: POC Whole Blood Glucose 142H 09/18/20 05:45: POC Whole Blood Glucose 128H Height (Feet): 5 Height (Inches): 4.00 Weight (Pounds): 130 Objective WDWN NAD reduced breath sounds bilaterally without rhonchi or wheeze [id number] without MRG NABS nontender no HSM no CC mild nonfocal confused on oxygen Assessment/Plan Status: stable, unchanged Assessment/Plan: IMPRESSION: 1. Abnormal x-ray, possibly due to underlying pulmonary edema versus atypical pneumonia. 2. History of diarrhea and constipation. 3. Possible sepsis. 4. Elevated troponin. 5. Possible non-STEMI. 6. Hypercholesterolemia. 7. possible colitis RECOMMENDATIONS: 1. Empiric antibiotics and ID followup 2. monitor troponins- cards noted 3. Lasix with elevated BNP 4. Monitor clinically in telemetry. 5. GI evaluation discussed 6. Optimize and plan to dc to snf when able full code impression, plan, and exam edited and reviewed in detail care discussed with Rodney Liang MD Sep 18, 2020 07:56
[2020-09-18 08:00] VITALS: BP 144/57
[2020-09-18] MEDS: Oxybutynin 5mg tab ORAL SCH (09:22)
[2020-09-18] MEDS: Losartan 50mg tab ORAL SCH (09:22)
[2020-09-18] MEDS: Donepezil 5mg Tab ORAL SCH (09:22)
[2020-09-18] MEDS: Eliquis 5mg tablet ORAL SCH ×2 (09:23→17:12)
[2020-09-18 10:16] LABS: BASOPHILS % (AUTO) 0.4 % (0.0-2.0); EOSINOPHILS % (AUTO) 0.9 % (0.0-3.0); HEMATOCRIT 35.7 % (37.0-47.0); HEMOGLOBIN 10.7 G/DL (12.0-16.0); LYMPHOCYTES % (AUTO) 10.8 % (20.0-45.0); MEAN CORPUSCULAR VOLUME 104 FL (80-99); MONOCYTES % (AUTO) 3.4 % (1.0-10.0); NEUTROPHILS % (AUTO) 84.4 % (45.0-75.0); PLATELET COUNT 330 K/UL (150-450); RED BLOOD COUNT 3.43 M/UL (4.20-5.40); RED CELL DISTRIBUTION WIDTH 14.5 % (11.6-14.8); WHITE BLOOD COUNT 12.5 K/UL (4.8-10.8)
[2020-09-18 10:33] LABS: ANION GAP 6 mmol/L (5-15); BLOOD UREA NITROGEN 7 mg/dL (7-18); CALCIUM 8.5 MG/DL (8.5-10.1); CARBON DIOXIDE 36 MMOL/L (21-32); CHLORIDE 108 MMOL/L (98-107); CREATININE 0.8 MG/DL (0.55-1.30); POTASSIUM 3.5 MMOL/L (3.5-5.1); SODIUM 150 MMOL/L (136-145)
--- NOTE | 2020-09-18 10:46 | Diagnostic Imaging Report ---
Indication: Shortness of breath Technique: One view of the chest Comparison: 09/17/2020 Findings: Elevated right hemidiaphragm, hazy bilateral parenchymal opacities are unchanged. Atelectasis in the left midlung persists Impression: Unchanged, over one day, findings as above.
--- NOTE | 2020-09-18 10:48 | Infectious Diseases Prog Note ---
Assessment/Plan Assessment/Plan antibiotics : zosyn A 1. pneumonia s/p rx COVID-19 test is negative x2. 2. Congestive heart failure. 3. Diabetes. 4. Hypertension P 1. d/c zosyn 2. observe off antibiotics Subjective Constitutional: Denies: fever, chills Respiratory: Denies: shortness of breath, dry cough Gastrointestinal/Abdominal: Denies: nausea, vomiting, diarrhea Musculoskeletal: Denies: pain Allergies: Coded Allergies: ASPIRIN (Verified Allergy, Unknown, 07/29/18) HYDROMORPHONE (Verified Adverse Reaction, Severe, Hallucinations, 10/16/18) LORAZEPAM (Verified Adverse Reaction, Severe, Altered Mental Status, 10/16/18) per Laureen matias, patient had afib MORPHINE (Verified Adverse Reaction, Severe, hallucinations, 10/16/18) Objective Last 24 Hour Vital Signs Date Time Temp Pulse Resp B/P (MAP) Pulse Ox O2 Delivery O2 Flow Rate FiO2 09/18/20 09:22 144/57 09/18/20 09:22 70 144/57 09/18/20 08:00 96.0 70 20 144/57 (86) 96 09/18/20 07:20 68 09/18/20 04:00 62 09/18/20 04:00 98.4 83 20 143/55 (84) 99 09/18/20 00:54 98.1 58 20 119/46 (70) 99 09/18/20 00:24 Nasal Cannula 2.0 09/17/20 21:00 Nasal Cannula 2.0 09/17/20 20:41 96 Nasal Cannula 2.0 28 09/17/20 20:00 98.1 59 20 121/38 (65) 93 09/17/20 20:00 52 09/17/20 16:11 98.2 63 19 120/54 (76) 93 09/17/20 16:00 51 09/17/20 15:57 98.2 60 18 125/44 (71) 96 09/17/20 15:35 2.0 09/17/20 15:33 98.2 60 18 125/44 (71) 96 09/17/20 12:00 2.0 09/17/20 12:00 69 09/17/20 12:00 97.7 82 18 127/49 (75) 99 09/17/20 11:21 94 Nasal Cannula 2.0 28 09/17/20 11:21 76 18 98 Nasal Cannula 2.0 28 73 18 94 Height (Feet): 5 Height (Inches): 4.00 Weight (Pounds): 130 Respiratory/Chest: lungs clear Cardiovascular: normal rate, regular rhythm, no gallop/murmur Abdomen: soft, non tender Extremities: no edema Microbiology Date/Time Source Procedure Growth Status 09/15/20 11:10 Stool Clostridium difficile Toxin Assay - Final Complete Laboratory Tests Test 09/17/20 11:42 09/17/20 16:31 09/17/20 21:45 09/18/20 05:45 POC Whole Blood Glucose Pending 176 MG/DL (74-106) H 142 MG/DL (74-106) H 128 MG/DL (74-106) H Test 09/18/20 10:05 White Blood Count 12.5 K/UL (4.8-10.8) H Red Blood Count 3.43 M/UL (4.20-5.40) L Hemoglobin 10.7 G/DL (12.0-16.0) L Hematocrit 35.7 % (37.0-47.0) L Mean Corpuscular Volume 104 FL (80-99) H Mean Corpuscular Hemoglobin 31.1 PG (27.0-31.0) H Mean Corpuscular Hemoglobin Concent 29.9 G/DL (32.0-36.0) L Red Cell Distribution Width 14.5 % (11.6-14.8) Platelet Count 330 K/UL (150-450) Mean Platelet Volume 6.0 FL (6.5-10.1) L Neutrophils (%) (Auto) 84.4 % (45.0-75.0) H Lymphocytes (%) (Auto) 10.8 % (20.0-45.0) L Monocytes (%) (Auto) 3.4 % (1.0-10.0) Eosinophils (%) (Auto) 0.9 % (0.0-3.0) Basophils (%) (Auto) 0.4 % (0.0-2.0) Sodium Level Pending Potassium Level Pending Chloride Level Pending Carbon Dioxide Level Pending Blood Urea Nitrogen Pending Creatinine Pending Estimat Glomerular Filtration Rate Pending Glucose Level Pending Calcium Level Pending Current Medications Medications (Trade) Dose Ordered Sig/Arielle Route PRN Reason Start Time Stop Time Status Last Admin Dose Admin Acetaminophen (Tylenol) 650 mg Q4H PRN ORAL MILD/TEMP 09/12/20 01:30 10/12/20 01:29 Albuterol Sulfate (Proventil) 2.5 mg Q4HRT PRN HHN Shortness of breath 09/17/20 10:45 09/22/20 10:44 09/17/20 11:21 Amlodipine Besylate (Norvasc) 2.5 mg DAILY ORAL 09/12/20 09:00 10/12/20 08:59 09/18/20 09:22 Apixaban (Eliquis) 5 mg BID ORAL 09/13/20 18:00 12/12/20 17:59 09/18/20 09:23 Atorvastatin Calcium (Lipitor) 10 mg BEDTIME ORAL 09/12/20 21:00 12/11/20 20:59 09/17/20 21:49 Dextrose (Dextrose 50%) 25 ml Q30M PRN IV Hypoglycemia 09/12/20 01:00 12/11/20 00:59 Dextrose (Dextrose 50%) 50 ml Q30M PRN IV Hypoglycemia 09/12/20 01:00 12/11/20 00:59 Donepezil HCl (Aricept) 5 mg DAILY ORAL 09/12/20 09:00 10/12/20 08:59 09/18/20 09:22 Gabapentin (Neurontin) 300 mg FOUR TIMES A DAY ORAL 09/12/20 13:00 10/12/20 12:59 09/18/20 09:22 Insulin Aspart (NovoLOG) BEFORE MEALS AND HS SUBQ 09/12/20 06:30 12/11/20 06:29 09/17/20 21:59 Loperamide HCl (Imodium) 2 mg Q12HR PRN ORAL Diarrhea 09/17/20 10:30 10/17/20 10:29 Losartan Potassium (Cozaar) 100 mg DAILY ORAL 09/12/20 09:00 10/12/20 08:59 09/18/20 09:22 Metformin HCl (Glucophage) 500 mg ACBREAKFAST ORAL 09/13/20 06:30 10/13/20 06:29 09/18/20 06:29 Multivitamins (Multivitamins) 1 tab DAILY ORAL 09/12/20 09:00 10/12/20 08:59 09/18/20 09:22 Oxybutynin Chloride (Ditropan) 5 mg DAILY ORAL 09/12/20 09:00 10/12/20 08:59 09/18/20 09:22 Pantoprazole (Protonix) 40 mg DAILY ORAL 09/12/20 09:00 10/12/20 08:59 09/18/20 09:22 Piperacillin Sod/ Tazobactam Sod 3.375 gm/Sodium Chloride 110 ml @ 27.5 mls/hr Q8H IVPB 09/16/20 20:00 09/23/20 19:59 09/18/20 04:00 Jazmyn Mcrae MD Sep 18, 2020 10:48
[2020-09-18 12:00] VITALS: BP 112/64
[2020-09-18 15:58] VITALS: BP 124/61
--- NOTE | 2020-09-18 18:52 | General Progress Note ---
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, and OB (+) stools DTR wants to be conservative, but she will first talk to her brother and call tomorrow with answer Objective Last 24 Hour Vital Signs Date Time Temp Pulse Resp B/P (MAP) Pulse Ox O2 Delivery O2 Flow Rate FiO2 09/18/20 15:58 96.7 64 18 124/61 (82) 95 09/18/20 15:47 65 09/18/20 12:00 98.7 66 20 112/64 (80) 96 09/18/20 11:56 68 09/18/20 09:22 144/57 09/18/20 09:22 70 144/57 09/18/20 09:00 Nasal Cannula 2.0 09/18/20 08:00 96.0 70 20 144/57 (86) 96 09/18/20 07:20 68 09/18/20 04:00 62 09/18/20 04:00 98.4 83 20 143/55 (84) 99 09/18/20 00:54 98.1 58 20 119/46 (70) 99 09/18/20 00:24 Nasal Cannula 2.0 09/17/20 21:00 Nasal Cannula 2.0 09/17/20 20:41 96 Nasal Cannula 2.0 28 09/17/20 20:00 98.1 59 20 121/38 (65) 93 09/17/20 20:00 52 Intake and Output 09/17/20 09/18/20 19:00 07:00 Intake Total 360 ml Balance 360 ml Intake Oral 360 ml # Voids 3 2 # Bowel Movements 3 Laboratory Tests 09/17/20 21:45: POC Whole Blood Glucose 142H 09/18/20 05:45: POC Whole Blood Glucose 128H 09/18/20 10:05: White Blood Count 12.5H, Red Blood Count 3.43L, Hemoglobin 10.7L, Hematocrit 35.7L, Mean Corpuscular Volume 104H, Mean Corpuscular Hemoglobin 31.1H, Mean Corpuscular Hemoglobin Concent 29.9L, Red Cell Distribution Width 14.5, Platelet Count 330, Mean Platelet Volume 6.0L, Neutrophils (%) (Auto) 84.4H, Lymphocytes (%) (Auto) 10.8L, Monocytes (%) (Auto) 3.4, Eosinophils (%) (Auto) 0.9, Basophils (%) (Auto) 0.4, Sodium Level 150H, Potassium Level 3.5, Chloride Level 108H, Carbon Dioxide Level 36H, Anion Gap 6, Blood Urea Nitrogen 7, Creatinine 0.8, Estimat Glomerular Filtration Rate > 60, Glucose Level 151H, Calcium Level 8.5 09/18/20 11:30: POC Whole Blood Glucose 182H 09/18/20 16:43: POC Whole Blood Glucose 153H Height (Feet): 5 Height (Inches): 4.00 Weight (Pounds): 130 Objective Elderly woman NCAT supple CTA RR abd soft no edema Assessment/Plan Status: stable, unchanged Assessment/Plan: Assessment - Diarrhea - Thickened (L) colon, C diff (-) , stool cultures pending - OB (+) stools - PNA - OBS - CHF - Atrial fibrillation - on Eliquis - Pulmonary HTN Recommendations - await stool Cx - Follow CBC - continue PPI - IV Iron - Risk benefit analysis for Eliquis - Push po - Elevate HOB Cooper Ruiz MD Sep 18, 2020 18:52
[2020-09-18 20:00] VITALS: BP 125/70
[2020-09-18] MEDS: Iron Sucrose 100 MG in NS 55 ML IVPB SCH (22:07)
[2020-09-19] VITALS: BP 122/72
--- NOTE | 2020-09-19 01:25 | Cardiology Progress Note ---
Subjective DATE OF SERVICE: Sep 18, 2020 No pain. Still with SOB. Remains with free water deficit. Monitor: Atrial fibrillation - rate controlled. 2D Echo: LVEF normal, Severe pulmonary hypertension, Mod TR, Mild MR. Objective Last 24 Hour Vital Signs Date Time Temp Pulse Resp B/P (MAP) Pulse Ox O2 Delivery O2 Flow Rate FiO2 09/19/20 00:00 65 09/19/20 00:00 97.8 70 20 122/72 (89) 97 09/18/20 21:00 Nasal Cannula 2.0 09/18/20 20:00 97.8 70 19 125/70 (88) 94 09/18/20 20:00 69 09/18/20 15:58 96.7 64 18 124/61 (82) 95 09/18/20 15:47 65 09/18/20 12:00 98.7 66 20 112/64 (80) 96 09/18/20 11:56 68 09/18/20 09:22 144/57 09/18/20 09:22 70 144/57 09/18/20 09:00 Nasal Cannula 2.0 09/18/20 08:00 96.0 70 20 144/57 (86) 96 09/18/20 07:20 68 09/18/20 04:00 62 09/18/20 04:00 98.4 83 20 143/55 (84) 99 ROS: unchanged from my evaluation of 09/17/20. HEENT: normal ENT inspection RHYTHM: Afib LUNGS: diminished breath sounds, bilateral rhonchi CARDIAC: normal S1 and S2, irregularly irregular, bradycardia ABDOMEN: normal bowel sounds, non tender, soft EXTREMITIES: non-tender, normal inspection, trace edema Laboratory Tests Test 09/18/20 05:45 09/18/20 10:05 09/18/20 11:30 09/18/20 16:43 POC Whole Blood Glucose 128 MG/DL (74-106) H 182 MG/DL (74-106) H 153 MG/DL (74-106) H White Blood Count 12.5 K/UL (4.8-10.8) H Red Blood Count 3.43 M/UL (4.20-5.40) L Hemoglobin 10.7 G/DL (12.0-16.0) L Hematocrit 35.7 % (37.0-47.0) L Mean Corpuscular Volume 104 FL (80-99) H Mean Corpuscular Hemoglobin 31.1 PG (27.0-31.0) H Mean Corpuscular Hemoglobin Concent 29.9 G/DL (32.0-36.0) L Red Cell Distribution Width 14.5 % (11.6-14.8) Platelet Count 330 K/UL (150-450) Mean Platelet Volume 6.0 FL (6.5-10.1) L Neutrophils (%) (Auto) 84.4 % (45.0-75.0) H Lymphocytes (%) (Auto) 10.8 % (20.0-45.0) L Monocytes (%) (Auto) 3.4 % (1.0-10.0) Eosinophils (%) (Auto) 0.9 % (0.0-3.0) Basophils (%) (Auto) 0.4 % (0.0-2.0) Sodium Level 150 MMOL/L (136-145) H Potassium Level 3.5 MMOL/L (3.5-5.1) Chloride Level 108 MMOL/L (98-107) H Carbon Dioxide Level 36 MMOL/L (21-32) H Anion Gap 6 mmol/L (5-15) Blood Urea Nitrogen 7 mg/dL (7-18) Creatinine 0.8 MG/DL (0.55-1.30) Estimat Glomerular Filtration Rate > 60 mL/min (>60) Glucose Level 151 MG/DL (74-106) H Calcium Level 8.5 MG/DL (8.5-10.1) Test 09/18/20 21:59 POC Whole Blood Glucose 185 MG/DL (74-106) H Assessment/Plan Assessment/Plan Chronic atrial fibrillation - rate controlled, trending slow-normal range Ac/chronic diastolic CHF Severe pulmonary hypertension NSTE myocardial infarction precipitated by severe respiratory distress COPD exacerbation with hypoxia NIDDM Hypertension - now with low-normal BP range. Dehydration/hypernatremia Off amlodipine due to low-normal BP range; monitor BP parameters Full anticoagulation with apixaban Diuresis based on clinical parameters; hold pending correction of free-water deficit Monitor acid-base parameters Steroid taper per pulmonary Continue cardiac monitoring Iftikhar Carballo MD Sep 19, 2020 01:25
[2020-09-19 04:00] VITALS: BP 140/55
--- NOTE | 2020-09-19 04:05 | Cardiology Report ---
APPROVED REPORT EKG Measurement Heart [id number] <Conclusion> Junctional rhythm Left posterior fascicular block Abnormal QRS-T angle, consider primary T wave abnormality Abnormal ECG
--- NOTE | 2020-09-19 04:11 | Cardiology Report ---
APPROVED REPORT EKG Measurement Heart [id number] <Conclusion> atrial fibrillation Cannot rule out Anterior infarct, age undetermined Abnormal ECG
--- NOTE | 2020-09-19 04:11 | Cardiology Report ---
APPROVED REPORT EXAM: Two-dimensional and M-mode echocardiogram with Doppler and color Doppler. INDICATION Atrial Fibrillation M-Mode DIMENSIONS IVSd1.1 (0.7-1.1cm)Left Atrium (MM)4.0 (1.6-4.0cm) LVDd3.3 (3.5-5.6cm)Aortic Root2.5 (2.0-3.7cm) PWd1.2 (0.7-1.1cm)Aortic Cusp Exc.1.5 (1.5-2.0cm) IVSs1.6 cmEPSS0.3 (>1.0cm) LVDs1.5 (2.5-4.0cm) <Conclusion> Technically difficult study due to poor acoustic windows. Study quality precludes accurate assessment of regional wall motion. Normal left ventricular chamber size, systolic function and wall motion. Left ventricular ejection fraction estimated to be 65 %. No evidence of left ventricular hypertrophy. No evidence of pericardial effusion. All other cardiac chamber sizes are within normal limits. Focal aortic valve sclerosis with adequate cusp excursion. Thickened mitral valve leaflets with normal excursion. Mild mitral annulus and aortic root calcification. Pulmonic valve not well visualized. Normal tricuspid valve structure. IVC is normal in size with physiological collapse. A color flow and spectral Doppler study was performed and revealed: No aortic regurgitation. Mild mitral regurgitation. Left ventricular diastolic function could not be determined due to A-Fib. Moderate tricuspid regurgitation. Tricuspid systolic velocities suggests peak right ventricular systolic pressure of 75 mmHg, consistent with severe pulmonary hypertension. No pulmonic regurgitation present.
[2020-09-19] MEDS: NovoLOG Insulin Flexpen SUBQ SCH ×4 (06:12→21:00)
[2020-09-19] MEDS: metFORMIN 500mg tab ORAL SCH (06:20)
[2020-09-19 08:00] VITALS: BP 121/42
[2020-09-19] MEDS: Donepezil 5mg Tab ORAL SCH (09:13)
[2020-09-19] MEDS: Losartan 50mg tab ORAL SCH (09:14)
[2020-09-19] MEDS: Eliquis 5mg tablet ORAL SCH ×2 (09:14→17:13)
[2020-09-19] MEDS: Oxybutynin 5mg tab ORAL SCH (09:14)
--- NOTE | 2020-09-19 09:30 | General Progress Note ---
Subjective Allergies: Coded Allergies: ASPIRIN (Verified Allergy, Unknown, 07/29/18) HYDROMORPHONE (Verified Adverse Reaction, Severe, Hallucinations, 10/16/18) LORAZEPAM (Verified Adverse Reaction, Severe, Altered Mental Status, 10/16/18) per Laureen matias, patient had afib MORPHINE (Verified Adverse Reaction, Severe, hallucinations, 10/16/18) Subjective care noted off isolation comfortable Objective Last 24 Hour Vital Signs Date Time Temp Pulse Resp B/P (MAP) Pulse Ox O2 Delivery O2 Flow Rate FiO2 09/19/20 09:14 121/42 09/19/20 08:00 63 09/19/20 04:00 67 09/19/20 04:00 98.1 60 20 140/55 (83) 99 09/19/20 00:00 65 09/19/20 00:00 97.8 70 20 122/72 (89) 97 09/18/20 21:00 Nasal Cannula 2.0 09/18/20 20:00 97.8 70 19 125/70 (88) 94 09/18/20 20:00 69 09/18/20 15:58 96.7 64 18 124/61 (82) 95 09/18/20 15:47 65 09/18/20 12:00 98.7 66 20 112/64 (80) 96 09/18/20 11:56 68 Intake and Output 09/18/20 09/19/20 19:00 07:00 Intake Total 120 ml Balance 120 ml Intake Oral 120 ml # Voids 5 1 # Bowel Movements 3 1 Laboratory Tests 09/18/20 10:05: White Blood Count 12.5H, Red Blood Count 3.43L, Hemoglobin 10.7L, Hematocrit 35.7L, Mean Corpuscular Volume 104H, Mean Corpuscular Hemoglobin 31.1H, Mean Corpuscular Hemoglobin Concent 29.9L, Red Cell Distribution Width 14.5, Platelet Count 330, Mean Platelet Volume 6.0L, Neutrophils (%) (Auto) 84.4H, Lymphocytes (%) (Auto) 10.8L, Monocytes (%) (Auto) 3.4, Eosinophils (%) (Auto) 0.9, Basophils (%) (Auto) 0.4, Sodium Level 150H, Potassium Level 3.5, Chloride Level 108H, Carbon Dioxide Level 36H, Anion Gap 6, Blood Urea Nitrogen 7, Creatinine 0.8, Estimat Glomerular Filtration Rate > 60, Glucose Level 151H, Calcium Level 8.5 09/18/20 11:30: POC Whole Blood Glucose 182H 09/18/20 16:43: POC Whole Blood Glucose 153H 09/18/20 21:59: POC Whole Blood Glucose 185H 09/19/20 06:00: POC Whole Blood Glucose 219H Height (Feet): 5 Height (Inches): 4.00 Weight (Pounds): 130 Objective WDWN NAD reduced breath sounds bilaterally without rhonchi or wheeze [id number] without MRG NABS nontender no HSM no CC mild nonfocal confused on oxygen Assessment/Plan Status: stable, unchanged Assessment/Plan: IMPRESSION: 1. Abnormal x-ray, possibly due to underlying pulmonary edema versus atypical pneumonia. 2. History of diarrhea and constipation. 3. Possible sepsis. 4. Elevated troponin. 5. Possible non-STEMI. 6. Hypercholesterolemia. 7. possible colitis 8. Hypernatremia RECOMMENDATIONS: 1. Empiric antibiotics and ID followup 2. monitor troponins- cards noted 3. Lasix with elevated BNP, repeat and monitor lytes 4. Monitor clinically in telemetry. 5. GI evaluation discussed 6. Optimize and plan to dc to snf when able- review results full code impression, plan, and exam edited and reviewed in detail care discussed with Rodney Liang MD Sep 19, 2020 09:30
--- NOTE | 2020-09-19 10:49 | Infectious Diseases Prog Note ---
Assessment/Plan Assessment/Plan antibiotics : none A 1. pneumonia s/p rx COVID-19 test is negative x2. 2. Congestive heart failure. 3. Diabetes. 4. Hypertension P 1. observe off antibiotics Subjective ROS Limited/Unobtainable: Yes Allergies: Coded Allergies: ASPIRIN (Verified Allergy, Unknown, 07/29/18) HYDROMORPHONE (Verified Adverse Reaction, Severe, Hallucinations, 10/16/18) LORAZEPAM (Verified Adverse Reaction, Severe, Altered Mental Status, 10/16/18) per Laureen matias, patient had afib MORPHINE (Verified Adverse Reaction, Severe, hallucinations, 10/16/18) Objective Last 24 Hour Vital Signs Date Time Temp Pulse Resp B/P (MAP) Pulse Ox O2 Delivery O2 Flow Rate FiO2 09/19/20 10:31 Nasal Cannula 2.0 09/19/20 09:14 121/42 09/19/20 08:00 63 09/19/20 08:00 97.9 60 20 121/42 (68) 100 09/19/20 04:00 67 09/19/20 04:00 98.1 60 20 140/55 (83) 99 09/19/20 00:00 65 09/19/20 00:00 97.8 70 20 122/72 (89) 97 09/18/20 21:00 Nasal Cannula 2.0 09/18/20 20:00 97.8 70 19 125/70 (88) 94 09/18/20 20:00 69 09/18/20 15:58 96.7 64 18 124/61 (82) 95 09/18/20 15:47 65 09/18/20 12:00 98.7 66 20 112/64 (80) 96 09/18/20 11:56 68 Height (Feet): 5 Height (Inches): 4.00 Weight (Pounds): 130 Respiratory/Chest: lungs clear Cardiovascular: normal rate, regular rhythm, no gallop/murmur Abdomen: soft, non tender Extremities: no edema Laboratory Tests Test 09/18/20 11:30 09/18/20 16:43 09/18/20 21:59 09/19/20 06:00 POC Whole Blood Glucose 182 MG/DL (74-106) H 153 MG/DL (74-106) H 185 MG/DL (74-106) H 219 MG/DL (74-106) H Current Medications Medications (Trade) Dose Ordered Sig/Arielle Route PRN Reason Start Time Stop Time Status Last Admin Dose Admin Acetaminophen (Tylenol) 650 mg Q4H PRN ORAL MILD/TEMP 09/12/20 01:30 10/12/20 01:29 Albuterol Sulfate (Proventil) 2.5 mg Q4HRT PRN HHN Shortness of breath 09/17/20 10:45 09/22/20 10:44 09/17/20 11:21 Apixaban (Eliquis) 5 mg BID ORAL 09/13/20 18:00 12/12/20 17:59 09/19/20 09:14 Atorvastatin Calcium (Lipitor) 10 mg BEDTIME ORAL 09/12/20 21:00 12/11/20 20:59 09/18/20 22:07 Dextrose (Dextrose 50%) 25 ml Q30M PRN IV Hypoglycemia 09/12/20 01:00 12/11/20 00:59 Dextrose (Dextrose 50%) 50 ml Q30M PRN IV Hypoglycemia 09/12/20 01:00 12/11/20 00:59 Donepezil HCl (Aricept) 5 mg DAILY ORAL 09/12/20 09:00 10/12/20 08:59 09/19/20 09:13 Gabapentin (Neurontin) 300 mg FOUR TIMES A DAY ORAL 09/12/20 13:00 10/12/20 12:59 09/19/20 09:14 Insulin Aspart (NovoLOG) BEFORE MEALS AND HS SUBQ 09/12/20 06:30 12/11/20 06:29 09/19/20 06:12 Iron Sucrose 100 mg/Sodium Chloride 60 ml @ 240 mls/hr BEDTIME IVPB 09/18/20 21:00 09/22/20 21:14 09/18/20 22:07 Loperamide HCl (Imodium) 2 mg Q12HR PRN ORAL Diarrhea 09/17/20 10:30 10/17/20 10:29 Losartan Potassium (Cozaar) 100 mg DAILY ORAL 09/12/20 09:00 10/12/20 08:59 09/19/20 09:14 Metformin HCl (Glucophage) 500 mg ACBREAKFAST ORAL 09/13/20 06:30 10/13/20 06:29 09/19/20 06:20 Multivitamins (Multivitamins) 1 tab DAILY ORAL 09/12/20 09:00 10/12/20 08:59 09/19/20 09:14 Oxybutynin Chloride (Ditropan) 5 mg DAILY ORAL 09/12/20 09:00 10/12/20 08:59 09/19/20 09:14 Pantoprazole (Protonix) 40 mg DAILY ORAL 09/12/20 09:00 10/12/20 08:59 09/19/20 09:14 Jazmyn Mcrae MD Sep 19, 2020 10:49
[2020-09-19 12:00] VITALS: BP 121/50
[2020-09-19 16:00] VITALS: BP 122/97
--- NOTE | 2020-09-19 19:58 | General Progress Note ---
Subjective Allergies: Coded Allergies: ASPIRIN (Verified Allergy, Unknown, 07/29/18) HYDROMORPHONE (Verified Adverse Reaction, Severe, Hallucinations, 10/16/18) LORAZEPAM (Verified Adverse Reaction, Severe, Altered Mental Status, 10/16/18) per Laureen mtaias, patient had afib MORPHINE (Verified Adverse Reaction, Severe, hallucinations, 10/16/18) Subjective d/w RN diarrhea resolved today only 1 bm recorded Telephone family conference held with son and daughter family want another day to think about GI w/u for OB (+) stool Objective Last 24 Hour Vital Signs Date Time Temp Pulse Resp B/P (MAP) Pulse Ox O2 Delivery O2 Flow Rate FiO2 09/19/20 19:51 73 18 98 Nasal Cannula 2.0 28 09/19/20 19:51 98 Nasal Cannula 2.0 28 09/19/20 16:00 97.5 63 20 122/97 (105) 98 09/19/20 16:00 55 09/19/20 12:34 57 09/19/20 12:00 97.7 57 18 121/50 (73) 99 09/19/20 10:31 Nasal Cannula 2.0 09/19/20 09:14 121/42 09/19/20 08:00 63 09/19/20 08:00 97.9 60 20 121/42 (68) 100 09/19/20 07:00 100 Nasal Cannula 2.0 28 09/19/20 04:00 67 09/19/20 04:00 98.1 60 20 140/55 (83) 99 09/19/20 00:00 65 09/19/20 00:00 97.8 70 20 122/72 (89) 97 09/18/20 21:00 Nasal Cannula 2.0 09/18/20 20:00 97.8 70 19 125/70 (88) 94 09/18/20 20:00 69 Intake and Output 09/18/20 09/19/20 19:00 07:00 Intake Total 120 ml Balance 120 ml Intake Oral 120 ml # Voids 5 1 # Bowel Movements 3 1 Laboratory Tests 09/18/20 21:59: POC Whole Blood Glucose 185H 09/19/20 06:00: POC Whole Blood Glucose 219H 09/19/20 11:29: POC Whole Blood Glucose 150H 09/19/20 16:41: POC Whole Blood Glucose [Pending] Height (Feet): 5 Height (Inches): 4.00 Weight (Pounds): 130 Objective Elderly woman NCAT supple CTA RR abd soft no edema Assessment/Plan Status: stable, unchanged Assessment/Plan: Assessment - Diarrhea - improved - Thickened (L) colon, C diff (-) , stool cultures pending - OB (+) stools - family need another day to decide on GI w/u - PNA - OBS - CHF - Atrial fibrillation - on Eliquis - Pulmonary HTN Recommendations - await stool Cx - Follow CBC - continue PPI - IV Iron - Risk benefit analysis for Eliquis - Push po - Elevate HOB - await family decision Cooper Ruiz MD Sep 19, 2020 19:58
[2020-09-19 20:00] VITALS: BP 110/65
[2020-09-19] MEDS: Iron Sucrose 100 MG in NS 55 ML IVPB SCH (21:49)
--- NOTE | 2020-09-19 23:24 | Cardiology Progress Note ---
Subjective DATE OF SERVICE: Sep 19, 2020 No pain. Still with SOB. Stool OB + Decreasing free water deficit. Monitor: Atrial fibrillation - rate controlled. 2D Echo: LVEF normal, Severe pulmonary hypertension, Mod TR, Mild MR. Objective Last 24 Hour Vital Signs Date Time Temp Pulse Resp B/P (MAP) Pulse Ox O2 Delivery O2 Flow Rate FiO2 09/19/20 21:00 Nasal Cannula 2.0 09/19/20 20:00 63 09/19/20 20:00 97.7 65 20 110/65 (80) 95 09/19/20 19:51 73 18 98 Nasal Cannula 2.0 28 09/19/20 19:51 98 Nasal Cannula 2.0 28 09/19/20 16:00 97.5 63 20 122/97 (105) 98 09/19/20 16:00 55 09/19/20 12:34 57 09/19/20 12:00 97.7 57 18 121/50 (73) 99 09/19/20 10:31 Nasal Cannula 2.0 09/19/20 09:14 121/42 09/19/20 08:00 63 09/19/20 08:00 97.9 60 20 121/42 (68) 100 09/19/20 07:00 100 Nasal Cannula 2.0 28 09/19/20 04:00 67 09/19/20 04:00 98.1 60 20 140/55 (83) 99 09/19/20 00:00 65 09/19/20 00:00 97.8 70 20 122/72 (89) 97 ROS: unchanged from my evaluation of 09/17/20. HEENT: normal ENT inspection RHYTHM: Afib LUNGS: diminished breath sounds, bilateral rhonchi CARDIAC: normal S1 and S2, irregularly irregular, bradycardia ABDOMEN: normal bowel sounds, non tender, soft EXTREMITIES: non-tender, normal inspection, trace edema Laboratory Tests Test 09/19/20 06:00 09/19/20 11:29 09/19/20 16:41 09/19/20 21:32 POC Whole Blood Glucose 219 MG/DL (74-106) H 150 MG/DL (74-106) H Pending 198 MG/DL (74-106) H Assessment/Plan Assessment/Plan Chronic atrial fibrillation - rate controlled, trending slow-normal range Ac/chronic diastolic CHF Severe pulmonary hypertension NSTE myocardial infarction precipitated by severe respiratory distress COPD exacerbation with hypoxia NIDDM Hypertension - now with low-normal BP range. Dehydration/hypernatremia Off amlodipine due to low-normal BP range; monitor BP parameters Full anticoagulation with apixaban Diuresis based on clinical parameters Monitor acid-base parameters Steroid taper per pulmonary Continue cardiac monitoring Follow up lytes Free water replacement as needed Possible GI procedure for eval of OB+ stool Iftikhar Carballo MD Sep 19, 2020 23:24
[2020-09-20] VITALS: BP 129/69
[2020-09-20 04:00] VITALS: BP 120/56
[2020-09-20] MEDS: metFORMIN 500mg tab ORAL SCH (06:10)
[2020-09-20] MEDS: NovoLOG Insulin Flexpen SUBQ SCH ×2 (06:10→11:30)
[2020-09-20 07:27] LABS: BASOPHILS % (AUTO) 0.5 % (0.0-2.0); EOSINOPHILS % (AUTO) 1.8 % (0.0-3.0); HEMATOCRIT 33.6 % (37.0-47.0); HEMOGLOBIN 10.1 G/DL (12.0-16.0); LYMPHOCYTES % (AUTO) 13.1 % (20.0-45.0); MEAN CORPUSCULAR VOLUME 104 FL (80-99); MONOCYTES % (AUTO) 5.2 % (1.0-10.0); NEUTROPHILS % (AUTO) 79.4 % (45.0-75.0); PLATELET COUNT 299 K/UL (150-450); RED BLOOD COUNT 3.24 M/UL (4.20-5.40); RED CELL DISTRIBUTION WIDTH 14.4 % (11.6-14.8); WHITE BLOOD COUNT 9.9 K/UL (4.8-10.8)
[2020-09-20 07:45] LABS: ALANINE AMINOTRANSFERASE 14 U/L (12-78); ALBUMIN 2.4 G/DL (3.4-5.0); ALBUMIN/GLOBULIN RATIO 0.7 (1.0-2.7); ALKALINE PHOSPHATASE 79 U/L (46-116); ANION GAP 3 mmol/L (5-15); ASPARTATE AMINO TRANSFERASE 17 U/L (15-37); BILIRUBIN,TOTAL 0.3 MG/DL (0.2-1.0); BLOOD UREA NITROGEN 19 mg/dL (7-18); CALCIUM 8.7 MG/DL (8.5-10.1); CARBON DIOXIDE 39 MMOL/L (21-32); CHLORIDE 106 MMOL/L (98-107); CREATININE 0.9 MG/DL (0.55-1.30); POTASSIUM 3.2 MMOL/L (3.5-5.1); SODIUM 148 MMOL/L (136-145)
[2020-09-20 08:00] VITALS: BP 133/76
[2020-09-20] MEDS: Donepezil 5mg Tab ORAL SCH (08:05)
[2020-09-20] MEDS: Eliquis 5mg tablet ORAL SCH (08:05)
[2020-09-20] MEDS: Oxybutynin 5mg tab ORAL SCH (08:06)
[2020-09-20] MEDS: Losartan 50mg tab ORAL SCH (08:06)
--- NOTE | 2020-09-20 08:19 | General Progress Note ---
Subjective Allergies: Coded Allergies: ASPIRIN (Verified Allergy, Unknown, 07/29/18) HYDROMORPHONE (Verified Adverse Reaction, Severe, Hallucinations, 10/16/18) LORAZEPAM (Verified Adverse Reaction, Severe, Altered Mental Status, 10/16/18) per Laureen matias, patient had afib MORPHINE (Verified Adverse Reaction, Severe, hallucinations, 10/16/18) Subjective care noted off isolation comfortable calm no distress Objective Last 24 Hour Vital Signs Date Time Temp Pulse Resp B/P (MAP) Pulse Ox O2 Delivery O2 Flow Rate FiO2 09/20/20 08:06 133/66 09/20/20 04:00 69 09/20/20 04:00 97.7 69 21 120/56 (77) 96 09/20/20 00:00 98.2 67 22 129/69 (89) 95 09/19/20 21:00 Nasal Cannula 2.0 09/19/20 20:00 63 09/19/20 20:00 97.7 65 20 110/65 (80) 95 09/19/20 19:51 73 18 98 Nasal Cannula 2.0 28 09/19/20 19:51 98 Nasal Cannula 2.0 28 09/19/20 16:00 97.5 63 20 122/97 (105) 98 09/19/20 16:00 55 09/19/20 12:34 57 09/19/20 12:00 97.7 57 18 121/50 (73) 99 09/19/20 10:31 Nasal Cannula 2.0 09/19/20 09:14 121/42 Intake and Output 09/19/20 09/20/20 19:00 07:00 Intake Total 360 ml 150 ml Balance 360 ml 150 ml Intake Oral 360 ml 150 ml # Voids 3 1 # Bowel Movements 1 Laboratory Tests 09/19/20 11:29: POC Whole Blood Glucose 150H 09/19/20 16:41: POC Whole Blood Glucose [Pending] 09/19/20 21:32: POC Whole Blood Glucose 198H 09/20/20 05:44: White Blood Count 9.9, Red Blood Count 3.24L, Hemoglobin 10.1L, Hematocrit 33.6L , Mean Corpuscular Volume 104H, Mean Corpuscular Hemoglobin 31.2H, Mean Corpuscular Hemoglobin Concent 30.1L, Red Cell Distribution Width 14.4, Platelet Count 299, Mean Platelet Volume 5.5L, Neutrophils (%) (Auto) 79.4H, Lymphocytes (%) (Auto) 13.1L, Monocytes (%) (Auto) 5.2, Eosinophils (%) (Auto) 1.8, Basophils (%) (Auto) 0.5, Sodium Level 148H, Potassium Level 3.2L, Chloride Level 106, Carbon Dioxide Level 39H, Anion Gap 3L, Blood Urea Nitrogen 19H, Creatinine 0.9, Estimat Glomerular Filtration Rate > 60, Glucose Level 127H, Calcium Level 8.7, Total Bilirubin 0.3, Aspartate Amino Transf (AST/SGOT) 17, Alanine Aminotransferase (ALT/SGPT) 14, Alkaline Phosphatase 79, Total Protein 5.8L, Albumin 2.4L, Globulin 3.4, Albumin/Globulin Ratio 0.7L 09/20/20 05:53: POC Whole Blood Glucose 129H Height (Feet): 5 Height (Inches): 4.00 Weight (Pounds): 130 Objective WDWN NAD reduced breath sounds bilaterally without rhonchi or wheeze [id number] without MRG NABS nontender no CC mild nonfocal confused but calm on oxygen Assessment/Plan Status: stable, unchanged Assessment/Plan: IMPRESSION: 1. Abnormal x-ray, possibly due to underlying pulmonary edema versus atypical pneumonia. 2. History of diarrhea and constipation. 3. Possible sepsis. 4. Elevated troponin. 5. Possible non-STEMI. 6. Hypercholesterolemia. 7. possible colitis 8. Hypernatremia RECOMMENDATIONS: 1. nontoxic 2. replace K 3. Lasix with elevated BNP, repeat and monitor lytes 4. Monitor clinically in telemetry. 5. monitor PO 6. dc planning to snf today full code impression, plan, and exam edited and reviewed in detail care discussed with Rodney Liang MD Sep 20, 2020 08:19
[2020-09-20] MEDS ORDERED: NEURONTIN100 MG ORAL (08:38)
[2020-09-20] MEDS ORDERED: ATORVASTATIN CA10 MG ORAL (08:39)
[2020-09-20] MEDS ORDERED: METFORMIN HCL500 M1 ORAL (08:40)
--- NOTE | 2020-09-20 11:40 | Infectious Diseases Prog Note ---
Assessment/Plan Assessment/Plan A: 1. Treated pneumonia. COVID-19 test is negative x2. 2. Congestive heart failure. 3. Diabetes. 4. Hypertension. 5. Diarrhea, C.difficile negative 6. Alzheimer disease PLAN: 1. Observe off antibiotic. Subjective ROS Limited/Unobtainable: Yes Constitutional: Reports: no symptoms Respiratory: Reports: no symptoms Gastrointestinal/Abdominal: Reports: no symptoms Genitourinary: Reports: no symptoms Allergies: Coded Allergies: ASPIRIN (Verified Allergy, Unknown, 07/29/18) HYDROMORPHONE (Verified Adverse Reaction, Severe, Hallucinations, 10/16/18) LORAZEPAM (Verified Adverse Reaction, Severe, Altered Mental Status, 10/16/18) per Laureen matias, patient had afib MORPHINE (Verified Adverse Reaction, Severe, hallucinations, 10/16/18) Objective Last 24 Hour Vital Signs Date Time Temp Pulse Resp B/P (MAP) Pulse Ox O2 Delivery O2 Flow Rate FiO2 09/20/20 09:00 Nasal Cannula 2.0 09/20/20 08:06 133/66 09/20/20 08:00 69 09/20/20 08:00 97.7 77 20 133/76 (95) 97 09/20/20 07:40 97 Nasal Cannula 2.0 28 09/20/20 07:40 77 18 97 Nasal Cannula 2.0 28 09/20/20 04:00 69 09/20/20 04:00 97.7 69 21 120/56 (77) 96 09/20/20 00:00 98.2 67 22 129/69 (89) 95 09/19/20 21:00 Nasal Cannula 2.0 09/19/20 20:00 63 09/19/20 20:00 97.7 65 20 110/65 (80) 95 09/19/20 19:51 73 18 98 Nasal Cannula 2.0 28 09/19/20 19:51 98 Nasal Cannula 2.0 28 09/19/20 16:00 97.5 63 20 122/97 (105) 98 09/19/20 16:00 55 09/19/20 12:34 57 09/19/20 12:00 97.7 57 18 121/50 (73) 99 Height (Feet): 5 Height (Inches): 4.00 Weight (Pounds): 130 General Appearance: no acute distress HEENT: mucous membranes moist Respiratory/Chest: lungs clear Cardiovascular: normal rate Abdomen: soft, non tender Neurologic/Psychiatric: alert, responsive Laboratory Tests Test 09/19/20 16:41 09/19/20 21:32 09/20/20 05:44 09/20/20 05:53 POC Whole Blood Glucose Pending 198 MG/DL (74-106) H 129 MG/DL (74-106) H White Blood Count 9.9 K/UL (4.8-10.8) Red Blood Count 3.24 M/UL (4.20-5.40) L Hemoglobin 10.1 G/DL (12.0-16.0) L Hematocrit 33.6 % (37.0-47.0) L Mean Corpuscular Volume 104 FL (80-99) H Mean Corpuscular Hemoglobin 31.2 PG (27.0-31.0) H Mean Corpuscular Hemoglobin Concent 30.1 G/DL (32.0-36.0) L Red Cell Distribution Width 14.4 % (11.6-14.8) Platelet Count 299 K/UL (150-450) Mean Platelet Volume 5.5 FL (6.5-10.1) L Neutrophils (%) (Auto) 79.4 % (45.0-75.0) H Lymphocytes (%) (Auto) 13.1 % (20.0-45.0) L Monocytes (%) (Auto) 5.2 % (1.0-10.0) Eosinophils (%) (Auto) 1.8 % (0.0-3.0) Basophils (%) (Auto) 0.5 % (0.0-2.0) Sodium Level 148 MMOL/L (136-145) H Potassium Level 3.2 MMOL/L (3.5-5.1) L Chloride Level 106 MMOL/L (98-107) Carbon Dioxide Level 39 MMOL/L (21-32) H Anion Gap 3 mmol/L (5-15) L Blood Urea Nitrogen 19 mg/dL (7-18) H Creatinine 0.9 MG/DL (0.55-1.30) Estimat Glomerular Filtration Rate > 60 mL/min (>60) Glucose Level 127 MG/DL (74-106) H Calcium Level 8.7 MG/DL (8.5-10.1) Total Bilirubin 0.3 MG/DL (0.2-1.0) Aspartate Amino Transf (AST/SGOT) 17 U/L (15-37) Alanine Aminotransferase (ALT/SGPT) 14 U/L (12-78) Alkaline Phosphatase 79 U/L (46-116) Total Protein 5.8 G/DL (6.4-8.2) L Albumin 2.4 G/DL (3.4-5.0) L Globulin 3.4 g/dL Albumin/Globulin Ratio 0.7 (1.0-2.7) L Current Medications Medications (Trade) Dose Ordered Sig/Arielle Route PRN Reason Start Time Stop Time Status Last Admin Dose Admin Acetaminophen (Tylenol) 650 mg Q4H PRN ORAL MILD/TEMP 09/12/20 01:30 10/12/20 01:29 Albuterol Sulfate (Proventil) 2.5 mg Q4HRT PRN HHN Shortness of breath 09/17/20 10:45 09/22/20 10:44 09/17/20 11:21 Apixaban (Eliquis) 5 mg BID ORAL 09/13/20 18:00 12/12/20 17:59 09/20/20 08:05 Atorvastatin Calcium (Lipitor) 10 mg BEDTIME ORAL 09/12/20 21:00 12/11/20 20:59 09/19/20 21:41 Dextrose (Dextrose 50%) 25 ml Q30M PRN IV Hypoglycemia 09/12/20 01:00 12/11/20 00:59 Dextrose (Dextrose 50%) 50 ml Q30M PRN IV Hypoglycemia 09/12/20 01:00 12/11/20 00:59 Donepezil HCl (Aricept) 5 mg DAILY ORAL 09/12/20 09:00 10/12/20 08:59 09/20/20 08:05 Gabapentin (Neurontin) 300 mg FOUR TIMES A DAY ORAL 09/12/20 13:00 10/12/20 12:59 09/20/20 08:06 Insulin Aspart (NovoLOG) BEFORE MEALS AND HS SUBQ 09/12/20 06:30 12/11/20 06:29 09/19/20 21:00 Iron Sucrose 100 mg/Sodium Chloride 60 ml @ 240 mls/hr BEDTIME IVPB 09/18/20 21:00 09/22/20 21:14 09/19/20 21:49 Loperamide HCl (Imodium) 2 mg Q12HR PRN ORAL Diarrhea 09/17/20 10:30 10/17/20 10:29 Losartan Potassium (Cozaar) 100 mg DAILY ORAL 09/12/20 09:00 10/12/20 08:59 09/20/20 08:06 Metformin HCl (Glucophage) 500 mg ACBREAKFAST ORAL 09/13/20 06:30 10/13/20 06:29 09/20/20 06:10 Multivitamins (Multivitamins) 1 tab DAILY ORAL 09/12/20 09:00 10/12/20 08:59 09/20/20 08:05 Oxybutynin Chloride (Ditropan) 5 mg DAILY ORAL 09/12/20 09:00 10/12/20 08:59 09/20/20 08:06 Pantoprazole (Protonix) 40 mg DAILY ORAL 09/12/20 09:00 10/12/20 08:59 09/20/20 08:06 Santos Amezcua MD Sep 20, 2020 11:40
[2020-09-20 12:00] VITALS: BP 108/55
[2020-09-20 16:00] VITALS: BP 139/51
--- NOTE | 2020-09-20 21:24 | General Progress Note ---
Subjective Allergies: Coded Allergies: ASPIRIN (Verified Allergy, Unknown, 07/29/18) HYDROMORPHONE (Verified Adverse Reaction, Severe, Hallucinations, 10/16/18) LORAZEPAM (Verified Adverse Reaction, Severe, Altered Mental Status, 10/16/18) per Laureen matias, patient had afib MORPHINE (Verified Adverse Reaction, Severe, hallucinations, 10/16/18) Subjective d/w RN diarrhea resolved d/w daughter Kimberley at length today family do not want to pursue GI endoscopy at this time they understand she is being discharged today they understand they can still pursue GI w/u as outpatient, if they change their mind they understand they need to communicate with assigned SNF MD that pt CBC will need close monitoring, since OB (+) on DOAC they understand that they will need to f/u with their in-network GI MD since they want in network MD coverage after discharge Objective Last 24 Hour Vital Signs Date Time Temp Pulse Resp B/P (MAP) Pulse Ox O2 Delivery O2 Flow Rate FiO2 09/20/20 16:00 98.2 63 20 139/51 (80) 99 09/20/20 12:00 97.3 64 20 108/55 (72) 100 09/20/20 12:00 55 09/20/20 09:00 Nasal Cannula 2.0 09/20/20 08:06 133/66 09/20/20 08:00 69 09/20/20 08:00 97.7 77 20 133/76 (95) 97 09/20/20 07:40 97 Nasal Cannula 2.0 28 09/20/20 07:40 77 18 97 Nasal Cannula 2.0 28 09/20/20 04:00 69 09/20/20 04:00 97.7 69 21 120/56 (77) 96 09/20/20 00:00 98.2 67 22 129/69 (89) 95 Intake and Output 09/19/20 09/20/20 19:00 07:00 Intake Total 360 ml 150 ml Balance 360 ml 150 ml Intake Oral 360 ml 150 ml # Voids 3 1 # Bowel Movements 1 Laboratory Tests 09/19/20 21:32: POC Whole Blood Glucose 198H 09/20/20 05:44: White Blood Count 9.9, Red Blood Count 3.24L, Hemoglobin 10.1L, Hematocrit 33.6L , Mean Corpuscular Volume 104H, Mean Corpuscular Hemoglobin 31.2H, Mean Corpuscular Hemoglobin Concent 30.1L, Red Cell Distribution Width 14.4, Platelet Count 299, Mean Platelet Volume 5.5L, Neutrophils (%) (Auto) 79.4H, Lymphocytes (%) (Auto) 13.1L, Monocytes (%) (Auto) 5.2, Eosinophils (%) (Auto) 1.8, Basophils (%) (Auto) 0.5, Sodium Level 148H, Potassium Level 3.2L, Chloride Level 106, Carbon Dioxide Level 39H, Anion Gap 3L, Blood Urea Nitrogen 19H, Creatinine 0.9, Estimat Glomerular Filtration Rate > 60, Glucose Level 127H, Calcium Level 8.7, Total Bilirubin 0.3, Aspartate Amino Transf (AST/SGOT) 17, Alanine Aminotransferase (ALT/SGPT) 14, Alkaline Phosphatase 79, Total Protein 5.8L, Albumin 2.4L, Globulin 3.4, Albumin/Globulin Ratio 0.7L 09/20/20 05:53: POC Whole Blood Glucose 129H 09/20/20 11:59: POC Whole Blood Glucose 114H Height (Feet): 5 Height (Inches): 4.00 Weight (Pounds): 130 Objective Elderly woman NCAT supple CTA RR abd soft no edema Assessment/Plan Status: stable, unchanged Assessment/Plan: Assessment - Diarrhea - resolved - Thickened (L) colon, C diff (-) - OB (+) stools - PNA - OBS - CHF - Atrial fibrillation - on Eliquis - Pulmonary HTN Recommendations - await stool Cx - Follow CBC - continue PPI - IV Iron - Risk benefit analysis for Eliquis - Push po - Ele[facility] Cooper Ruiz MD Sep 20, 2020 21:23
--- NOTE | 2020-09-21 00:20 | Cardiology Progress Note ---
Subjective DATE OF SERVICE: Sep 20, 2020 No pain. Still with SOB. Stool OB + Decreasing free water deficit. Monitor: Atrial fibrillation - rate controlled. 2D Echo: LVEF normal, Severe pulmonary hypertension, Mod TR, Mild MR. Objective Last 24 Hour Vital Signs Date Time Temp Pulse Resp B/P (MAP) Pulse Ox O2 Delivery O2 Flow Rate FiO2 09/20/20 16:00 98.2 63 20 139/51 (80) 99 09/20/20 12:00 97.3 64 20 108/55 (72) 100 09/20/20 12:00 55 09/20/20 09:00 Nasal Cannula 2.0 09/20/20 08:06 133/66 09/20/20 08:00 69 09/20/20 08:00 97.7 77 20 133/76 (95) 97 09/20/20 07:40 97 Nasal Cannula 2.0 28 09/20/20 07:40 77 18 97 Nasal Cannula 2.0 28 09/20/20 04:00 69 09/20/20 04:00 97.7 69 21 120/56 (77) 96 ROS: unchanged from my evaluation of 09/17/20. HEENT: normal ENT inspection RHYTHM: Afib LUNGS: diminished breath sounds, bilateral rhonchi CARDIAC: normal S1 and S2, irregularly irregular, bradycardia ABDOMEN: normal bowel sounds, non tender, soft EXTREMITIES: non-tender, normal inspection, trace edema Laboratory Tests Test 09/20/20 05:44 09/20/20 05:53 09/20/20 11:59 White Blood Count 9.9 K/UL (4.8-10.8) Red Blood Count 3.24 M/UL (4.20-5.40) L Hemoglobin 10.1 G/DL (12.0-16.0) L Hematocrit 33.6 % (37.0-47.0) L Mean Corpuscular Volume 104 FL (80-99) H Mean Corpuscular Hemoglobin 31.2 PG (27.0-31.0) H Mean Corpuscular Hemoglobin Concent 30.1 G/DL (32.0-36.0) L Red Cell Distribution Width 14.4 % (11.6-14.8) Platelet Count 299 K/UL (150-450) Mean Platelet Volume 5.5 FL (6.5-10.1) L Neutrophils (%) (Auto) 79.4 % (45.0-75.0) H Lymphocytes (%) (Auto) 13.1 % (20.0-45.0) L Monocytes (%) (Auto) 5.2 % (1.0-10.0) Eosinophils (%) (Auto) 1.8 % (0.0-3.0) Basophils (%) (Auto) 0.5 % (0.0-2.0) Sodium Level 148 MMOL/L (136-145) H Potassium Level 3.2 MMOL/L (3.5-5.1) L Chloride Level 106 MMOL/L (98-107) Carbon Dioxide Level 39 MMOL/L (21-32) H Anion Gap 3 mmol/L (5-15) L Blood Urea Nitrogen 19 mg/dL (7-18) H Creatinine 0.9 MG/DL (0.55-1.30) Estimat Glomerular Filtration Rate > 60 mL/min (>60) Glucose Level 127 MG/DL (74-106) H Calcium Level 8.7 MG/DL (8.5-10.1) Total Bilirubin 0.3 MG/DL (0.2-1.0) Aspartate Amino Transf (AST/SGOT) 17 U/L (15-37) Alanine Aminotransferase (ALT/SGPT) 14 U/L (12-78) Alkaline Phosphatase 79 U/L (46-116) Total Protein 5.8 G/DL (6.4-8.2) L Albumin 2.4 G/DL (3.4-5.0) L Globulin 3.4 g/dL Albumin/Globulin Ratio 0.7 (1.0-2.7) L POC Whole Blood Glucose 129 MG/DL (74-106) H 114 MG/DL (74-106) H Microbiology Date/Time Source Procedure Growth Status 09/18/20 22:20 Stool Ova and Parasites - Final Complete 09/18/20 22:20 Stool Ova and Parasite Result 1 - Final Complete Assessment/Plan Assessment/Plan Chronic atrial fibrillation - rate controlled, trending slow-normal range Ac/chronic diastolic CHF Severe pulmonary hypertension NSTE myocardial infarction precipitated by severe respiratory distress COPD exacerbation with hypoxia NIDDM Hypertension - now with low-normal BP range. Dehydration/hypernatremia Off amlodipine due to low-normal BP range; monitor BP parameters Full anticoagulation with apixaban Diuresis based on clinical parameters Monitor acid-base parameters Steroid taper per pulmonary Continue cardiac monitoring Follow up lytes Free water replacement as needed Possible GI procedure for eval of OB+ stool Iftikhar Carballo MD Sep 21, 2020 00:20
--- NOTE | 2020-09-24 09:30 | Discharge Summary ---
Discharge Summary Discharge Summary _ DATE OF ADMISSION: 09/11/2020 DATE OF DISCHARGE: 09/20/2020 DISCHARGED BY: Dr. Bowman REASON FOR ADMISSION: 85 years old female with past medical history of hypertension, congestive heart failure, on diuretics, atrial fibrillation, on Eliquis diabetes mellitus, dementia, presented for generalized weakness and diarrhea. Patient apparently was noted to have alternating episodes of constipation and diarrhea. She never had a colonoscopy in the past. Upon evaluation patient was hypotensive with blood pressure 89/54 , pulse oximetry was 95% on 2 L of oxygen via nasal cannula. Laboratory work-up revealed no leukocytosis, hemoglobin 12.8,, hematocrit 41.2 platelet count 266. Stable electrolytes. BUN 19, creatinine 1.1. Glucose 112. Stable LFT EKG revealed atrial fibrillation with controlled ventricular response . Troponin 0.173. Rapid COVID-19 was negative. Chest x-ray revealed bilateral infiltrates , suspicious for bilateral pneumonia or possibly indicative of pulmonary edema. CT scan of the abdomen and pelvis revealed reticular and ground-glass opacities within the lingula and bilateral lower lobes , possibly representing atelectasis versus infectious process. Mild wall thickening of the descending colon and sigmoid colon which may represent nonspecific colitis. CT of the head revealed no acute intracranial pathology. Urinalysis revealed +2 protein , ,+1 leukocyte esterase pyuria and moderate bacteria. In emergency department patient received IV fluids and started on empiric antibiotics. Patient received PPI , antiemetic , and admitted for further management. CONSULTANTS: technical expert ID specialist Dr. Mcrae GI specialist Dr. Ruiz [facility] COURSE: Patient admitted to telemetry floor . Serial troponin were monitored. Patient started on broad-spectrum antibiotics. Symptomatic treatment provided . Serial troponin remained elevated . Levels are flat without significant peak or 90-year. EKG revealed atrial fibrillation with controlled ventricular response. Echocardiogram demonstrated preserved ejection fraction of 65% with no evidence of left ventricular hypertrophy. No evidence of wall motion abnormality. Mild mitral and moderate tricuspid regurgitation. Right ventricular systolic pressure of 75, consistent with severe pulmonary hypertension. Per technical expert, NSTEMI was most likely precipitated by severe respiratory distress due to COPD exacerbation with hypoxia. Blood pressure was closely monitored and managed accordingly, given low to normal BP range. Patient was continued on full anticoagulation with apixaban. Spot diuresis provided based on clinical parameters. Renal parameters and electrolytes were closely monitored. Statin continued. Supplemental oxygen provided and titrated to keep pulse oximetry above 92% Pulse oximetry remained stable on room air. Nebulizing treatment with bronchodilator provided. Patient was followed -up with chest x-ray. Blood cultures were negative. Repeated Covid by PCR was negative. Urine culture was negative. Stool for C. difficile and stool culture were negative. Stool for ova and parasite was negative. Leukocytosis resolved, no fevers. Patient completed treatment for possible pneumonia. ID specialist recommended to observe patient off antibiotics. Symptomatic treatment provided. Diarrhea slowly resolved. Stool for occult blood was positive. Patient was on PPI. Hemoglobin and hematocrit were closely monitored with goal to keep hemoglobin above 7. Oral fluids were pushed, Strict aspiration precaution maintained. Family declined GI procedure at this time. Family understood that they can pursue the GI procedure as outpatient, if they change their mind. CBC will be closely monitored at the facility due to stool OB being positive , and patient on anticoagulation therapy. Patient was ready for discharge. Family was in agreement with discharge plan . Patient subsequently was discharged to assisted facility for continuation of care. FINAL DIAGNOSES: Possible sepsis Possible atypical pneumonia , status post treatment NSTEMI Acute on chronic diastolic CHF COPD exacerbation with hypoxia Anemia Stool OB positive Thickened left colon , possible colitis Chronic atrial fibrillation Severe pulmonary hypertension Diabetes mellitus Hypertension Dehydration/ Hypernatremia Diarrhea ( stool C. difficile negative) Alzheimer disease DISCHARGE MEDICATIONS: See Medication Reconciliation list. DISCHARGE INSTRUCTIONS: Patient was discharged to the assisted facility. Follow up with medical doctor at the facility. I have been assigned to dictate discharge summary for this account. I was not involved in the patient's management. Eda Menjivar NP Sep 24, 2020 09:30
== END 2020-09-20 17:13 | DRG 871 ==
LOC: EMR 18:56 → 2W 19:57 → EDBEDREQ 20:29 → 2E 09-14 17:55
DX: A41.9 Sepsis, unspecified organism (principal); J18.9 Pneumonia, unspecified organism; I21.4 Non-ST elevation (NSTEMI) myocardial infarction; I50.33 Acute on chronic diastolic (congestive) heart failure; E87.0 Hyperosmolality and hypernatremia; I48.20 Chronic atrial fibrillation, unspecified; J44.1 Chronic obstructive pulmonary disease with (acute) exacerbation; I11.0 Hypertensive heart disease with heart failure; K52.9 Noninfective gastroenteritis and colitis, unspecified; G30.9 Alzheimer's disease, unspecified; F02.80 Dementia in other diseases classified elsewhere, unspecified severity, without behavioral disturbance, psychotic disturbance, mood disturbance, and anxiety; Z88.6 Allergy status to analgesic agent; Z88.8 Allergy status to other drugs, medicaments and biological substances; Z79.01 Long term (current) use of anticoagulants; Z79.84 Long term (current) use of oral hypoglycemic drugs; I27.20 Pulmonary hypertension, unspecified; E11.9 Type 2 diabetes mellitus without complications; I36.1 Nonrheumatic tricuspid (valve) insufficiency; I34.0 Nonrheumatic mitral (valve) insufficiency; R09.02 Hypoxemia; E86.0 Dehydration; R19.7 Diarrhea, unspecified
CPT/HCPCS: 36415; 70450; 71045; 74177; 80048; 80053; 80202; 81003; 82270; 82550; 82553; 82728; 82962; 83540; 83550; 83605; 83615; 83880; 84484; 85007; 85025; 85379; 85610; 85730; 86140; 87040; 87045; 87086; 87324; 93005; 93306; 94640; 94664; 96361; 96365; 96368; 96375; 99285; J1815; J2405; J7030; J8499; U0002